=== PATIENT | female | born 1950 | race Caucasian/White ===

== ENCOUNTER 2018-08-30 13:00 | Observation (INO) | payer BC, MEDICARE ==
[2018-08-30] MEDS ORDERED: SODIUM CHLORIDE 0.9% 1,000 ML IV STA (13:09)
[2018-08-30] MEDS ORDERED: ONDANSETRON 4 MG/2 ML VIAL IVP STA (13:09)
[2018-08-30 13:12] VITALS: RESP 18
--- NOTE | 2018-08-30 13:13 | ED ---
General Adult HPI - General Stated complaint: Rectal Bleeding Time Seen by Provider: 08/30/18 13:00 Source: RN notes reviewed - History of Present Illness Initial comments: This is a 68-year-old female presents emergency department via EMS because she' s been having nausea vomiting and diarrhea since last Friday. Patient also states that there is blood in the stool. Patient denies any abdominal pain but EMS reports that when he presses her left flank she is tender. Family also called EMS because they thought she was a little bit lethargic and maybe even altered. Patient was alert and oriented 2 and she knew Peggy time but she couldn't remember the year though she did remember the president. Patient does appear lethargic. Patient's family is not here at this time but they will be coming later. Patient denies any fever chills per patient denies any chest pain palpitations difficulty breathing or shortness of breath. Patient denies any lightheadedness or dizziness. - Related Data Home Medications Medication Instructions Recorded Confirmed Zolpidem [Ambien] 10 mg PO HS PRN 05/03/15 08/30/18 Omeprazole 20 mg PO DAILY 08/30/18 08/30/18 Allergies Allergy/AdvReac Type Severity Reaction Status Date / Time No Known Allergies Allergy Verified 08/30/18 13:37 Review of Systems ROS Statement: Those systems with pertinent positive or pertinent negative responses have been documented in the HPI. ROS Other: All systems not noted in ROS Statement are negative. Past Medical History Past Medical History: No Reported History History of Any Multi-Drug Resistant Organisms: None Reported Past Surgical History: Orthopedic Surgery Past Psychological History: No Psychological Hx Reported Smoking Status: Never smoker Past Alcohol Use History: Occasional Past Drug Use History: None Reported General Exam - General Exam Comments Initial Comments: GENERAL: Patient is well-developed and well-nourished. Patient is nontoxic and well- hydrated and is in mild distress. ENT: Neck is soft and supple. No significant lymphadenopathy is noted. Oropharynx is clear. Dry mucous membranes. Neck has full range of motion without eliciting any pain. EYES: The sclera were anicteric and conjunctiva were pink and moist. Extraocular movements were intact and pupils were equal round and reactive to light. Eyelids were unremarkable. PULMONARY: Unlabored respirations. Good breath sounds bilaterally. No audible rales rhonchi or wheezing was noted. CARDIOVASCULAR: There is a regular rate and rhythm without any murmurs gallops or rubs. ABDOMEN: Patient has some slight left flank pain on palpation.. No palpable organomegaly was noted. There is no palpable pulsatile mass. SKIN: Skin is clear with no lesions or rashes and otherwise unremarkable. NEUROLOGIC: Patient is alert and oriented 2 with the only question she missed was a year but she was able since Christmastime and she knew the president. Cranial nerves II through XII are grossly intact. Motor and sensory are also intact. Normal speech, volume and content. Symmetrical smile. MUSCULOSKELETAL: Normal extremities with adequate strength and full range of motion. No lower extremity swelling or edema. No calf tenderness. LYMPHATICS: No significant lymphadenopathy is noted PSYCHIATRIC: Normal psychiatric evaluation. Course Vital Signs 08/30/18 08/30/18 13:06 14:15 Temperature 98.3 F Pulse Rate 95 89 Respiratory 18 18 Rate Blood Pressure 138/76 143/81 O2 Sat by Pulse 96 99 Oximetry Medical Decision Making - Lab Data Result diagrams: 08/30/18 13:10 08/30/18 13:10 Lab Results 08/30/18 08/30/18 08/30/18 Range/Units 13:10 13:10 13:10 WBC 11.0 H (3.8-10.6) k/uL RBC 3.66 L (3.80-5.40) m/uL Hgb 12.5 (11.4-16.0) gm/dL Hct 37.2 (34.0-46.0) % MCV 101.6 H (80.0-100.0) fL MCH 34.0 (25.0-35.0) pg MCHC 33.4 (31.0-37.0) g/dL RDW 11.8 (11.5-15.5) % Plt Count 169 (150-450) k/uL Neutrophils % 77 % Lymphocytes % 15 % Monocytes % 5 % Eosinophils % 1 % Basophils % 0 % Neutrophils # 8.4 H (1.3-7.7) k/uL Lymphocytes # 1.7 (1.0-4.8) k/uL Monocytes # 0.5 (0-1.0) k/uL Eosinophils # 0.1 (0-0.7) k/uL Basophils # 0.0 (0-0.2) k/uL PT (9.0-12.0) sec INR (<1.2) APTT (22.0-30.0) sec Sodium 136 L (137-145) mmol/L Potassium 3.9 (3.5-5.1) mmol/L Chloride 103 (98-107) mmol/L Carbon Dioxide 20 L (22-30) mmol/L Anion Gap 13 mmol/L BUN 13 (7-17) mg/dL Creatinine 0.64 (0.52-1.04) mg/dL Est GFR (CKD-EPI)AfAm >90 (>60 ml/min/1.73 sqM) Est GFR (CKD-EPI)NonAf >90 (>60 ml/min/1.73 sqM) Glucose 112 H (74-99) mg/dL Plasma Lactic Acid Quintin (0.7-2.0) mmol/L Calcium 8.8 (8.4-10.2) mg/dL Magnesium 1.6 (1.6-2.3) mg/dL Total Bilirubin 1.1 (0.2-1.3) mg/dL AST 56 H (14-36) U/L ALT 61 H (9-52) U/L Alkaline Phosphatase 93 (38-126) U/L Total Creatine Kinase 36 (30-135) U/L CK-MB (CK-2) 0.6 (0.0-2.4) ng/mL CK-MB (CK-2) Rel Index 1.7 Troponin I <0.012 (0.000-0.034) ng/mL Total Protein 7.1 (6.3-8.2) g/dL Albumin 3.7 (3.5-5.0) g/dL Lipase 96 (23-300) U/L Urine Color Urine Appearance (Clear) Urine pH (5.0-8.0) Ur Specific [place] (1.001-1.035) Urine Protein (Negative) Urine Glucose (UA) (Negative) Urine Ketones (Negative) Urine Blood (Negative) Urine Nitrite (Negative) Urine Bilirubin (Negative) Urine Urobilinogen (<2.0) mg/dL Ur Leukocyte Esterase (Negative) Urine RBC (0-5) /hpf Urine WBC (0-5) /hpf Ur Squamous Epith Cells (0-4) /hpf Urine Bacteria (None) /hpf Urine Mucus (None) /hpf Blood Type Blood Type Confirm Blood Type Recheck Antibody Screen Spec Expiration Date 08/30/18 08/30/18 08/30/18 Range/Units 13:10 13:10 13:10 WBC (3.8-10.6) k/uL RBC (3.80-5.40) m/uL Hgb (11.4-16.0) gm/dL Hct (34.0-46.0) % MCV (80.0-100.0) fL MCH (25.0-35.0) pg MCHC (31.0-37.0) g/dL RDW (11.5-15.5) % Plt Count (150-450) k/uL Neutrophils % % Lymphocytes % % Monocytes % % Eosinophils % % Basophils % % Neutrophils # (1.3-7.7) k/uL Lymphocytes # (1.0-4.8) k/uL Monocytes # (0-1.0) k/uL Eosinophils # (0-0.7) k/uL Basophils # (0-0.2) k/uL PT 11.2 (9.0-12.0) sec INR 1.1 (<1.2) APTT 23.0 (22.0-30.0) sec Sodium (137-145) mmol/L Potassium (3.5-5.1) mmol/L Chloride (98-107) mmol/L Carbon Dioxide (22-30) mmol/L Anion Gap mmol/L BUN (7-17) mg/dL Creatinine (0.52-1.04) mg/dL Est GFR (CKD-EPI)AfAm (>60 ml/min/1.73 sqM) Est GFR (CKD-EPI)NonAf (>60 ml/min/1.73 sqM) Glucose (74-99) mg/dL Plasma Lactic Acid Quintin 0.9 (0.7-2.0) mmol/L Calcium (8.4-10.2) mg/dL Magnesium (1.6-2.3) mg/dL Total Bilirubin (0.2-1.3) mg/dL AST (14-36) U/L ALT (9-52) U/L Alkaline Phosphatase (38-126) U/L Total Creatine Kinase (30-135) U/L CK-MB (CK-2) (0.0-2.4) ng/mL CK-MB (CK-2) Rel Index Troponin I (0.000-0.034) ng/mL Total Protein (6.3-8.2) g/dL Albumin (3.5-5.0) g/dL Lipase (23-300) U/L Urine Color Urine Appearance (Clear) Urine pH (5.0-8.0) Ur Specific [place] (1.001-1.035) Urine Protein (Negative) Urine Glucose (UA) (Negative) Urine Ketones (Negative) Urine Blood (Negative) Urine Nitrite (Negative) Urine Bilirubin (Negative) Urine Urobilinogen (<2.0) mg/dL Ur Leukocyte Esterase (Negative) Urine RBC (0-5) /hpf Urine WBC (0-5) /hpf Ur Squamous Epith Cells (0-4) /hpf Urine Bacteria (None) /hpf Urine Mucus (None) /hpf Blood Type O Positive Blood Type Confirm Blood Type Recheck CABO Indicated Antibody Screen NEGATIVE Spec Expiration Date 09/02/2018 - 230908/30/18 08/30/18 Range/Units 13:10 13:27 WBC (3.8-10.6) k/uL RBC (3.80-5.40) m/uL Hgb (11.4-16.0) gm/dL Hct (34.0-46.0) % MCV (80.0-100.0) fL MCH (25.0-35.0) pg MCHC (31.0-37.0) g/dL RDW (11.5-15.5) % Plt Count (150-450) k/uL Neutrophils % % Lymphocytes % % Monocytes % % Eosinophils % % Basophils % % Neutrophils # (1.3-7.7) k/uL Lymphocytes # (1.0-4.8) k/uL Monocytes # (0-1.0) k/uL Eosinophils # (0-0.7) k/uL Basophils # (0-0.2) k/uL PT (9.0-12.0) sec INR (<1.2) APTT (22.0-30.0) sec Sodium (137-145) mmol/L Potassium (3.5-5.1) mmol/L Chloride (98-107) mmol/L Carbon Dioxide (22-30) mmol/L Anion Gap mmol/L BUN (7-17) mg/dL Creatinine (0.52-1.04) mg/dL Est GFR (CKD-EPI)AfAm (>60 ml/min/1.73 sqM) Est GFR (CKD-EPI)NonAf (>60 ml/min/1.73 sqM) Glucose (74-99) mg/dL Plasma Lactic Acid Quintin (0.7-2.0) mmol/L Calcium (8.4-10.2) mg/dL Magnesium (1.6-2.3) mg/dL Total Bilirubin (0.2-1.3) mg/dL AST (14-36) U/L ALT (9-52) U/L Alkaline Phosphatase (38-126) U/L Total Creatine Kinase (30-135) U/L CK-MB (CK-2) (0.0-2.4) ng/mL CK-MB (CK-2) Rel Index Troponin I (0.000-0.034) ng/mL Total Protein (6.3-8.2) g/dL Albumin (3.5-5.0) g/dL Lipase (23-300) U/L Urine Color Yellow Urine Appearance Clear (Clear) Urine pH 6.0 (5.0-8.0) Ur Specific [place] 1.022 (1.001-1.035) Urine Protein Trace H (Negative) Urine Glucose (UA) Negative (Negative) Urine Ketones 4+ H (Negative) Urine Blood Negative (Negative) Urine Nitrite Positive H (Negative) Urine Bilirubin Negative (Negative) Urine Urobilinogen 4.0 (<2.0) mg/dL Ur Leukocyte Esterase Trace H (Negative) Urine RBC <1 (0-5) /hpf Urine WBC 8 H (0-5) /hpf Ur Squamous Epith Cells 1 (0-4) /hpf Urine Bacteria Many H (None) /hpf Urine Mucus Rare H (None) /hpf Blood Type Blood Type Confirm O Positive Blood Type Recheck Antibody Screen Spec Expiration Date Disposition Clinical Impression: Gastrointestinal hemorrhage, Urinary tract infection, Colitis, Altered mental status Disposition: ADMITTED IP TO THIS HOSP Referrals: None,Stated [Primary Care Provider] - 1-2 days Time of Disposition: 15:35
[2018-08-30 13:32] LABS: Basophils % (A) 0 %; Eosinophils # (A) 0.1 k/uL (0-0.7); Eosinophils % (A) 1 %; HCT 37.2 % (34.0-46.0); HGB 12.5 gm/dL (11.4-16.0); Lymphocytes # (A) 1.7 k/uL (1.0-4.8); Lymphocytes % (A) 15 %; MCHC 33.4 g/dL (31.0-37.0); MCV 101.6 fL (80.0-100.0); Mean Platelet Volume 7.2; Monocytes # (A) 0.5 k/uL (0-1.0); Monocytes % (A) 5 %; Neutrophils # (A) 8.4 k/uL (1.3-7.7); Neutrophils % (A) 77 %; Platelet Count 169 k/uL (150-450); RBC 3.66 m/uL (3.80-5.40); RDW 11.8 % (11.5-15.5)
[2018-08-30 13:41] LABS: INR 1.1 (<1.2); Prothrombin Time 11.2 sec (9.0-12.0)
[2018-08-30 13:42] LABS: ALT 61 U/L (9-52); AST 56 U/L (14-36); Albumin 3.7 g/dL (3.5-5.0); Alkaline Phosphatase 93 U/L (38-126); Anion Gap 13 mmol/L; Blood Urea Nitrogen 13 mg/dL (7-17); Calcium 8.8 mg/dL (8.4-10.2); Carbon Dioxide 20 mmol/L (22-30); Chloride 103 mmol/L (98-107); Glucose 112 mg/dL (74-99); Lipase 96 U/L (23-300); Magnesium 1.6 mg/dL (1.6-2.3); Potassium 3.9 mmol/L (3.5-5.1); Sodium 136 mmol/L (137-145); Total Bilirubin 1.1 mg/dL (0.2-1.3); Total Protein 7.1 g/dL (6.3-8.2)
[2018-08-30 13:50] LABS: Creatine Kinase 36 U/L (30-135)
[2018-08-30 13:53] LABS: Appearance,Urine Clear (Clear); Bacteria,Urine Many /hpf; Bilirubin,Urine Negative (Negative); Blood,Urine Negative (Negative); Color,Urine Yellow; Glucose,Urine (UA) Negative (Negative); Ketones,Urine 4+ (Negative); Leukocyte Esterase,Urine Trace (Negative); Mucus,Urine Rare /hpf; Nitrite,Urine Positive (Negative); Protein,Urine Trace (Negative); RBC,Urine <1 /hpf (0-5); Specific Gravity,Urine 1.022 (1.001-1.035); Squamous Epithelial Cell,Urine 1 /hpf (0-4); WBC,Urine 8 /hpf (0-5)
[2018-08-30 14:03] LABS: Creatine Kinase MB 0.6 ng/mL (0.0-2.4); Troponin I <0.012 ng/mL (0.000-0.034)
[2018-08-30] MEDS ORDERED: PANTOPRAZOLE 40 MG/10 ML VIAL IVP STA (14:07)
[2018-08-30] MEDS ORDERED: cefTRIAXone 2,000 MG in SODIUM CHLORIDE 0.9% 100 ML IVPB STA (14:36)
--- NOTE | 2018-08-30 15:31 | CT ---
EXAMINATION TYPE: CT abdomen pelvis w con DATE OF EXAM: 08/30/2018 COMPARISON: 02/23/2010 HISTORY: abdominal pain, rectal bleed, vomiting CT DLP: 645.7 mGycm Automated exposure control for dose reduction was used. TECHNIQUE: Helical acquisition of images was performed from the lung bases through the pelvis. CONTRAST: Performed without Oral Contrast and with IV Contrast, patient injected with 100 mL of Isovue 300. FINDINGS: There is patchy infiltrate and atelectasis at the posterior lung bases. Heart size is normal. There i s no pericardial effusion. There is small hiatal hernia. There are of the stomach appears normal. Karlene er shows no focal defect. Bile ducts are not dilated. Gallbladder is elongated. There is no evidence of a pancreatic mass. Left kidneys show satisfactory contrast opacification. There is no hydronephrosis. Right kidney shows deformity and severe cortical thinning. There is no retroperitoneal adenopathy. Bladder distends smoothly. There is no inguinal hernia. There is no free fluid in the pelvis. There is wall thickening and fat stranding around the splenic flexure of the colon. Wall measures up to 1 cm. There is slight wall thickening of the distal transverse colon also. There is some fluid in the left paracolic gutter with wall thickening of the proximal descending colon. There are compression fractures of multiple vertebra including L5 L3 L2 T11 and T9. There is up to 75 % anterior wedging. Uterus is anteverted. I see no pelvic mass. IMPRESSION: THERE IS INFLAMMATORY CHANGES AND WALL THICKENING OF THE SPLENIC FLEXURE OF THE COLON CONSISTENT WITH NONSPECIFIC COLITIS. THIS IS A CHANGE COMPARED TO OLD EXAM. THERE IS DEFORMITY AND THINNING OF THE CORTEX RIGHT KIDNEY WITH CLEARING OF THE SEVERE HYDRONEPHROSIS EVIDENT ON THE OLD CT SCAN. THERE IS NO BASILAR MILD PULMONARY INFILTRATES AND ATELECTASIS.
[2018-08-30] MEDS ORDERED: SODIUM CHLORIDE 0.9% 1,000 ML IV ONE (15:37)
[2018-08-30 19:42] VITALS: BMI 23.9
[2018-08-30] MEDS ORDERED: ZOLPIDEM 10 MG TAB PO PRN (21:02)
--- NOTE | 2018-08-30 23:06 | HP ---
HISTORY AND PHYSICAL CHIEF COMPLAINT: Bright red rectal bleeding. HISTORY OF PRESENT ILLNESS: This is the first admission for this 68-year-old, G1, P1, A0 white female. Several days ago she had some diarrhea and then it turned to bloody liquid stool. She had a little bit of mild abdominal cramping, but no nausea, vomiting, fever, chills, etc. Her sister came in on the day of admission and thought that she should go to the hospital. Apparently, she also seemed to be a little bit confused. She has otherwise been in excellent health. REVIEW OF SYSTEMS: She has had no headaches, focal neurologic deficits, change in vision or hearing, sensory, motor or cranial nerve abnormalities, shortness of breath, cough, hemoptysis, wheezing, asthma, hypertension, murmurs, rheumatic fever, palpitations, orthopnea, PND, ulcer disease. She does take Prilosec for chronic gastritis. She has had no prior history of any bowel problems including crampy abdominal pain, hematochezia, melena, etc. She has had no hematuria, frequency, urgency, dysuria, etc. Her urine does demonstrate the likelihood of a UTI. She is not diabetic. PAST MEDICAL HISTORY, FAMILY HISTORY, PERSONAL, SOCIAL HISTORY: Otherwise all unremarkable and noncontributory. She is not on any medication and she is not allergic. Surgically she has had bone spurs removed from her heels and she once had a left breast biopsy. MEDICATIONS: The only medication she takes is Ambien. She does not smoke. PHYSICAL EXAMINATION: Blood pressure 135/78 with a pulse of 83, respirations of 19, she is afebrile. In general, she appeared to be well developed, well nourished, in no acute distress. Skin color is normal skin is warm, dry. Lymph nodes not enlarged. Head, ears, eyes, nose, mouth, and throat were normal. Neck veins not distended. Thyroid not enlarged. Chest is clear. Cardiac exam is normal. Normal sinus rhythm and no murmurs or extra sounds. The abdomen is soft, nontender, without visceromegaly or masses. Bowel sounds are present. Extremities are normal. Neurologically she is intact. ADMITTING DIAGNOSES: 1. Hematochezia. 2. History of gastritis. 3. Urinary tract infection. PLAN: 1. Bedrest. 2. IV fluids. 3. Monitor GI activity and vital signs as well as hemoglobin. 4. Obtain gastroenterology referral for probable upper and lower GI endoscopies in the near future. MMODL / IJN: [id number] /
[2018-08-31 06:24] VITALS: BP 147/73; PULSE 96; TEMP 97.7
--- NOTE | 2018-08-31 09:46 | CONS ---
CONSULTATION DATE OF SERVICE: 08/31/2018 REASON FOR CONSULTATION: Rectal bleeding. HISTORY OF PRESENT ILLNESS: The patient is a 68-year-old pleasant white female came into the emergency room after having loose bloody bowel movement on Friday. Her sister came to see her the following day and brought her to the emergency room and subsequently admitted to the hospital for further evaluation. The patient states that for the last 3 days, she did not have any further episodes of bleeding. In fact, last night she had a brown bowel movement which was solid. She denies any abdominal pain. Never had these symptoms in the past. Never had a colonoscopy in the past. In the emergency room, she had a CT scan of the abdomen and pelvis done that showed thickening of the left colon consistent with colitis. PAST MEDICAL HISTORY: GERD. MEDICATIONS: Medications at home Prilosec and Ambien. ALLERGIES: None. SOCIAL HISTORY: No smoking or alcohol use. FAMILY HISTORY: Unremarkable. REVIEW OF SYSTEMS: CARDIOPULMONARY: No chest pain or shortness of breath. GENITOURINARY: No dysuria or hematuria. MUSCULOSKELETAL: Unremarkable. SKIN: Unremarkable. ENDOCRINE: Unremarkable. PSYCHIATRIC: Unremarkable. NEUROLOGY: Unremarkable. ENT/VISION: Unremarkable. CONSTITUTIONAL: No recent weight loss. No fever, chills, night sweats. PHYSICAL EXAMINATION: On physical examination, she appears comfortable. No apparent distress. Vital signs are stable. Blood pressure is 143/81, pulse rate 89, temperature 98.2. HEENT examination unremarkable. Conjunctivae pink. Sclerae anicteric. Oral cavity no lesions. NECK: No JVD or lymph node enlargement. Chest was clear to auscultation. HEART: Regular rate and rhythm. ABDOMEN: Soft. Bowel sounds are positive. No organomegaly. EXTREMITIES: No pedal edema. SKIN: No rashes. NEUROLOGIC: Alert and oriented x3. No focal deficits. LABS: Labs done at the time of admission to the hospital, WBC 11, hemoglobin 12.5, platelets are normal. Basic metabolic panel is within normal limits. CT of the abdomen and pelvis done yesterday in the emergency room showed thickening of the colon in the splenic flexure extending to the distal transverse colon and proximal descending colon consistent with colitis. IMPRESSION: This is a patient who presents to the hospital with one episode of bloody diarrhea that happened 3 days ago. Since then, she did not have any episodes of bleeding. She denies any abdominal pain. Never had these symptoms in the past. CAT scan of the abdomen showed thickening of the descending colon and distal transverse colon consistent with acute colitis. At this time, cannot rule out possibility of ischemic colitis versus infectious colitis, but appears to be very self-limited. The patient's symptoms have resolved and no further bleeding or diarrhea noted. RECOMMENDATIONS: 1. Advance to regular diet. 2. Discussed with the patient that she needs to have a colonoscopy done to investigate this further. Since she is doing well, I suggested that we can perform this on outpatient basis, but she elects to have this done at [facility]. The patient can be discharged home today. Thank you for this consultation. MMAKILL / KRZYSZTOFN: [id number] /
[2018-08-31 11:24] LABS: Basophils % (A) 0 %; Eosinophils # (A) 0.1 k/uL (0-0.7); Eosinophils % (A) 1 %; HCT 37.2 % (34.0-46.0); HGB 12.7 gm/dL (11.4-16.0); Lymphocytes # (A) 1.8 k/uL (1.0-4.8); Lymphocytes % (A) 23 %; MCH 34.8 pg (25.0-35.0); MCHC 34.1 g/dL (31.0-37.0); MCV 102.2 fL (80.0-100.0); Mean Platelet Volume 7.3; Monocytes # (A) 0.5 k/uL (0-1.0); Monocytes % (A) 6 %; Neutrophils # (A) 5.6 k/uL (1.3-7.7); Neutrophils % (A) 69 %; Platelet Count 178 k/uL (150-450); RBC 3.64 m/uL (3.80-5.40); RDW 12.1 % (11.5-15.5)
[2018-08-31 11:38] LABS: Anion Gap 13 mmol/L; Blood Urea Nitrogen 9 mg/dL (7-17); Carbon Dioxide 17 mmol/L (22-30); Chloride 109 mmol/L (98-107); Glucose 99 mg/dL (74-99); Potassium 4.1 mmol/L (3.5-5.1); Sodium 139 mmol/L (137-145)
[2018-08-31] MEDS ORDERED: SULFAMETHOX-TMP 800-160MG 1 EACH TAB PO SCH (21:00)
--- NOTE | 2018-09-01 07:45 | DS ---
DISCHARGE SUMMARY CHIEF COMPLAINT: History of hematochezia and urinary tract infection with episode of confusion. HISTORY OF PRESENT ILLNESS AND PHYSICAL EXAM: Details of this lady's history and physical can be found in the initial workup. COURSE IN HOSPITAL: After admission she was placed on bedrest and was started on intravenous fluids. She had no further abdominal pain, bleeding, etc. She remained stable and it was felt that she could be discharged on the . She will go home on Bactrim for urinary tract infection and she will follow up in a few days in the office. She will then be scheduled for a colonoscopy. FINAL DIAGNOSES: 1. Hematochezia, source unknown. 2. Urinary tract infection. OPERATIONS: None. CONSULTATIONS: Gastroenterology. She is improved. MMODL / IJN: [id number] /
== END 2018-08-31 13:30 | disposition home or self-care (01) ==
LOC: EC 13:00 → 3NMEDONC 16:00
PROVIDERS: ADMIT Family Medicine; ATTEND Family Medicine
DX: K29.51 Unspecified chronic gastritis with bleeding (principal); N39.0 Urinary tract infection, site not specified; K21.9 Gastro-esophageal reflux disease without esophagitis; Z79.899 Other long term (current) drug therapy
CPT/HCPCS: 96361; 96365; 96375; 99285; 36415; 86900; 86901; 80053; 80048; 82550; 82553; 83605; 83690; 83735; 84484; 85025 ×2; 85610; 85730; 86850; 81001; 87086; 87077; 87186; 74177; G0378 ×2; J2405; J0696; C9113; Q9967; 96360; 96374

== ENCOUNTER → 2019-04-07 | Outpatient (CLI) | payer MEDICARE ==
[2019-04-07 14:44] LABS: African American GFR (CKD) >90 (>60 ml/min/1.73 sqM); Blood Urea Nitrogen 12 mg/dL (7-17)
--- NOTE | 2019-04-07 16:37 | CT ---
EXAMINATION TYPE: CT abdomen w con DATE OF EXAM: 04/07/2019 COMPARISON: 08/30/2018 HISTORY: 69-year-old female Hematuria and left side flank pain. TECHNIQUE: Contiguous axial scanning of the abdomen and pelvis following administration of 100 ml Iso natacha 300 IV contrast. Delayed images through the kidneys and coronal/sagittal reconstructions perform ed. CT DLP: 402.2 mGycm Automated exposure control for dose reduction was used. FINDINGS: Heart normal size without pericardial effusion. Coronary vessel calcifications are present. Tortuous descending thoracic aorta. Residual mild strandy scarring/atelectasis in the lower lungs. No pleural effusion. Tiny hiatal hernia. A few tiny subcentimeter hypodensities within the liver are too small fractured CT characterization, likely cysts. Portal venous system is patent. No biliary ductal dilatation. Gallbladder, adrenal glands, spleen, and pancreas appear within normal limits. Redemonstrated atretic right kidney. Extra renal pelvis on the left. No dilated small bowel, free fluid, or free air. No mesenteric or retroperitoneal lymphadenopathy. Normal appendix. There is circumferential wall thickening involving the cecum and lower ascending colon and referred t o axial image 41. Otherwise, scattered mild to moderate stool within the colon. Moderate atherosclerotic calcifications abdominal aorta and iliac arteries. The pelvis is not imaged. Bones: Osteopenia. Redemonstrated superior endplate deformities of L2 and L3. T11 vertebral compressi on collapse is present previously. There is new fracture along the anterior inferior endplate of T10. No retropulsion into the spinal canal. IMPRESSION: 1. MODERATE CIRCUMFERENCE WALL THICKENING OF THE CECUM AND LOWER ASCENDING COLON. FINDINGS SUGGEST NO NSPECIFIC COLITIS. CLINICALLY CORRELATE. WE NOTE THAT THE PATIENT HAD A BOUT OF COLITIS ON 08/30/2018 WELL. 2. NEW T10 VERTEBRAL COMPRESSION COLLAPSE COMPARED TO 08/30/2018 STILL AGE INDETERMINATE, EITHER S UBACUTE OR CHRONIC GIVEN THE LACK OF SURROUNDING SOFT TISSUE SWELLING. NO RETROPULSION INTO THE SPINA L CANAL. 3. OLD COMPRESSION DEFORMITY OF T11 AND SUPERIOR ENDPLATE DEFORMITIES OF L2 AND L3. 4. REDEMONSTRATED ATRETIC RIGHT KIDNEY. 5. NOTE THAT THE PELVIS IS NOT EVALUATED ON THIS STUDY.
--- NOTE | 2019-04-07 17:09 | US ---
EXAMINATION TYPE: US carotid duplex BILAT DATE OF EXAM: 04/07/2019 COMPARISON: NONE CLINICAL HISTORY: R31.9 Hematuria, R10.9L flank pain,R42 Orthostatic. Dizziness EXAM MEASUREMENTS: RIGHT: Peak Systolic Velocity (PSV) cm/sec ----- Right CCA: 54.6 ----- Right ICA: 82.2 ----- Right ECA: 97.7 ICA/CCA ratio: 1.5 RIGHT: End Diastole cm/sec ----- Right CCA: 14.5 ----- Right ICA: 31.5 ----- Right ECA: 11.7 LEFT: Peak Systolic Velocity (PSV) cm/sec ----- Left CCA: 56.0 ----- Left ICA: 116.9 ----- Left ECA: 69.7 ICA/CCA ratio: 2.1 LEFT: End Diastole cm/sec ----- Left CCA: 20.0 ----- Left ICA: 37.3 ----- Left ECA: 12.6 VERTEBRALS (direction of flow): Right Vertebral: Antegrade Left Vertebral: Antegrade Rhythm: Normal IMPRESSION: Bilateral intimal thickening with plaque bilateral bulb plaque; no elevated velocities.
== END | disposition home or self-care (01) ==
LOC: RADCTMAIN 14:07
PROVIDERS: ATTEND Family Medicine
DX: K63.89 Other specified diseases of intestine (principal); Q89.8 Other specified congenital malformations; I65.23 Occlusion and stenosis of bilateral carotid arteries
CPT/HCPCS: 82565; 84520; 93880; 74160; 36415; Q9967

== ENCOUNTER → 2020-06-14 | Outpatient (CLI) | payer MEDICARE ==
--- NOTE | 2020-06-14 13:53 | XR ---
EXAMINATION TYPE: XR chest 2V DATE OF EXAM: 06/14/2020 CLINICAL HISTORY: Pulmonary hypertension. History of heart murmur. TECHNIQUE: Frontal and lateral views of the chest are obtained. COMPARISON: Chest radiograph 04/23/2015. CT abdomen 04/07/2019. FINDINGS: The cardiomediastinal silhouette is within normal limits for size. No pulmonary vascular c ongestion. There is mild peripheral pruning of the pulmonary vasculature. Subsegmental atelectasis an d/or scarring of the bilateral lung bases redemonstrated. There is no focal air space opacity, pleura l effusion, or pneumothorax seen. There is increased thoracic kyphosis, with compression deformities of T10, T11, L2, and L3. There is mild progression of the T10 vertebral body compression deformity ve rsus 04/07/2019 CT comparison. IMPRESSION: 1. No acute cardiopulmonary process. 2. Peripheral pruning of the pulmonary vasculature may represent pulmonary hypertension. 3. Increased thoracic kyphosis with multiple thoracolumbar vertebral body compression deformities. Mi ld progression of the T10 vertebral body height loss versus 04/07/2019 CT.
--- NOTE | 2020-06-14 19:51 | ECHOF ---
Referral Reason:I27.20 Pulmonary hypertension MEASUREMENTS -------- HEIGHT: 152.4 cm WEIGHT: 54.9 kg BP: RVIDd: 2.3 cm (< 3.3) IVSd: 1.0 cm (0.6 - 1.1) LVIDd: 4.1 cm (3.9 - 5.3) LVPWd: 1.0 cm (0.6 - 1.1) IVSs: 1.3 cm LVIDs: 2.6 cm LVPWs: 1.4 cm LA Diam: 2.7 cm (2.7 - 3.8) LAESV Index (A-L): 17.64 ml/m Ao Diam: 2.9 cm (2.0 - 3.7) AV Cusp: 2.2 cm (1.5 - 2.6) MV EXCURSION: 16.139 mm (> 18.000) MV EF SLOPE: 81 mm/s (70 - 150) EPSS: 0.4 cm MV E Sergio: 0.73 m/s MV DecT: 237 ms MV A Sergio: 0.77 m/s MV E/A Ratio: 0.95 RAP: 5.00 mmHg RVSP: 24.94 mmHg FINDINGS -------- Sinus rhythm. This was a technically good study. The left ventricular size is normal. Left ventricular wall thickness is normal. Overall left vent ricular systolic function is normal with, an EF between 60 - 65 %. The right ventricle is normal in size. Normal LA size by volume 22+/-6 ml/m2. The right atrium is normal in size. Interatrial and interventricular septum intact. The aortic valve is trileaflet and appears structurally normal. There is trace to mild mitral regurgitation. The tricuspid valve appears structurally normal. Trace tricuspid regurgitation present. The right ventricular systolic pressure, as measured by Doppler, is 24.94mmHg. Trace/mild (physiologic) pulmonic regurgitation. The aortic root size is normal. Normal inferior vena cava with normal inspiratory collapse consistent with estimated right atrial pre ssure of 5 mmHg. There is no pericardial effusion. CONCLUSIONS -------- 1. The left ventricular size is normal. 2. Left ventricular wall thickness is normal. 3. Overall left ventricular systolic function is normal with, an EF between 60 - 65 %. 4. There is trace to mild mitral regurgitation. 5. Trace tricuspid regurgitation present. 6. The right ventricular systolic pressure, as measured by Doppler, is 24.94mmHg. 7. Trace/mild (physiologic) pulmonic regurgitation. 8. There is no pericardial effusion. BANJO REPAIR PERSON: Yeimi Aguilera RDCS
== END | disposition home or self-care (01) ==
LOC: RADECHMAIN 12:05
PROVIDERS: ATTEND Internal Medicine Geriatric Medicine
DX: I27.20 Pulmonary hypertension, unspecified (principal); M40.294 Other kyphosis, thoracic region; G95.29 Other cord compression
CPT/HCPCS: 71046; 93306

== ENCOUNTER → 2020-07-10 | Outpatient (CLI) | payer MEDICARE ==
[2020-07-10 09:53] LABS: Basophils # (A) 0.1 k/uL (0-0.2); Basophils % (A) 1 %; Eosinophils # (A) 0.1 k/uL (0-0.7); Eosinophils % (A) 2 %; HCT 39.1 % (34.0-46.0); HGB 12.7 gm/dL (11.4-16.0); Lymphocytes # (A) 1.7 k/uL (1.0-4.8); Lymphocytes % (A) 30 %; MCH 35.3 pg (25.0-35.0); MCHC 32.4 g/dL (31.0-37.0); Macrocytosis Moderate; Mean Platelet Volume 7.4; Monocytes # (A) 0.3 k/uL (0-1.0); Monocytes % (A) 6 %; Neutrophils # (A) 3.4 k/uL (1.3-7.7); Neutrophils % (A) 60 %; Platelet Count 151 k/uL (150-450); RBC 3.59 m/uL (3.80-5.40); RDW 11.5 % (11.5-15.5); WBC 5.7 k/uL (3.8-10.6)
[2020-07-10 14:44] LABS: African American GFR (CKD) 87.8 (60.0-200.0); Albumin 4.2 g/dL (3.80-4.90); Albumin/Globulin Ratio 1.56 (1.60-3.17); Anion Gap 7.8 mmol/L (4.00-12.00); BUN/Creat Ratio 12.5 Ratio (12.00-20.00); Calcium 9.2 mg/dL (8.7-10.3); Carbon Dioxide 25.2 mmol/L (21.6-31.8); Chol/HDL Ratio 3.51; Globulin 2.7 g/dL (1.6-3.3); LDL Cholesterol,Calculated 74.6 mg/dL (0.0-131.0); Non-African American GFR(CKD) 75.8 (60.0-200.0); Total Bilirubin 0.6 mg/dL (0.2-1.2); Total Protein 6.9 g/dL (6.2-8.2); VLDL Calculation 18.4 mg/dL (5.00-40.00)
== END | disposition home or self-care (01) ==
LOC: LABWHC1 08:38
PROVIDERS: ATTEND Internal Medicine Geriatric Medicine
DX: K52.9 Noninfective gastroenteritis and colitis, unspecified (principal); I27.20 Pulmonary hypertension, unspecified; E03.9 Hypothyroidism, unspecified; M81.0 Age-related osteoporosis without current pathological fracture
CPT/HCPCS: 36415; 80053; 80061; 82306; 84443; 85025

== ENCOUNTER → 2021-06-25 | Outpatient (CLI) | payer MEDICARE ==
--- NOTE | 2021-06-25 12:05 | US ---
EXAMINATION TYPE: US liver DATE OF EXAM: 06/25/2021 COMPARISON: 02/15/2020 CLINICAL HISTORY: R94.5 Abnormal LFT studies EXAM MEASUREMENTS: Liver Length: 13.1 cm Gallbladder Wall: 0.2 cm CBD: 0.4 cm Right Kidney: 4.7 x 2.5 x 1.6 cm Pancreas: echogenic Liver: no mass seen Gallbladder: no stones seen Evidence for sonographic Vega's sign: No CBD: wnl Right Kidney: Ill defined Small amount of fluid seen in RUQ IMPRESSION: 1. The right kidney is markedly ill-defined. Additional imaging can be performed if clinically warran lavon. 2. Ascites. No definite focal liver lesion, however, MRI is more sensitive.
== END | disposition home or self-care (01) ==
LOC: RADUSWWP 08:52
PROVIDERS: ATTEND Internal Medicine Geriatric Medicine
DX: R18.8 Other ascites (principal)
CPT/HCPCS: 76705

== ENCOUNTER → 2021-07-16 | Outpatient (CLI) | payer MEDICARE ==
[2021-07-16 16:55] LABS: African American GFR (CKD) >90 (>60 ml/min/1.73 sqM); Blood Urea Nitrogen 11 mg/dL (7-17); Non-African American GFR(CKD) >90 (>60 ml/min/1.73 sqM)
--- NOTE | 2021-07-17 08:57 | CT ---
EXAMINATION TYPE: CT abdomen w con DATE OF EXAM: 07/16/2021 COMPARISON: NONE HISTORY: 71-year-old female abnormal liver function labs. R94.5. TECHNIQUE: Contiguous axial scanning of the abdomen following administration of 100 ml Isovue 300 IV contrast. Delayed images through the kidneys and coronal/sagittal reconstructions performed. CT DLP: 613 mGycm Automated exposure control for dose reduction was used. FINDINGS: Heart normal size without pericardial effusion. Coronary artery calcifications are present and are a marker for coronary artery disease. Strandy atelectasis/scarring in the visualized lower lungs. Tiny hiatal hernia. A few scattered subcentimeter hypodensities within the liver too small for accurate CT characterizati on, likely small cyst. The gallbladder extends anteriorly to extend superiorly along the anterior right liver lobe. Portal v enous system is patent. Bile duct mildly dilated at 7 mm. This may be acceptable given patient's age. No distal obstructing lesion is identified. Previously measured up to 5 mm. Adrenal glands, spleen, and pancreas within normal limits. 9 mm cyst anterior upper pole of the liver . Atretic right kidney redemonstrated. Similar ill-defined soft tissue in the right renal sinus region compared to 2019. Moderate atherosclerotic calcifications infrarenal abdominal aorta and iliac arteries. No dilated small bowel, free fluid, or free air. No mesenteric or retroperitoneal lymphadenopathy. Some liquid stool in the right side of the colon likely transient. No pericolic inflammatory change s een. Bones: Severe compression collapse of T10 and T11 are unchanged. Superior endplate deformities of L2 and L3 are also unchanged from 2019. Accentuated kyphosis at the thoracolumbar junction. Baastrup's d isease. IMPRESSION: 1. THE GALLBLADDER IS INTERPOSED AND FLATTENED BETWEEN THE ANTERIOR LIVER MARGIN AND THE ANTERIOR ABD OMINAL WALL, LIKELY TRANSIENT. 2. BILE DUCT MILDLY DILATED AT 7 MM VERSUS 5 MM IN 2019. THIS MAY BE ACCEPTABLE GIVEN PATIENT'S AGE. CORRELATE WITH ALKALINE PHOSPHATASE AND BILIRUBIN LEVELS TO EXCLUDE EARLY BILIARY OBSTRUCTION. NO DIS MATEO OBSTRUCTING LESION IS IDENTIFIED BY CT.
== END | disposition home or self-care (01) ==
LOC: RADCTMAIN 16:08
PROVIDERS: ATTEND Internal Medicine Geriatric Medicine
DX: K83.8 Other specified diseases of biliary tract (principal); R94.5 Abnormal results of liver function studies
CPT/HCPCS: 82565; 84520; 74160; 36415; Q9967

== ENCOUNTER → 2021-10-18 | Outpatient (CLI) | payer MEDICARE ==
--- NOTE | 2021-10-19 14:19 | ECHOS ---
STRESS ECHOCARDIOGRAM DATE OF STUDY: 10/18/2021 INDICATIONS: Chest discomfort. BASELINE HEART RATE: 91 BASELINE BLOOD PRESSURE: 154/66 MAXIMUM HEART RATE: 135 MAXIMUM BLOOD PRESSURE: 199/65 85% MPHR: 128 100% MPHR: 151 METS: 1.6 MAXIMUM STAGE REACHED: 1 TOTAL EXERCISE TIME: 3 min. CLINICAL INFORMATION: STRESS DATA: Heart rate 91, pressure 154/66 mmHg. Baseline EKG showed sinus mechanism. The patient exercised on the treadmill according to Alfredo protocol for a total of 3 minutes and 25 seconds and achieved 1.6 METS. Max heart rate was 135, which is about 89% of maximum predicted heart rate, with maximum blood pressure of 195/65 mmHg. Clinically the patient did not have any symptoms of chest pain or chest discomfort during the testing or on recovery. The EKG showed abnormalities with about [address]-segment changes in the inferolateral leads. Echocardiogram images from parasternal long axis view, parasternal short axis view, apical 4-chamber and apical 2-chamber views were obtained as the baseline images at the peak of the heart rate as well as on recovery. The echocardiogram images showed questionable area in the basal inferior wall of the left ventricle concerning for ischemia. CONCLUSION: 1. Poor exercise tolerance. 2. Abnormal EKG in response to exercise. 3. Abnormal echocardiogram in response to exercise with inferolateral hypokinesia concerning for severe underlying coronary artery disease. MMODL / IJN: [id number] /
== END | disposition home or self-care (01) ==
LOC: RADNMMAIN 09:46
PROVIDERS: ATTEND Internal Medicine Geriatric Medicine
DX: R94.31 Abnormal electrocardiogram [ECG] [EKG] (principal); R93.1 Abnormal findings on diagnostic imaging of heart and coronary circulation
CPT/HCPCS: 93351

== ENCOUNTER 2022-04-21 16:48 | Emergency (ER) | payer MEDICARE ==
[2022-04-21 17:33] VITALS: RESP 18; TEMP 98.3
[2022-04-21] MEDS ORDERED: KETOROLAC 15 MG/ML 1 ML VIAL IVP STA (18:04)
--- NOTE | 2022-04-21 19:15 | CT ---
EXAMINATION TYPE: CT pelvis wo con CT DLP: 298.3 mGycm, Automated exposure control for dose reduction was used. DATE OF EXAM: 04/21/2022 6:39 PM COMPARISON: CT abdomen pelvis 07/16/2021, RIBS/chest radiograph 04/21/2022 CLINICAL INDICATION:Female, 72 years old with history of fall, concern for pubic fx; pain in left low er pelvis after fall TECHNIQUE: Axial CT of the pelvis. Sagittal and coronal reformats were created on a separate worksta tion. 3-D reformatted images were performed on a separate workstation. Contrast used: None Oral contrast used: without Oral Contrast FINDINGS: LOWER ABDOMEN BOWEL: Distal colonic bowel is grossly unremarkable. Few colonic diverticula are noted. No evidence o f bowel obstruction. Appendix is normal. PERITONEUM: No evidence of pneumoperitoneum or free fluid. BLADDER: Normal in appearance. REPRODUCTIVE: No suspicious adnexal lesions. VASCULATURE: Moderate atherosclerotic calcifications are present throughout the abdominal aorta and i ts branches. No evidence of aortic aneurysm. MUSCULOSKELETAL: Diffuse osteopenia. Minimally displaced left superior and inferior pubic rami fractu re (series 202, image 58 and 69). Oblique lucency involving the right sacral ala and sacroiliac joint with air foci tracking internally (series 203, image 67-71). Additionally, there is a similar-appear ing lucency paralleling the left sacroiliac joint containing air foci (series 203, image 68), concern ing for nondisplaced fractures. These were not present on prior CT abdomen pelvis from 08/30/2018. LYMPH NODES: No gross evidence for lymphadenopathy. SOFT TISSUE/ABDOMINAL WALL: Mild fat stranding and edema of the lower left anterior pubis/body wall. Mild intramuscular edema of the left pelvic girdle. IMPRESSION: 1. Minimally displaced superior and inferior left pubic rami fractures. There is associated soft tiss ue swelling and intramuscular edema. 2. Suspected nondisplaced bilateral sacral alar fractures.
--- NOTE | 2022-04-21 19:18 | XR ---
EXAMINATION TYPE: XR ribs LT w pa chest x-ray DATE OF EXAM: 04/21/2022 6:39 PM INDICATION: Patient age:Female; 72 years old; Reason for study: fall, left pelvic pain. COMPARISON: Chest x-ray 06/14/2020 TECHNIQUE: Frontal and oblique views of the left ribs with frontal chest radiograph. FINDINGS: The ribs have a normal appearance. No evidence for displaced fracture. Overall, the lungs are clear. The cardiac silhouette is normal in size. Vascular sclerosis of the aortic arch. The nona ining osseous structures are intact. IMPRESSION RIBS: No evidence for displaced rib fracture or acute cardiopulmonary process.
[2022-04-21 19:23] LABS: Appearance,Urine Clear (Clear); Bilirubin,Urine Negative (Negative); Blood,Urine Trace (Negative); Color,Urine Yellow; Glucose,Urine (UA) Negative (Negative); Hyaline Casts,Urine 3 /lpf (0-2); Ketones,Urine 1+ (Negative); Leukocyte Esterase,Urine Small (Negative); Mucus,Urine Rare /hpf; Nitrite,Urine Negative (Negative); Protein,Urine Trace (Negative); RBC,Urine 5 /hpf (0-5); Squamous Epithelial Cell,Urine 2 /hpf (0-4); WBC,Urine 11 /hpf (0-5)
[2022-04-21] MEDS ORDERED: HYDROcodone/APAP 7.5-325MG 1 EACH TAB PO ONE (20:11)
[2022-04-21 20:19] VITALS: BP 169/109; PULSE 90
--- NOTE | 2022-04-21 20:19 | ED ---
Fall HPI - General Chief Complaint: Fall Stated Complaint: Fall, pelvic pain Time Seen by Provider: 04/21/22 17:35 Source: patient, EMS Mode of arrival: EMS - History of Present Illness Initial Comments: 72-year-old female with no reported past medical history presents emergency department with left-sided rib pain and left pubic pain. States that she sustained a fall on Friday where she landed on her left side. She denies hitting her head or losing consciousness. Denies that she had a syncopal episode. She was able to get up and ambulate after the fall. Reports that she has been taking some tramadol at home for her pain and it has been helping somewhat however she has now been forced to ambulate with a walker. Due to her worsening symptoms her family did call an ambulance to have her evaluated. She denies any numbness, tingling or weakness into her legs. Pain is not present unless she is ambulatory. Does admit to some left-sided chest wall pain with palpation. No shortness of breath. No neck or back pain. No other alleviating, precipitating or modifying factors - Related Data Home Medications Medication Instructions Recorded Confirmed Zolpidem [Ambien] 10 mg PO HS PRN 05/03/15 08/30/18 Omeprazole 20 mg PO DAILY 08/30/18 08/30/18 Previous Rx's Medication Instructions Recorded Sulfamethox-Tmp 800-160Mg [Bactrim 1 each PO BID #20 tab 08/31/18 DS 800-160 mg] HYDROcodone/APAP 7.5-325MG [Bridgeton 1 tab PO Q4HR PRN 3 Days #18 tab 04/21/22 7.5-325] Allergies Allergy/AdvReac Type Severity Reaction Status Date / Time No Known Allergies Allergy Verified 04/21/22 17:32 Review of Systems ROS Statement: Those systems with pertinent positive or pertinent negative responses have been documented in the HPI. ROS Other: All systems not noted in ROS Statement are negative. Past Medical History Past Medical History: No Reported History History of Any Multi-Drug Resistant Organisms: None Reported Past Surgical History: Orthopedic Surgery Past Psychological History: No Psychological Hx Reported Past Alcohol Use History: Occasional Past Drug Use History: None Reported General Exam General appearance: alert, in no apparent distress Head exam: Present: atraumatic, normocephalic, normal inspection Eye exam: Present: normal appearance, PERRL, EOMI. Absent: scleral icterus, conjunctival injection, periorbital swelling ENT exam: Present: normal exam, mucous membranes moist Neck exam: Present: normal inspection. Absent: tenderness, meningismus, lymphadenopathy Respiratory exam: Present: normal lung sounds bilaterally, chest wall tenderness (left lateral ribs). Absent: respiratory distress, wheezes, rales, rhonchi, stridor Cardiovascular Exam: Present: regular rate, normal rhythm, normal heart sounds. Absent: systolic murmur, diastolic murmur, rubs, gallop, clicks GI/Abdominal exam: Present: soft, tenderness (left pubic region. ecchymosis overlying this region. no large hematoma), normal bowel sounds. Absent: distended, guarding, rebound, rigid Extremities exam: Present: normal inspection, full ROM, normal capillary refill. Absent: tenderness, pedal edema, joint swelling, calf tenderness Back exam: Present: normal inspection Neurological exam: Present: alert, oriented X3, CN II-XII intact Psychiatric exam: Present: normal affect, normal mood Skin exam: Present: warm, dry, intact, normal color. Absent: rash Course Vital Signs 04/21/22 04/21/22 17:28 20:18 Temperature 98.3 F Pulse Rate 85 90 Respiratory 18 18 Rate Blood Pressure 139/68 169/109 O2 Sat by Pulse 97 97 Oximetry Medical Decision Making - Medical Decision Making Upon arrival patient was placed into room 10. Thorough history and physical exam was performed. Patient was given a dose of Toradol for pain control. X- rays of the left ribs and chest was performed. Patient additionally sent over for a CT of her pelvis. CT does reveal that she has bilateral sacral ala fractures. Also has superior and inferior pubic rami fractures on the left. Called and spoke with Dr. Cooper. He is agreeable to seeing the patient in the office tomorrow or observing the patient overnight for pain control. Patient does want to go home at this time. She was given a Bridgeton for pain control and additional Bridgeton was called and the pharmacy. Recommend that she alternates taking Motrin and Tylenol every 4 hours. Call the office in the morning for an appointment. Return for any new or worsening symptoms. Patient agreeable the plan was discharged home in stable condition - Lab Data Lab Results 04/21/22 Range/Units 19:03 Urine Color Yellow Urine Appearance Clear (Clear) Urine pH 6.0 (5.0-8.0) Ur Specific [place] 1.020 (1.001-1.035) Urine Protein Trace H (Negative) Urine Glucose (UA) Negative (Negative) Urine Ketones 1+ H (Negative) Urine Blood Trace H (Negative) Urine Nitrite Negative (Negative) Urine Bilirubin Negative (Negative) Urine Urobilinogen 2.0 (<2.0) mg/dL Ur Leukocyte Esterase Small H (Negative) Urine RBC 5 (0-5) /hpf Urine WBC 11 H (0-5) /hpf Ur Squamous Epith Cells 2 (0-4) /hpf Hyaline Casts 3 H (0-2) /lpf Urine Mucus Rare H (None) /hpf Disposition Clinical Impression: Fall, Fracture of pubic ramus, Sacral fracture, closed Disposition: HOME SELF-CARE Condition: Stable Additional Instructions: Please alternate taking Motrin 600 mg with the Bridgeton every 4 hours. Do not take any extra Tylenol as the Bridgeton has tylenol in it. Call the office in the morning to make an appointment with Dr. Cooper. He will see you tomorrow or Friday in the office. Return to the ED for any new or worsening symptoms. Prescriptions: HYDROcodone/APAP 7.5-325MG [Bridgeton 7.5-325] 1 tab PO Q4HR PRN 3 Days #18 tab PRN Reason: Pain Is patient prescribed a controlled substance at d/c from ED?: Yes When asked, does pt state using other controlled substances?: No If prescribed controlled substance>3 days was MAPS reviewed?: Prescribed <3 Days Referrals: Popeye Rodriguez MD [Primary Care Provider] - 1-2 days Shar Cooper MD [Medical Doctor] - 1-2 days Time of Disposition: 20:19
== END 2022-04-21 20:34 | disposition home or self-care (01) ==
LOC: EC 16:48
DX: S32.592A Other specified fracture of left pubis, initial encounter for closed fracture (principal); S32.10XA Unspecified fracture of sacrum, initial encounter for closed fracture; W19.XXXA Unspecified fall, initial encounter
CPT/HCPCS: 81001; 71101; 72192; 99284; 96374; J1885

== ENCOUNTER → 2022-05-07 | Outpatient (CLI) | payer MEDICARE ==
--- NOTE | 2022-05-07 16:47 | US ---
EXAMINATION TYPE: US venous doppler duplex LE LT DATE OF EXAM: 05/07/2022 4:26 PM COMPARISON: NONE CLINICAL HISTORY: S32.502D Fx LEFT PUBIS, R60.9 Edema, M25.552 Pain. left leg bruising since pelvic f racture 3 weeks ago, no h/o dvt SIDE PERFORMED: Left TECHNIQUE: The lower extremity deep venous system is examined utilizing real time linear array sonog javy with graded compression, doppler sonography and color-flow sonography. VESSELS IMAGED: Common Femoral Vein Deep Femoral Vein Greater Saphenous Vein * Femoral Vein Popliteal Vein Small Saphenous Vein * Proximal Calf Veins (* superficial vessels) Left Leg: Negative for DVT left message with office of negative findings IMPRESSION: No evidence of deep vein thrombosis in the left leg.
== END | disposition home or self-care (01) ==
LOC: RADUSWWP 15:34
PROVIDERS: ATTEND Orthopaedic Surgery
DX: S32.502D Unspecified fracture of left pubis, subsequent encounter for fracture with routine healing (principal); R60.9 Edema, unspecified

== ENCOUNTER → 2024-03-16 | Outpatient (CLI) | payer MEDICARE ==
--- NOTE | 2024-03-16 10:16 | US ---
EXAMINATION TYPE: US venous doppler duplex LE DATE OF EXAM: 03/16/2024 9:52 AM COMPARISON: NONE CLINICAL INDICATION: Female, 73 years old with history of I80.9 PHLEBITIS nad thrombophlebitis of uns pecified site; edema SIDE PERFORMED: Bilateral TECHNIQUE: The lower extremity deep venous system is examined utilizing real time linear array sonog javy with graded compression, doppler sonography and color-flow sonography. VESSELS IMAGED: Common Femoral Vein Deep Femoral Vein Greater Saphenous Vein * Femoral Vein Popliteal Vein Small Saphenous Vein * Proximal Calf Veins (* superficial vessels) Right Leg: Negative for DVT Left Leg: Negative for DVT IMPRESSION: Grayscale, color doppler, spectral doppler imaging performed of the deep veins of the lo wer extremities. There is normal flow, compressibility, vascular waveforms.
== END | disposition home or self-care (01) ==
LOC: RADUSWWP 09:31
PROVIDERS: ATTEND Orthopaedic Surgery
DX: I80.9 Phlebitis and thrombophlebitis of unspecified site (principal); M25.571 Pain in right ankle and joints of right foot; R60.0 Localized edema; M79.661 Pain in right lower leg; M79.662 Pain in left lower leg
CPT/HCPCS: 93970

== ENCOUNTER → 2024-04-06 | Outpatient (CLI) | payer MEDICARE ==
--- NOTE | 2024-04-06 20:03 | US ---
EXAMINATION TYPE: US Aorta Screening DATE OF EXAM: 04/06/2024 COMPARISON: CT 2020 CLINICAL INDICATION: Female, 74 years old with history of I71.40 ABDOMINAL AORTIC ANEURYSM, WITHOUT R UPTURE,; TECHNIQUE: Multiple sonographic images of the abdominal aorta are obtained. FINDINGS: EXAM MEASUREMENTS: Abdominal Aorta: Proximal: 1.7 x 1.9cm Mid: 1.3 x 1.4cm Distal: 1.3 x 1.2cm Bifurcation: Right Iliac: 0.9 x 0.6cm Left Iliac: 0.9 x 0.6cm Atherosclerotic changes, no AAA seen IMPRESSION: Atherosclerotic changes with no evidence of aortic aneurysm.
== END | disposition home or self-care (01) ==
LOC: RADUSWWP 08:01
PROVIDERS: ATTEND Internal Medicine Geriatric Medicine
DX: I70.0 Atherosclerosis of aorta (principal); I71.40 Abdominal aortic aneurysm, without rupture, unspecified
CPT/HCPCS: 76706

== ENCOUNTER 2024-04-22 11:06 | Inpatient (IN) | payer MEDICARE ==
[~2024-04-22 11:06] MED LIST: SODIUM CHLORIDE 0.9% 1,000 ML BAG ONE
[2024-04-22] MEDS ORDERED: SODIUM CHLORIDE 0.9% 500 ML BAG ONE (11:15)
[2024-04-22] MEDS ORDERED: MORPHINE SULFATE 2 MG/ML SYRINGE ONE ×4 (11:42→21:40)
[2024-04-22] MEDS ORDERED: ACETAMINOPHEN TAB 325 MG TAB ONE (21:40)
[2024-04-22] MEDS ORDERED: SODIUM CHLORIDE 0.9% 1,000 ML BAG ONE (23:59)
[2024-04-23] MEDS ORDERED: MORPHINE SULFATE 2 MG/ML SYRINGE ONE ×5 (00:38→14:49)
[2024-04-23] MEDS ORDERED: LACTATED RINGERS 1,000 ML BAG ONE (17:00)
[2024-04-23] MEDS ORDERED: DEXAMETHASONE SOD PHOSPHATE 4 MG/ML 1 ML VIAL ONE (17:58)
[2024-04-23] MEDS ORDERED: HYDROmorphone (PF) 1 MG/ML ONE (17:58)
[2024-04-23] MEDS ORDERED: TRANEXAMIC 1,000 MG/100ML-NACL PREMIX BAG ONE (17:58)
[2024-04-23] MEDS ORDERED: fentaNYL (PF) 50 MCG/ML 2 ML AMP ONE (17:58)
[2024-04-23] MEDS ORDERED: PHENYLEPHRINE-0.9% NACL SYG 1,000 MCG/10 ML SYRINGE ONE (17:58)
[2024-04-23] MEDS ORDERED: SUCCINYLCHOLINE CHLORIDE 200 MG/10 ML VIAL IV ONE (17:58)
[2024-04-23] MEDS ORDERED: ROCURONIUM 10 MG/ML (5 ML VIAL) IV ONE (17:58)
[2024-04-23] MEDS ORDERED: NEOSTIGMINE 1 MG/ML 10 ML VIAL ONE (17:58)
[2024-04-23] MEDS ORDERED: PROPOFOL 10 MG/ML 20 ML VIAL IV ONE (17:58)
[2024-04-23] MEDS ORDERED: LIDOCAINE 1% INJ 10MG/ML (20 ML MDV) ONE (17:58)
[2024-04-23] MEDS ORDERED: GLYCOPYRROLATE 0.2 MG/ML 2 ML VIAL ONE (17:58)
[2024-04-23] MEDS ORDERED: ONDANSETRON 4 MG/2 ML VIAL ONE ×2 (17:58→20:17)
[2024-04-23] MEDS ORDERED: MIDAZOLAM 2 MG/2 ML VIAL ONE (17:58)
[2024-04-23] MEDS ORDERED: ceFAZolin 1 GM/50 ML BAG (PMX) ONE (17:58)
[2024-04-23] MEDS ORDERED: diphenhydrAMINE 50 MG/ML 1 ML VIAL ONE (21:00)
[2024-04-24] MEDS ORDERED: SENNOSIDES-DOCUSATE SODIUM 1 EACH TAB PO ONE ×2 (00:33→21:08)
[2024-04-24] MEDS ORDERED: ZOLPIDEM 5 MG TAB ONE ×2 (00:34→21:08)
[2024-04-24] MEDS ORDERED: HYDROcodone/APAP 5-325MG 1 EACH TAB ONE (06:24)
[2024-04-24] MEDS ORDERED: ONDANSETRON 4 MG/2 ML VIAL ONE (06:24)
[2024-04-24] MEDS ORDERED: hydrOXYzine pamoate 25 MG CAP ONE (06:24)
[2024-04-24] MEDS ORDERED: PANTOPRAZOLE 40 MG TABLET PO ONE (08:52)
[2024-04-24] MEDS ORDERED: ASPIRIN 81 MG ONE ×2 (08:52→21:08)
[2024-04-24] MEDS ORDERED: MORPHINE SULFATE 2 MG/ML SYRINGE ONE ×3 (11:51→19:21)
[2024-04-24] MEDS ORDERED: HYDROmorphone 0.5 MG/0.5 ML SYRINGE ONE (21:09)
[2024-04-24] MEDS ORDERED: SODIUM CHLORIDE 0.9% 50 ML BAG ONE (23:59)
[2024-04-25] MEDS ORDERED: HYDROmorphone 0.5 MG/0.5 ML SYRINGE ONE ×5 (04:10→18:43)
[2024-04-25] MEDS ORDERED: ASPIRIN 81 MG ONE ×2 (08:37→20:22)
[2024-04-25] MEDS ORDERED: PANTOPRAZOLE 40 MG TABLET PO ONE (08:37)
[2024-04-25] MEDS ORDERED: ZOLPIDEM 5 MG TAB ONE (20:22)
[2024-04-25] MEDS ORDERED: SENNOSIDES-DOCUSATE SODIUM 1 EACH TAB PO ONE (20:22)
[2024-04-26] MEDS ORDERED: HYDROmorphone 0.5 MG/0.5 ML SYRINGE ONE ×2 (03:46→07:46)
[2024-04-26] MEDS ORDERED: PANTOPRAZOLE 40 MG TABLET PO ONE (07:46)
[2024-04-26] MEDS ORDERED: ASPIRIN 81 MG ONE (07:46)
[2024-04-26] MEDS ORDERED: HYDROcodone/APAP 5-325MG 1 EACH TAB ONE ×2 (11:56→17:14)
[2024-04-26] MEDS ORDERED: hydrOXYzine pamoate 25 MG CAP ONE ×2 (11:56→17:14)
--- NOTE | 2024-05-21 11:10 | OP ---
OPERATIVE REPORT DATE OF SERVICE : 04/23/2024 PREOPERATIVE DIAGNOSES: 1. Comminuted left basicervical intertrochanteric hip fracture. 2. Severe osteopenia. 3. Multiple prior fragility fractures. POSTOPERATIVE DIAGNOSES: 1. Comminuted left basicervical intertrochanteric hip fracture. 2. Severe osteopenia. 3. Multiple prior fragility fractures. PROCEDURE: Operative fixation of left intertrochanteric hip fracture of long intramedullary hip screw. PARTS ASSEMBLER: Porter Cohen PA-C (a skilled mobile sales assistant was required due to the complexity of the surgery for the patient positioning, draping, exposure, retraction, placing the hardware, closure of wound, and application of dressing). ANESTHESIA: General. FLUIDS: 900 mL of crystalloids. BLOOD LOSS: 50 mL. COMPLICATIONS: None. INDICATION: The patient is a very pleasant 74-year-old female with a medical history significant for severe osteopenia and multiple prior fragility fractures. She sustained a fall where she got tangled in her walker resulting in isolated injury to her left hip. She was brought to the ER where x-rays showed a displaced basicervical intertrochanteric hip fracture. Due to the location of the fracture and her severe osteopenia, my recommendation is to stabilize the fracture and protect the whole femur with a long intramedullary hip screw. The patient and her understand her high risk of further fracture, loss of fixation, varus collapse, and lag screw cut up given her poor bone quality. We had a long discussion on the potential risks and complications of surgery. These risks are outlined in the History and Physical. Both the patient and her provided their consent to go forward with surgery, acknowledging the risk of complication. DESCRIPTION OF PROCEDURE: The patient was identified in the preoperative holding, and the correct left leg was marked with my initials. I reviewed the consent form with the patient and her . All of their questions were answered. The patient was then brought back to the operating room by Anesthesia. While still on the gurney, she was given a general anesthetic, preoperative antibiotics, and tranexamic acid. Boots for the [place] table were then applied to both feet. She was then carefully transferred onto the [place] table. Both boots were attached to spars and tightened. The peroneal post was placed. The right arm was placed to the side and secured with foam and tape. The left ipsilateral arm was draped across the chest with a pillow, foam, and tape. Non-sterile drapes were applied. At this point, a time-out was performed identifying the correct patient, operative extremity, and procedure. At this point, the height of the table was elevated. And the contralateral right leg was dropped to the floor and scissored to facilitate imaging. An operative left extremity was manipulated using the [place] table for reduction. A combination of longitudinal traction, internal rotation, and adduction was performed. Fluoroscopy was brought and the fracture appeared to be reasonably well reduced on both the AP and lateral view. C-arm was then brought out and the leg was prepped and draped in the standard sterile fashion. Prior to starting surgery, another time-out was performed and all attendants agreed. I began by outlining the anatomy of the femur. A 3 cm incision was made in-line with the femur, 3 cm proximal to the greater trochanter. The incision was carried down to the skin, subcutaneous, and fascia to the tip of the greater trochanter. A sharp awl was placed just medial to the tip of the greater trochanter on AP view and linear with the canal of the femur on the lateral view. Due to the patient's poor bone quality, I was able to advance the awl under fluoroscopic guidance into the proximal femur. A long ball-tip guidewire was placed through the awl into the distal femur. An opening reamer was then used over the guidewire to open the canal. was used to verify position of the guidewire on an AP and lateral view of both the proximal and distal femur. The guidewire appeared to be well centered in the distal femur. A cannulated measuring device was used to measure the size of the nail. At this point, a 12.5 mm reamer was placed by hand and easily advanced to the isthmus of the femur. A long 11 mm nail was dispensed and hooked up to the targeting arm. I verified that the targeting arm and trochanters lined up with the corresponding slots of the nail. The nail was then gently advanced over the guidewire under fluoroscopic guidance distally into the femur. Once the nail had fully set, the position was verified using fluoroscopy on both AP and lateral views of the hip and knee. Once I was happy with the depth of insertion and targeting arm was used to place the guide pin in the center- center position of the femoral head. A stab incision was placed through the skin where the trochar lined up with the skin and carried down to the lateral cortex of the femur. The double sleeve was advanced to the lateral cortex of the femur. A 3.2 mm guide pin was advanced into the center-center position and verified both on AP and lateral views. The depth of the reamer was set and the reamer was advanced into the femoral head. A measuring device was used and a corresponding partially threaded lag screw was applied getting descent purchase on the femoral head. There was no loss of reduction. A set screw was then placed proximally into the nail, fully tightened, and brought off a quarter turn to allow some compression. I verified that there was no movement of the lag screw. Attention was then turned distally. Perfect circles were obtained and a single distal interlocking screw was placed using the freehand technique for a stab incision over the lateral aspect of the femur. At this point, the proximal targeting arm was removed. Final fluoroscopic images including AP views of the proximal and distal femur and lateral views of the proximal and distal femur were obtained, which showed excellent reduction of the fracture and adequate position of the hardware. All wounds were then thoroughly irrigated and closed in layers. Sterile dressings were applied. The patient was then awakened from her anesthetic, transferred from the OR table to a gurney, and brought to recovery, having tolerated the procedure well. PLAN: The patient is going to be admitted under my care. She will receive 2 doses of postoperative antibiotics. She will be given aspirin for DVT prophylaxis. Internal Medicine for perioperative medical management. She used to be toe touch weightbearing and on her left leg given her exceedingly poor bone quality. Discharge planning is in process. She will need follow up in the office in 2 weeks for nonweightbearing x-rays of the pelvis and left femur. MMODL / IJN: [id number] /
--- NOTE | 2024-05-24 13:53 | XR ---
Site ID [facility] Patient Briana Vanegas ID [id number] Order # Procedure XR Hip Complete LT EXAMINATION TYPE: XR Hip LT and AP Pelvis DATE OF EXAM: 04/22/2024 12:14 PM CLINICAL INDICATION: Fall COMPARISON: THIS EXAM WAS READ DURING PACS DOWNTIME, NO PRIORS AVAILABLE. TECHNIQUE: XR Hip LT and AP Pelvis; hip was examined in the frontal and lateral projections and a AP pelvis. FINDINGS/IMPRESSION: Left proximal femur intertrochanteric fracture with varus deformity. No other fractures visualized.
--- NOTE | 2024-05-24 13:56 | XR ---
Site ID [facility] Patient Briana Vanegas ID [id number] Order # Procedure XR chest 1V EXAMINATION TYPE: XR chest 1V DATE OF EXAM: 04/22/2024 12:12 PM CLINICAL INDICATION: Fall COMPARISON: Chest radiographs from TECHNIQUE: XR chest 1V Frontal view of the chest. FINDINGS: Lungs/Pleura: There is no evidence of pleural effusion, focal consolidation, or pneumothorax. Pulmonary vascularity: Unremarkable. Heart/mediastinum: Cardiomediastinal silhouette is unremarkable. Musculoskeletal: No acute osseous pathology. Other findings: None Lines/Tubes: IMPRESSION: No acute cardiopulmonary disease/process.
--- NOTE | 2024-06-03 14:42 | HP ---
HISTORY AND PHYSICAL HISTORY OF PRESENT ILLNESS: The patient is a very pleasant female with a medical history significant of having severe osteopenia and multiple prior fragility fractures of both upper and lower extremities, who was admitted yesterday to the hospital following a ground level fall resulting in isolated entry to her left hip. The patient and her state that she got caught in her walker and fell landing on her left hip. She had immediate pain and inability to ambulate. She was brought to the emergency department where x-ray showed a displaced basicervical intertrochanteric hip fracture. Orthopedics was followed and she was admitted under my care. At the time of my evaluation, the patient is complaining of isolated pain in her left hip and a superficial skin tear over the proximal aspect of her left leg. She denies hitting her head or losing consciousness. At her baseline, she uses a walker due to multiple prior fragility fractures. She lives at home with her . PAST MEDICAL HISTORY: Severe osteopenia. PAST SURGICAL HISTORY: Unknown. MEDICATIONS: Unknown. ALLERGIES: Unknown. SOCIAL HISTORY: The patient is not a smoker. She lives at home with her . She denies any illicit drug use. FAMILY HISTORY: Unknown. REVIEW OF SYSTEMS: A 12-point review of systems was negative except for left hip pain. PHYSICAL EXAMINATION: HEENT: The patient's head is normocephalic and atraumatic. RESPIRATORY: She demonstrates nonlabored breathing with symmetric chest expansion. HEART: She has palpable pulses and her heart rate is regular. ABDOMEN: Soft and nonobese. INTEGUMENT: Shows multiple bruises in the upper and lower extremities. She also has a skin care over the left proximal leg. EXTREMITIES: Her bilateral upper extremities are nontender and without deformity. The right lower extremity is without deformity. It is nontender. A focussed exam of the left lower extremity was conducted. On inspection, the left leg is shortened and externally rotated. There is moderate swelling throughout the left thigh. There is a superficial skin tear over the anterolateral aspect of the proximal tibia. She has tenderness diffusely over the left hip and pain with any attempts at passive range of motion. Her knee and ankle are nontender. Both thigh and calf are soft. She was able to actively plantar flex and dorsiflex her ankle and toes. Sensation is intact to light touch of the left foot. DIAGNOSTIC STUDIES: Labs, nor available at this time for review. IMAGING: X-rays including an AP pelvis and views of the left hip show a comminuted basicervical intertrochanteric hip fracture with a separate lesser trochanter fracture. There is also severe osteopenia. ASSESSMENT: The patient is a very pleasant 74-year-old woman with severe osteopenia presenting with a displaced basicervical intertrochanteric hip fracture. PLAN: I had a long discussion with both the patient and her on treatment options. My recommendation was to proceed with operative stabilization of her entire femur with a long cephalomedullary nail. We discussed the potential risks and complications of this, particularly given her incredibly good bone quality. The patient and her understand the potential for loss of fixation and further fractures given her severe osteopenia. We discussed the potential risks and complications in length including but certainly not limited to risks from anesthesia, superficial infection, deep infection, delayed wound healing, nonunion, malunion, refracture, loss of fixation, varus collapse, cutout of the lag screw, damage to local blood vessels or nerves, inability to regain preinjury level of function, DVT, PE, other medical complications, and possibly loss of life or limb. The patient voiced her understanding of this potential complications, while also acknowledging other less common complications. They provided both their verbal and written consent to go forward with surgery. MMODL / IJN: [id number] /
--- NOTE | 2024-06-08 18:21 | FL ---
EXAMINATION TYPE: FL guidance operating room, XR Hip Complete RT DATE OF EXAM: 05/18/2024 8:37 AM COMPARISON: Pre Operative Images if available both CT/MRI or plain film CLINICAL INDICATION: Female, 74 years old with history of IT NAIL IN OR RIGHT HIP; TECHNIQUE: FL guidance operating room, XR Hip Complete RT, multiple fluoroscopic images provided for procedure. Total fluoroscopy time: 2.42 minutes Total submitted images to PACS: 8 DAP: 7.1941 mGym2 Gycm2 uGym2 cGycm2 or equivalent. FINDINGS: Fluoroscopic images during internal fixation/arthroplasty demonstrate fixation hardware in appropriat e position. Hardware appears intact. No immediate complication identified. IMPRESSION: 1. No evidence for intraoperative complication. 2. Please see the operative/procedural note for further details. [facility], , 06/08/2024 6:19 PM
== END 2024-04-25 18:14 | DRG 482 ==
LOC: DISRECOVER 11:06
PROVIDERS: ADMIT Internal Medicine Geriatric Medicine; ATTEND Internal Medicine Geriatric Medicine
PROC: 0QS736Z Reposition Left Upper Femur with Intramedullary Internal Fixation Device, Percutaneous Approach (ICD-10-PCS; principal; 2024-04-23)
DX: S72.142A Displaced intertrochanteric fracture of left femur, initial encounter for closed fracture (principal); W01.0XXA Fall on same level from slipping, tripping and stumbling without subsequent striking against object, initial encounter; S40.812A Abrasion of left upper arm, initial encounter; Y92.012 Bathroom of single-family (private) house as the place of occurrence of the external cause; M85.80 Other specified disorders of bone density and structure, unspecified site; S81.812A Laceration without foreign body, left lower leg, initial encounter; F41.9 Anxiety disorder, unspecified; F10.10 Alcohol abuse, uncomplicated; Z79.899 Other long term (current) drug therapy
CPT/HCPCS: 71045; 73502; 86850; 86900; 86901; 93005; 99285

== ENCOUNTER 2024-07-12 07:18 | Inpatient (IN) | payer MEDICARE ==
--- NOTE | 2024-07-12 07:38 | ED ---
Abdominal Pain HPI - General Chief Complaint: Abdominal Pain Stated Complaint: abd pain lower R quadrant Time Seen by Provider: 07/12/24 07:21 Source: patient, EMS, RN notes reviewed Mode of arrival: EMS Limitations: no limitations - History of Present Illness Initial Comments: This is a 74-year-old female who presents to the emergency department for abd ominal pain. Patient reports right sided abdominal pain beginning last night. Pain does not radiate anywhere. She has occasional nausea but no vomiting. She has felt warm but has not measured any fevers. Denies any changes in bowel or bladder habits. Denies any difficulty with urination. Denies any history of similar pain in the past or any history of abdominal surgeries. MD Complaint: abdominal pain - Related Data Home Medications Medication Instructions Recorded Confirmed Zolpidem [Ambien] 10 mg PO HS 05/03/15 07/12/24 ALPRAZolam [Xanax] 0.25 mg PO BID PRN 07/12/24 07/12/24 Alendronate Sodium [Fosamax] 70 mg PO SWE[place]Y 07/12/24 07/12/24 Ergocalciferol (Vitamin D2) 1,250 mcg PO Q14D 07/12/24 07/12/24 [Drisdol (50,000 Iu)] Ibuprofen [Motrin] 600 mg PO TID PRN 07/12/24 07/12/24 traZODone HCL [Desyrel] 50 - 100 mg PO HS PRN 07/12/24 07/12/24 Allergies Allergy/AdvReac Type Severity Reaction Status Date / Time No Known Allergies Allergy Verified 07/12/24 09:41 Review of Systems ROS Statement: Those systems with pertinent positive or pertinent negative responses have been documented in the HPI. ROS Other: All systems not noted in ROS Statement are negative. Past Medical History Past Medical History: No Reported History History of Any Multi-Drug Resistant Organisms: None Reported Past Surgical History: Orthopedic Surgery Past Psychological History: No Psychological Hx Reported Smoking Status: Former smoker Past Alcohol Use History: Occasional Past Drug Use History: None Reported General Exam Limitations: no limitations General appearance: alert, in no apparent distress Head exam: Present: atraumatic, normocephalic, normal inspection Respiratory exam: Present: normal lung sounds bilaterally. Absent: respiratory distress, wheezes, rales, rhonchi, stridor Cardiovascular Exam: Present: regular rate, normal rhythm, normal heart sounds. Absent: systolic murmur, diastolic murmur, rubs, gallop, clicks GI/Abdominal exam: Present: soft, tenderness (Right sided), normal bowel sounds. Absent: distended Neurological exam: Present: alert, oriented X3, CN II-XII intact Psychiatric exam: Present: normal affect, normal mood Skin exam: Present: warm, dry, intact, normal color. Absent: rash Course Vital Signs 07/12/24 07/12/24 07/12/24 07:20 09:00 10:25 Pulse Rate 101 H 105 H 81 Respiratory 20 20 20 Rate Blood Pressure 146/70 142/78 129/69 O2 Sat by Pulse 93 L 97 95 Oximetry 07/12/24 11:52 Pulse Rate 74 Respiratory 20 Rate Blood Pressure 123/77 O2 Sat by Pulse 95 Oximetry Medical Decision Making - Medical Decision Making This is a 74 year old female who presents to the emergency department for abdominal pain. Was pt. sent in by a medical professional or institution? @ -No Did you speak to anyone other than the patient for history? @ -No Did you review nursing and triage notes? @ -Yes, and I agree, it is accurate with regards to the patient's symptoms. Were old charts reviewed? @ -No Differential Diagnosis? @ -Differential Abdominal Pain Women: Appendicitis, Cholecystitis, diverticulosis, ischemic bowel, pancreatitis, hepatitis, UTI, gastroenteritis, AAA, incarcerated hernia, bowel obstruction, constipation, inflammatory bowel, hepatitis, peptic ulcer disease, splenic i nfarction, perforated viscus, vulvitis, ovarian torsion, PID, kidney stone, placenta abruption, this is not meant to be an all-inclusive list EKG interpreted by me (3pts min.)? @ -EKG interpreted by me demonstrating the following: Sinus rhythm. Ventricular rate 87 bpm, HI interval 183 ms, QRS duration 99 ms, QTc 440 ms. X-rays interpreted by me (1pt min.)? @ -Not obtained CT interpreted by me (1pt min.)? @ -CT scan of the abdomen and pelvis obtained. My interpretation identifies a cystic mass on the right side of the abdomen. U/S interpreted by me (1pt. min.)? @ -Not obtained What testing was considered but not performed? (CT, X-rays, U/S, labs)? Why? @ -None What meds were considered but not given? Why? @ -None Did you discuss the management of the patient with other professionals? @ -Yes, Dr. Luna, urology, who advised that she can follow-up in the office outpatient regarding the mass if her pain is controlled. Dr. Li accepts the patient for admission to medicine. Did you reconcile home meds? @ -Yes Was smoking cessation discussed for >3mins.? @ -No Was critical care preformed (if so, how long)? @ -No Were there social determinants of health that impacted care today? How? (Homelessness, low income, unemployed, alcoholism, drug addiction, transportation, low edu. Level, literacy, decrease access to med. care, long-term, rehab)? @ -No Was there de-escalation of care discussed even if they declined? (Discuss DNR or withdrawal of care, Hospice)? @ -No What co-morbidities impacted this encounter? (DM, HTN, Smoking, COPD, CAD, Cancer, CVA, Hep., AIDS, mental health diagnosis, sleep apnea, morbid obesity)? @ -None Was patient admitted / discharged? @ -Admitted. Lab work demonstrates hypokalemia with a potassium of 2.6. Magnesium is 1.2. 400 mg of magnesium oxide and 2 g of magnesium sulfate administered. Urinalysis consistent with infection and urine was sent for culture. She was given 40 mEq of K-Dur and 20 mEq of IVPB potassium chloride for the hypokalemia. 1 g of Rocephin administered for the UTI. CT scan of the abdomen and pelvis demonstrates a large cystic mass in the right upper quadrant possibly related to severe right-sided UPJ obstruction and hydronephrosis. This is in an area of a previous atrophic kidney by prior multiple CT scans. The cystic mass does result in mild compression of the gallbladder with mild intrahepatic and extrahepatic biliary ductal dilation as well. Case discussed with Dr. Luna, urology. He advised that if pain can be controlled, patient can follow-up in the office outpatient. This was discussed with the patient. She was given multiple rounds of pain medication, but continued to be in fairly severe distress. Given the level of her pain with other electrolyte abnormalities, patient was admitted to medicine for further care. Consult placed for urology. Case discussed with ED attending Dr. Haddad. Undiagnosed new problem with uncertain prognosis? @ -None Drug Therapy requiring intensive monitoring for toxicity (Heparin, Nitro, Insulin, Cardizem)? @ -None Were any procedures done? @ -None Diagnosis/symptom? @ -Intractable abdominal pain, right renal mass, hypokalemia, hypomagnesemia Acute, or Chronic, or Acute on Chronic? @ -Acute Uncomplicated (without systemic symptoms) or Complicated (systemic symptoms)? @ -Complicated Side effects of treatment? @ -None Exacerbation, Progression, or Severe Exacerbation] @ -Not applicable Poses a threat to life or bodily function? @ -Yes, the electrolyte abnormalities can become life-threatening if they continue to worsen. Her pain is also limiting her ability to function. - Lab Data Result diagrams: 07/12/24 07:37 07/12/24 14:32 Lab Results 07/12/24 07/12/24 07/12/24 Range/Units 07:37 07:37 07:37 WBC 9.9 (3.8-10.6) k/uL RBC 3.67 L (3.80-5.40) m/uL Hgb 12.9 (11.4-16.0) gm/dL Hct 37.4 (34.0-46.0) % MCV 101.8 H (80.0-100.0) fL MCH 35.0 (25.0-35.0) pg MCHC 34.4 (31.0-37.0) g/dL RDW 11.7 (11.5-15.5) % Plt Count 314 (150-450) k/uL MPV 7.4 Neutrophils % 84 % Lymphocytes % 7 % Monocytes % 7 % Eosinophils % 0 % Basophils % 0 % Neutrophils # 8.3 H (1.3-7.7) k/uL Lymphocytes # 0.7 L (1.0-4.8) k/uL Monocytes # 0.7 (0-1.0) k/uL Eosinophils # 0.0 (0-0.7) k/uL Basophils # 0.0 (0-0.2) k/uL PT 12.4 (10.0-12.5) sec INR 1.2 H (<1.2) APTT 20.3 L (22.0-30.0) sec Sodium 134 L (137-145) mmol/L Potassium 2.6 L* (3.5-5.1) mmol/L Chloride 99 (98-107) mmol/L Carbon Dioxide 22 (22-30) mmol/L Anion Gap 13 mmol/L BUN 14 (7-17) mg/dL Creatinine 0.44 L (0.52-1.04) mg/dL Est GFR (CKD-EPI)AfAm >90 (>60 ml/min/1.73 sqM) Est GFR (CKD-EPI)NonAf >90 (>60 ml/min/1.73 sqM) Glucose 236 H (74-99) mg/dL Plasma Lactic Acid Quintin (0.7-2.0) mmol/L Calcium 8.3 L (8.4-10.2) mg/dL Phosphorus (2.5-4.5) mg/dL Magnesium (1.6-2.3) mg/dL Total Bilirubin 1.0 (0.2-1.3) mg/dL AST 50 H (14-36) U/L ALT 62 H (4-34) U/L Alkaline Phosphatase 81 (38-126) U/L Total Protein 6.8 (6.3-8.2) g/dL Albumin 3.5 (3.5-5.0) g/dL Amylase 35 (30-110) U/L Lipase 46 (23-300) U/L Urine Color Urine Appearance (Clear) Urine pH (5.0-8.0) Ur Specific [place] (1.001-1.035) Urine Protein (Negative) Urine Glucose (UA) (Negative) Urine Ketones (Negative) Urine Blood (Negative) Urine Nitrite (Negative) Urine Bilirubin (Negative) Urine Urobilinogen (<2.0) mg/dL Ur Leukocyte Esterase (Negative) Urine RBC (0-5) /hpf Urine WBC (0-5) /hpf Ur Squamous Epith Cells (0-4) /hpf Urine Bacteria (None) /hpf Urine Mucus (None) /hpf 07/12/24 07/12/24 07/12/24 Range/Units 07:37 07:37 07:37 WBC (3.8-10.6) k/uL RBC (3.80-5.40) m/uL Hgb (11.4-16.0) gm/dL Hct (34.0-46.0) % MCV (80.0-100.0) fL MCH (25.0-35.0) pg MCHC (31.0-37.0) g/dL RDW (11.5-15.5) % Plt Count (150-450) k/uL MPV Neutrophils % % Lymphocytes % % Monocytes % % Eosinophils % % Basophils % % Neutrophils # (1.3-7.7) k/uL Lymphocytes # (1.0-4.8) k/uL Monocytes # (0-1.0) k/uL Eosinophils # (0-0.7) k/uL Basophils # (0-0.2) k/uL PT (10.0-12.5) sec INR (<1.2) APTT (22.0-30.0) sec Sodium (137-145) mmol/L Potassium (3.5-5.1) mmol/L Chloride (98-107) mmol/L Carbon Dioxide (22-30) mmol/L Anion Gap mmol/L BUN (7-17) mg/dL Creatinine (0.52-1.04) mg/dL Est GFR (CKD-EPI)AfAm (>60 ml/min/1.73 sqM) Est GFR (CKD-EPI)NonAf (>60 ml/min/1.73 sqM) Glucose (74-99) mg/dL Plasma Lactic Acid Quintin 1.5 (0.7-2.0) mmol/L Calcium (8.4-10.2) mg/dL Phosphorus 3.0 (2.5-4.5) mg/dL Magnesium 1.2 L (1.6-2.3) mg/dL Total Bilirubin (0.2-1.3) mg/dL AST (14-36) U/L ALT (4-34) U/L Alkaline Phosphatase (38-126) U/L Total Protein (6.3-8.2) g/dL Albumin (3.5-5.0) g/dL Amylase (30-110) U/L Lipase (23-300) U/L Urine Color Yellow Urine Appearance Clear (Clear) Urine pH 6.5 (5.0-8.0) Ur Specific [place] 1.024 (1.001-1.035) Urine Protein 1+ H (Negative) Urine Glucose (UA) Negative (Negative) Urine Ketones Negative (Negative) Urine Blood Negative (Negative) Urine Nitrite Positive H (Negative) Urine Bilirubin Negative (Negative) Urine Urobilinogen 3.0 (<2.0) mg/dL Ur Leukocyte Esterase Small H (Negative) Urine RBC 1 (0-5) /hpf Urine WBC 20 H (0-5) /hpf Ur Squamous Epith Cells 3 (0-4) /hpf Urine Bacteria Occasional H (None) /hpf Urine Mucus Rare H (None) /hpf - Radiology Data Radiology results: report reviewed, image reviewed Disposition Clinical Impression: Intractable abdominal pain, Renal mass, right, UTI (urinary tract infection), Hypokalemia, Hypomagnesemia Disposition: ADMITTED IP TO THIS HOSP
[2024-07-12 07:50] LABS: Basophils % (A) 0 %; Eosinophils % (A) 0 %; HCT 37.4 % (34.0-46.0); HGB 12.9 gm/dL (11.4-16.0); Lymphocytes # (A) 0.7 k/uL (1.0-4.8); Lymphocytes % (A) 7 %; MCHC 34.4 g/dL (31.0-37.0); MCV 101.8 fL (80.0-100.0); Mean Platelet Volume 7.4; Monocytes # (A) 0.7 k/uL (0-1.0); Monocytes % (A) 7 %; Neutrophils # (A) 8.3 k/uL (1.3-7.7); Neutrophils % (A) 84 %; Platelet Count 314 k/uL (150-450); RBC 3.67 m/uL (3.80-5.40); RDW 11.7 % (11.5-15.5); WBC 9.9 k/uL (3.8-10.6)
[2024-07-12] MEDS: KETOROLAC 15 MG/ML 1 ML VIAL IVP STA ×2 (07:59→10:39)
[2024-07-12] MEDS: MORPHINE SULFATE 4 MG/ML SYRINGE IVP STA (07:59)
[2024-07-12] MEDS: SODIUM CHLORIDE 0.9% 1,000 ML IV STA (08:00)
[2024-07-12 08:02] LABS: ALT 62 U/L (4-34); AST 50 U/L (14-36); African American GFR (CKD) >90 (>60 ml/min/1.73 sqM); Albumin 3.5 g/dL (3.5-5.0); Alkaline Phosphatase 81 U/L (38-126); Amylase 35 U/L (30-110); Anion Gap 13 mmol/L; Blood Urea Nitrogen 14 mg/dL (7-17); Calcium 8.3 mg/dL (8.4-10.2); Carbon Dioxide 22 mmol/L (22-30); Chloride 99 mmol/L (98-107); Glucose 236 mg/dL (74-99); Lipase 46 U/L (23-300); Non-African American GFR(CKD) >90 (>60 ml/min/1.73 sqM); Sodium 134 mmol/L (137-145); Total Protein 6.8 g/dL (6.3-8.2)
[2024-07-12 08:14] LABS: Potassium 2.6 mmol/L (3.5-5.1)
[2024-07-12 08:18] LABS: Appearance,Urine Clear (Clear); Bacteria,Urine Occasional /hpf; Bilirubin,Urine Negative (Negative); Blood,Urine Negative (Negative); Color,Urine Yellow; Glucose,Urine (UA) Negative (Negative); Ketones,Urine Negative (Negative); Leukocyte Esterase,Urine Small (Negative); Mucus,Urine Rare /hpf; Nitrite,Urine Positive (Negative); PH, Urine 6.5 (5.0-8.0); Protein,Urine 1+ (Negative); RBC,Urine 1 /hpf (0-5); Specific Gravity,Urine 1.024 (1.001-1.035); Squamous Epithelial Cell,Urine 3 /hpf (0-4); WBC,Urine 20 /hpf (0-5)
[2024-07-12 08:20] LABS: INR 1.2 (<1.2); Prothrombin Time 12.4 sec (10.0-12.5)
[2024-07-12 08:23] LABS: Partial Thromboplastin Time 20.3 sec (22.0-30.0)
[2024-07-12 08:49] LABS: Magnesium 1.2 mg/dL (1.6-2.3)
[2024-07-12] MEDS: MAGNESIUM SULFATE-D5W PMX 1 GM in DEXTROSE/WATER 1 100ML.BAG IVPB SCH (09:08)
[2024-07-12] MEDS: ONDANSETRON 4 MG/2 ML VIAL IVP STA ×2 (09:09→10:38)
[2024-07-12] MEDS: POTASSIUM CHLORIDE ER 20 MEQ TAB.ER PO STA ×2 (09:10→16:08)
[2024-07-12] MEDS: MAGNESIUM OXIDE 400 MG TAB PO STA (09:10)
--- NOTE | 2024-07-12 09:23 | CT ---
EXAMINATION TYPE: CT abdomen pelvis w con DATE OF EXAM: 07/12/2024 8:50 AM COMPARISON: 04/21/2022 , 04/07/2019, 07/16/2021 CLINICAL INDICATION: Female, 74 years old with history of RLQ pain; ABD PAIN TECHNIQUE: CT scan of the abdomen pelvis is performed with IV Contrast, patient injected with 75 mL of Isovue [address] DLP: 538 mGycm Automated exposure control for dose reduction was used. FINDINGS: LUNG BASES- bilateral lower lobe atelectasis or infiltrate correlate clinically. Coronary artery den se calcification. LIVER/GB- tiny hypodensities within the liver too small to characterize. There is mild intrahepatic biliary ductal dilation. Gallbladder is compressed by a large right upper quadrant cystic mass extra hepatic biliary ductal dilation also noted likely related to extrinsic compression but should be patsy elated clinically. Other etiologies not excluded. PANCREAS- No gross abnormality is seen. SPLEEN- No gross abnormality is seen. ADRENALS- No gross abnormality is seen. KIDNEYS/BLADDER-right renal tissue is not well seen. There is a large complicated cystic mass in the right upper quadrant possibly related to severe hydronephrosis and UPJ obstruction. A cystic neoplasm not excluded. Measures 11 cm Hypodensity in the left kidney compatible with Bosniak classification 1 simple cyst. There may be a bifid or duplicated left renal collecting system. BOWEL- small hiatal hernia. No evidence of bowel obstruction. LYMPH NODES- No greater than 1cm abdominal or pelvic lymph nodes are appreciated. OSSEOUS STRUCTURES- generalized osteopenia with numerous severe compression fractures throughout the visualized thoracic and lumbar spine. Grade 1 anterior listhesis L5-S1. Multilevel facet arthropathy . Postsurgical change of the left hip and arthropathy of the right hip. OTHER- aorta normal caliber with mild/moderate atherosclerotic change. Bladder is limited in assessm ent due to decompression. IMPRESSION: 1. Large cystic mass in the right upper quadrant. Possibly related to severe right-sided UPJ obstruct ion and hydronephrosis. This is an area of previous atrophic right kidney by prior multiple CT scans. Ureter is not seen on delayed imaging and there is little to no renal tissue identified, therefore, cystic mass in the differential diagnosis. 2. Cystic mass or severe hydronephrosis right upper quadrant does result in mild compression of the g allbladder with mild intrahepatic and extrahepatic biliary ductal dilation. [facility], , 07/12/2024 9:21 AM
[2024-07-12] MEDS: HYDROmorphone 1 MG/ML 1 ML SYRINGE IVP STA (09:51)
[2024-07-12] MEDS: POTASSIUM CHLORIDE 20 MEQ in WATER FOR INJECTION 1 100ML.BAG IVPB STA (10:04)
[2024-07-12] MEDS: cefTRIAXone IN SWFI 1,000 MG/10 ML SYRINGE IVP STA (10:38)
[2024-07-12] MEDS ORDERED: HYDROmorphone 1 MG/ML 1 ML SYRINGE IVP PRN (11:32)
[2024-07-12] MEDS ORDERED: NALOXONE 0.4 MG/ML 1 ML VIAL IV PRN (11:32)
[2024-07-12] MEDS ORDERED: ALPRAZolam 0.25 MG TAB PO PRN (11:33)
[2024-07-12] MEDS ORDERED: traZODone HCL 50 MG TAB PO PRN (11:33)
[2024-07-12] MEDS: SODIUM CHLORIDE 0.9% 1,000 ML IV SCH (11:51)
[2024-07-12] MEDS: METOCLOPRAMIDE 5 MG/ML 2 ML VIAL IVP STA (11:51)
[2024-07-12] MEDS: oxyCODONE-APAP 7.5-325MG 1 EACH TAB PO STA (11:57)
[2024-07-12] MEDS ORDERED: Potassium Replacement Protocol 1 EACH MISC MISCELLANE PRN (14:48)
[2024-07-12] MEDS: KETOROLAC 15 MG/ML 1 ML VIAL IVP PRN (14:53)
[2024-07-12] MEDS ORDERED: MAGNESIUM SULFATE-D5W PMX 1 GM in DEXTROSE/WATER 1 100ML.BAG IVPB SCH (15:00)
--- NOTE | 2024-07-12 15:33 | P.GSCN ---
History of Present Illness Consult date: 07/12/24 History of present illness: 74-year-old female who came in the emergency room today with a several day history of right flank pain. She is evaluated and found to have a very hydronephrotic right kidney. Because of the persistent pain she is been admitted to the hospital and we are asked see the patient. The patient has an atrophic right kidney notedfrom a computed tomography scan in 2020 It is unclear whether she was aware of this.. Computed tomography scan done most recently identifies a very large hydronephrotic upper quadrant mass consistent started nonfunc tioning hydronephrotic kidney. Her creatinine is normal. The white count is 9.9. Her potassium was low 2.6. No other abnormalities are obviously seen on computed tomography scan. She is afebrile.she denies trauma. She denies previous urinary infections or hematuria. There is no previous urologic evaluation. She has been afebrile. Her health is been well other than hip surgery in the summer. She has been active and moving around without problems. The computed tomography scan, reviewed by me, shows a large multiloculated fluid collection consistent with a UPJ obstruction. In looking at the left kidney there appears to be a very mild attempt at a UPJ obstruction there. Past Medical History Past Medical History: No Reported History History of Any Multi-Drug Resistant Organisms: None Reported Past Surgical History: Orthopedic Surgery Additional Past Surgical History / Comment(s): left hip surgery 04/22/24 Past Psychological History: No Psychological Hx Reported Smoking Status: Former smoker Past Alcohol Use History: Occasional Past Drug Use History: None Reported Medications and Allergies Home Medications Medication Instructions Recorded Confirmed Type Zolpidem [Ambien] 10 mg PO HS 05/03/15 07/12/24 History ALPRAZolam [Xanax] 0.25 mg PO BID PRN 07/12/24 07/12/24 History Alendronate Sodium [Fosamax] 70 mg PO SWEENEY 07/12/24 07/12/24 History Ergocalciferol (Vitamin D2) 1,250 mcg PO Q14D 07/12/24 07/12/24 History [Drisdol (50,000 Iu)] Ibuprofen [Motrin] 600 mg PO TID PRN 07/12/24 07/12/24 History traZODone HCL [Desyrel] 50 - 100 mg PO HS PRN 07/12/24 07/12/24 History Allergies Allergy/AdvReac Type Severity Reaction Status Date / Time No Known Allergies Allergy Verified 07/12/24 09:41 Surgical - Exam Vital Signs Pulse Resp BP Pulse Ox 101 H 20 146/70 93 L 07/12/24 07:20 07/12/24 07:20 07/12/24 07:20 07/12/24 07:20 - General well developed, well nourished, no distress - Eyes normal ocular movement, no icteric - ENT no hearing loss, no congestion - Neck no masses, trachea midline - Respiratory normal respiratory effort, clear to auscultation - Abdomen Abdomen: soft, non tender, no guarding, no rigid, no rebound - Integumentary no rash, no abnormal pigmentation - Neurologic no disoriented, no combative - Psychiatric oriented to time, oriented to person, oriented to place, speech is normal, memory intact Results - Labs 07/12/24 07:37 07/12/24 07:37 Abnormal Lab Results - Last 24 Hours (Table) 07/12/24 07/12/24 07/12/24 Range/Units 07:37 07:37 07:37 RBC 3.67 L (3.80-5.40) m/uL MCV 101.8 H (80.0-100.0) fL Neutrophils # 8.3 H (1.3-7.7) k/uL Lymphocytes # 0.7 L (1.0-4.8) k/uL INR 1.2 H (<1.2) APTT 20.3 L (22.0-30.0) sec Sodium 134 L (137-145) mmol/L Potassium 2.6 L* (3.5-5.1) mmol/L Creatinine 0.44 L (0.52-1.04) mg/dL Glucose 236 H (74-99) mg/dL Calcium 8.3 L (8.4-10.2) mg/dL Magnesium (1.6-2.3) mg/dL AST 50 H (14-36) U/L ALT 62 H (4-34) U/L Urine Protein (Negative) Urine Nitrite (Negative) Ur Leukocyte Esterase (Negative) Urine WBC (0-5) /hpf Urine Bacteria (None) /hpf Urine Mucus (None) /hpf 07/12/24 07/12/24 Range/Units 07:37 07:37 RBC (3.80-5.40) m/uL MCV (80.0-100.0) fL Neutrophils # (1.3-7.7) k/uL Lymphocytes # (1.0-4.8) k/uL INR (<1.2) APTT (22.0-30.0) sec Sodium (137-145) mmol/L Potassium (3.5-5.1) mmol/L Creatinine (0.52-1.04) mg/dL Glucose (74-99) mg/dL Calcium (8.4-10.2) mg/dL Magnesium 1.2 L (1.6-2.3) mg/dL AST (14-36) U/L ALT (4-34) U/L Urine Protein 1+ H (Negative) Urine Nitrite Positive H (Negative) Ur Leukocyte Esterase Small H (Negative) Urine WBC 20 H (0-5) /hpf Urine Bacteria Occasional H (None) /hpf Urine Mucus Rare H (None) /hpf Diabetes panel 07/12/24 Range/Units 07:37 Sodium 134 L (137-145) mmol/L Potassium 2.6 L* (3.5-5.1) mmol/L Chloride 99 (98-107) mmol/L Carbon Dioxide 22 (22-30) mmol/L BUN 14 (7-17) mg/dL Creatinine 0.44 L (0.52-1.04) mg/dL Glucose 236 H (74-99) mg/dL Calcium 8.3 L (8.4-10.2) mg/dL AST 50 H (14-36) U/L ALT 62 H (4-34) U/L Alkaline Phosphatase 81 (38-126) U/L Total Protein 6.8 (6.3-8.2) g/dL Albumin 3.5 (3.5-5.0) g/dL Calcium panel 07/12/24 07/12/24 Range/Units 07:37 07:37 Calcium 8.3 L (8.4-10.2) mg/dL Phosphorus 3.0 (2.5-4.5) mg/dL Albumin 3.5 (3.5-5.0) g/dL Pituitary panel 07/12/24 Range/Units 07:37 Sodium 134 L (137-145) mmol/L Potassium 2.6 L* (3.5-5.1) mmol/L Chloride 99 (98-107) mmol/L Carbon Dioxide 22 (22-30) mmol/L BUN 14 (7-17) mg/dL Creatinine 0.44 L (0.52-1.04) mg/dL Glucose 236 H (74-99) mg/dL Calcium 8.3 L (8.4-10.2) mg/dL Adrenal panel 07/12/24 Range/Units 07:37 Sodium 134 L (137-145) mmol/L Potassium 2.6 L* (3.5-5.1) mmol/L Chloride 99 (98-107) mmol/L Carbon Dioxide 22 (22-30) mmol/L BUN 14 (7-17) mg/dL Creatinine 0.44 L (0.52-1.04) mg/dL Glucose 236 H (74-99) mg/dL Calcium 8.3 L (8.4-10.2) mg/dL Total Bilirubin 1.0 (0.2-1.3) mg/dL AST 50 H (14-36) U/L ALT 62 H (4-34) U/L Alkaline Phosphatase 81 (38-126) U/L Total Protein 6.8 (6.3-8.2) g/dL Albumin 3.5 (3.5-5.0) g/dL - Imaging CT scan - abdomen: report reviewed, image reviewed CT scan - pelvis: report reviewed, image reviewed Assessment and Plan Assessment: impression: Right flank pain. 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 History of an atretic nonfunctioning right kidney based on computed tomography scan of 2022. Electrolyte abnormalities. Recommendations: Upon reviewing the CAT scan I suspect the kidney was producing a small amount of urine and slowly developed a hydronephrotic, cystic-appearing kidney. Computed tomography scan done recently does not show any evidence of parenchyma whatsoever. The likelihood of this being a cystic carcinoma in the kidneys unlikely. Given that she has not appearance of a mild UPJ obstruction on the left this would probably explain what is gone on on the right given that UPJ obstruction is frequently bilateral. Once her electrolytes have been corrected then I will discuss with the patient and her treatment options for this problem. Time with Patient: Greater than 30
[2024-07-12] MEDS: POTASSIUM CHLORIDE ER 20 MEQ TAB.ER PO ONE (16:55)
[2024-07-12] MEDS: POTASSIUM CHLORIDE 10 MEQ in WATER FOR INJECTION 1 100ML.BAG IVPB SCH (17:17)
[2024-07-12] MEDS ORDERED: HYDROmorphone 2 MG/ML 1 ML SYRINGE IVP PRN (18:00)
[2024-07-12] MEDS: ONDANSETRON 4 MG/2 ML VIAL IVP PRN (18:31)
[2024-07-12] MEDS: HYDROcodone/APAP 5-325MG 1 EACH TAB PO PRN (18:31)
[2024-07-12] MEDS: ZOLPIDEM 5 MG TAB PO SCH (19:33)
[2024-07-12] MEDS: POTASSIUM CHLORIDE ER 20 MEQ TAB.ER PO SCH (20:32)
--- NOTE | 2024-07-12 22:44 | P.HPIM ---
History of Present Illness H&P Date: 07/12/24 Chief Complaint: Abdominal pain Patient is a 74-year-old female with a known history of right renal cyst presents to ER with complaints of abdominal pain. Patient states that she has been abdominal pain since last night mainly in the right side and flank pain. Occasional nausea. No episodes of vomiting. Patient also felt warm but not any fevers. Denied any diarrhea. No cough or sputum production. No chest pain or shortness of breath. Denied any dysuria or hematuria. Denied any increased frequency. CT of the abdomen pelvis showed large cystic mass in the right upper quadrant. Possibly related to severe right-sided UPJ obstruction and hydronephrosis. This is an area of previous atrophic right kidney by prior multiple CT scans. Ureter is not seen on delayed imaging and there is little to no renal tissue identified. Therefore cystic mass in the differential diagnosis. Cystic mass with severe hydronephrosis right upper quadrant because result in mild c ompression of the gallbladder with mild intrahepatic and extrahepatic biliary ductal dilatation. Laboratory data showed WBC 9.9 hemoglobin 12.9 and platelets 314 sodium 134 potassium 2.6 chloride 99 bicarb is 22, BUN 14 and creatinine 0.44 and blood sugar is 236 and magnesium 1.2 liver enzymes showed AST 50 ALT 62 and alk phos 81 urinalysis showed 1+ protein nitrite positive small leukocyte esterase WBCs 20 Review of Systems Constitutional: Patient complains of subjective fevers. No chills. No generalized weakness or weight loss. Abdomen: Patient does complain of right-sided abdominal pain and flank pain. No diarrhea. No nausea or vomiting. Cardiovascular: Patient denies any chest pain or short of breath no palpitations. Respiratory: patient denied any cough or sputum production. No shortness of breath Neurologic: Patient denied any numbness or tingling. no headache. Musculoskeletal: Patient denies any complaints of joint swelling or deformity. Skin: Negative Psychiatric: Negative Endocrine: No heat or cold intolerance. No recent weight gain. Genitourinary: No dysuria or hematuria. All other 14 point ROS negative except the above Past Medical History Past Medical History: No Reported History History of Any Multi-Drug Resistant Organisms: None Reported Past Surgical History: Orthopedic Surgery Additional Past Surgical History / Comment(s): left hip surgery 04/22/24 Past Psychological History: No Psychological Hx Reported Smoking Status: Former smoker Past Alcohol Use History: Occasional Past Drug Use History: None Reported Medications and Allergies Home Medications Medication Instructions Recorded Confirmed Type Zolpidem [Ambien] 10 mg PO HS 05/03/15 07/12/24 History ALPRAZolam [Xanax] 0.25 mg PO BID PRN 07/12/24 07/12/24 History Alendronate Sodium [Fosamax] 70 mg PO SWEENEY 07/12/24 07/12/24 History Ergocalciferol (Vitamin D2) 1,250 mcg PO Q14D 07/12/24 07/12/24 History [Drisdol (50,000 Iu)] Ibuprofen [Motrin] 600 mg PO TID PRN 07/12/24 07/12/24 History traZODone HCL [Desyrel] 50 - 100 mg PO HS PRN 07/12/24 07/12/24 History Allergies Allergy/AdvReac Type Severity Reaction Status Date / Time No Known Allergies Allergy Verified 07/12/24 09:41 Physical Exam Vitals: Vital Signs Temp Pulse Pulse Resp BP BP Pulse Ox 07/12/24 13:05 96.7 F L 85 18 158/69 98 07/12/24 11:52 74 20 123/77 95 07/12/24 10:25 81 20 129/69 95 07/12/24 09:00 105 H 20 142/78 97 07/12/24 07:20 101 H 20 146/70 93 L Intake and Output 07/11/24 07/12/24 07/12/24 22:59 06:59 14:59 Other: Weight 39.916 kg PHYSICAL EXAMINATION: Patient is lying in the bed comfortably, no acute distress, awake alert and oriented.. HEENT: Normocephalic. Neck is supple. Pupils reactive. Nostrils clear. Oral cavity is moist. Neck reveals no JVD, carotid bruits, or thyromegaly. CHEST EXAMINATION: Trachea is central. Symmetrical expansion. Lung busby clear to auscultation and percussion. CARDIAC: Normal S1, S2 with no gallops. No murmurs ABDOMEN: Soft. Bowel sounds normal. No organomegaly. No abdominal bruits. Extremities: reveal no edema. No clubbing or cyanosis Neurologically awake, alert, oriented x3 with well-coordinated movements. No focal deficits noted Skin: No rash or skin lesions. Psychiatric: Coperative. Nonsuicidal Musculoskeletal: No joint swelling or deformity. Normal range of motion. Results CBC & Chem 7: 07/13/24 05:16 07/13/24 05:16 Labs: Abnormal Lab Results - Last 24 Hours (Table) 07/12/24 07/12/24 07/12/24 Range/Units 07:37 07:37 07:37 RBC 3.67 L (3.80-5.40) m/uL MCV 101.8 H (80.0-100.0) fL Neutrophils # 8.3 H (1.3-7.7) k/uL Lymphocytes # 0.7 L (1.0-4.8) k/uL INR 1.2 H (<1.2) APTT 20.3 L (22.0-30.0) sec Sodium 134 L (137-145) mmol/L Potassium 2.6 L* (3.5-5.1) mmol/L Creatinine 0.44 L (0.52-1.04) mg/dL Glucose 236 H (74-99) mg/dL Calcium 8.3 L (8.4-10.2) mg/dL Magnesium (1.6-2.3) mg/dL AST 50 H (14-36) U/L ALT 62 H (4-34) U/L Urine Protein (Negative) Urine Nitrite (Negative) Ur Leukocyte Esterase (Negative) Urine WBC (0-5) /hpf Urine Bacteria (None) /hpf Urine Mucus (None) /hpf 07/12/24 07/12/24 Range/Units 07:37 07:37 RBC (3.80-5.40) m/uL MCV (80.0-100.0) fL Neutrophils # (1.3-7.7) k/uL Lymphocytes # (1.0-4.8) k/uL INR (<1.2) APTT (22.0-30.0) sec Sodium (137-145) mmol/L Potassium (3.5-5.1) mmol/L Creatinine (0.52-1.04) mg/dL Glucose (74-99) mg/dL Calcium (8.4-10.2) mg/dL Magnesium 1.2 L (1.6-2.3) mg/dL AST (14-36) U/L ALT (4-34) U/L Urine Protein 1+ H (Negative) Urine Nitrite Positive H (Negative) Ur Leukocyte Esterase Small H (Negative) Urine WBC 20 H (0-5) /hpf Urine Bacteria Occasional H (None) /hpf Urine Mucus Rare H (None) /hpf Thrombosis Risk Factor Assmnt - DVT/VTE Prophylaxis DVT/VTE Prophylaxis: Pharmacologic Prophylaxis ordered - Choose All That Apply Any of the Below Risk Factors Present?: Yes Other Risk Factors: Yes Each Risk Factor Represents 2 Points: Age 61-74 years Other congenital or acquired thrombophilia - If yes, enter type in comment: No Thrombosis Risk Factor Assessment Total Risk Factor Score: 2 Thrombosis Risk Factor Assessment Level: Low Risk Assessment and Plan Assessment: Acute urinary tract infection Large cystic mass in the right upper quadrant with severe right-sided UPJ obstruction and hydronephrosis.This is an area of right atrophic right kidney as per previous multiple CT scans. Severe hypokalemia and hypomagnesemia GI DVT prophylaxis Plan: Patient will be continued on IV hydration. Replace potassium magnesium repeat levels. Continue with ceftriaxone and urology consult. Follow-up urine culture report. Prognosis guarded at this time. Time with Patient: Greater than 30
[2024-07-13] MEDS: PANTOPRAZOLE 40 MG/10 ML VIAL IV SCH (07:46)
[2024-07-13] MEDS: IBUPROFEN 600 MG TAB PO PRN (07:48)
[2024-07-13 08:27] LABS: Basophils # (A) 0.03 X 10*3/uL (0.00-0.10); Basophils % (A) 0.4 %; Eosinophils # (A) 0 X 10*3/uL (0.04-0.35); Eosinophils % (A) 0 %; HCT 27.4 % (37.2-46.3); HGB 9.5 g/dL (12.0-15.0); Lymphocytes # (A) 0.99 X 10*3/uL (0.90-5.00); Lymphocytes % (A) 12.7 %; MCH 35.4 pg (27.0-32.0); MCHC 34.7 g/dL (32.0-37.0); MCV 102.2 FL (80.0-97.0); Mean Platelet Volume 10.1 FL (9.5-12.2); Monocytes # (A) 1.26 X 10*3/uL (0.20-1.00); Monocytes % (A) 16.2 %; NRBC Per 100 WBC 0 X 10*3/uL (0.00-0.01); Neutrophils # (A) 5.46 X 10*3/uL (1.80-7.70); Neutrophils % (A) 70.2 %; Platelet Count 241 X 10*3/uL (140-440); RBC 2.68 X 10*6/uL (4.10-5.20); RDW 12.3 % (11.5-14.5); WBC 7.78 X 10*3/uL (4.50-10.00)
[2024-07-13 08:52] LABS: Blood Urea Nitrogen 9.7 mg/dL (9.0-27.0); Calcium 7.8 mg/dL (8.7-10.3); Carbon Dioxide 17.5 mmol/L (21.6-31.8); Chloride 106 mmol/L (96-109); Glucose 187 mg/dL (70-110); Potassium 3.3 mmol/L (3.5-5.5); Sodium 135 mmol/L (135-145)
[2024-07-13] MEDS ORDERED: Potassium Replacement Protocol 1 EACH MISC MISCELLANE PRN (10:01)
--- NOTE | 2024-07-13 10:50 | P.PN ---
Subjective Progress Note Date: 07/13/24 the patient is in the hospital with rt flank and uq pain.. SHe has a large cystic mass on ct scan. 3 years ago it was a smaller atrophic kidney.. She had a temp of 100 last night She feels better today Her potassium is up to 3.7. She may have a uti and is on rocephin. Objective - Vital Signs Vital signs: Vital Signs Temp 98.5 F 07/13/24 07:06 Pulse 92 07/13/24 07:06 Resp 16 07/13/24 07:06 BP 144/66 07/13/24 07:06 Pulse Ox 97 07/13/24 07:06 FiO2 Intake & Output 07/12/24 07/13/24 07/13/24 18:59 06:59 18:59 Intake Total 1140 236 Output Total 100 200 Balance -100 940 236 Weight 39.916 kg Intake: Intake, IV Titration 900 Amount Sodium Chloride 0.9% 1, 900 000 ml @ 75 mls/hr IV . [id number] [facility] Rx#:[id number] Oral 240 236 Output: Urine 100 200 Other: # Voids 1 - Labs CBC & Chem 7: 07/13/24 05:16 07/13/24 05:16 Labs: Abnormal Lab Results - Last 24 Hours (Table) 07/12/24 07/12/24 07/13/24 Range/Units 14:32 19:44 05:16 RBC 2.68 L (4.10-5.20) X 10*6/uL Hgb 9.5 L (12.0-15.0) g/dL Hct 27.4 L (37.2-46.3) % MCV 102.2 H (80.0-97.0) FL MCH 35.4 H (27.0-32.0) pg Monocytes # 1.26 H (0.20-1.00) X 10*3/uL Eosinophils # 0 L (0.04-0.35) X 10*3/uL Potassium 2.5 L* 3.0 L (3.5-5.1) mmol/L Carbon Dioxide (21.6-31.8) mmol/L Creatinine (0.6-1.5) mg/dL Glucose (70-110) mg/dL Calcium (8.7-10.3) mg/dL 07/13/24 Range/Units 05:16 RBC (4.10-5.20) X 10*6/uL Hgb (12.0-15.0) g/dL Hct (37.2-46.3) % MCV (80.0-97.0) FL MCH (27.0-32.0) pg Monocytes # (0.20-1.00) X 10*3/uL Eosinophils # (0.04-0.35) X 10*3/uL Potassium 3.3 L (3.5-5.1) mmol/L Carbon Dioxide 17.5 L (21.6-31.8) mmol/L Creatinine 0.5 L (0.6-1.5) mg/dL Glucose 187 H (70-110) mg/dL Calcium 7.8 L (8.7-10.3) mg/dL Assessment and Plan Assessment: The etiology of the mass is probably a upj obstruction. She probably needs a cysto with retrograde but I dont want to take the risk of infecting the fluid so therefore will need ab to clear the urine before this is done. this probably could be achieved as an op. I will follow
[2024-07-13] MEDS: POTASSIUM CHLORIDE ER 20 MEQ TAB.ER PO SCH ×2 (11:07→21:22)
[2024-07-13] MEDS: ACETAMINOPHEN TAB 325 MG TAB PO PRN (11:10)
[2024-07-13] MEDS ORDERED: Magnesium Replacement Protocol 1 EACH MISC MISCELLANE PRN (15:29)
--- NOTE | 2024-07-13 15:34 | P.PN ---
Subjective Progress Note Date: 07/13/24 CT of the abdomen pelvis showed large cystic mass in the right upper quadrant. Possibly related to severe right-sided UPJ obstruction and hydronephrosis. This is an area of previous atrophic right kidney by prior multiple CT scans. Ureter is not seen on delayed imaging and there is little to no renal tissue identified. Therefore cystic mass in the differential diagnosis. Cystic mass with severe hydronephrosis right upper quadrant because result in mild compression of the gallbladder with mild intrahepatic and extrahepatic biliary ductal dilatation. 07/13/2024 Patient is seen in follow-up today with urology following. Patient is continued on IV antibiotics in the form of ceftriaxone and preliminary culture showing gram-negative bacilli. Patient will continue on antibiotic therapy and discuss possible outpatient intervention with urology in the outpatient setting. Patient is afebrile with no reports of chest pain. Patient does report some shortness of breath with exertion and was given a significant mount of IV fluids. Will obtain a chest x-ray and also encourage incentive spirometer use at least 10 times every hour while awake. Patient is afebrile and reports to feeling much improved patient is eating a little with no reported nausea or vomiting. Encouraged increase activity as tolerated Review of systems: Constitutional: No reports of fatigue, fever, or chills Cardiovascular: No reports of chest pain or palpitations Respiratory: reports of intermittent shortness of breath with exertion GI: No reports of nausea, vomiting, or diarrhea : No reports of dysuria or retention Neurovascular: reports of generalized weakness All medications have been reviewed PHYSICAL EXAMINATION: Patient is sitting up in the bed comfortably, no acute distress, awake alert and oriented.. Elderly appearing, thin built HEENT: Normocephalic. Neck is supple. Pupils reactive. Nostrils clear. Oral cavity is moist. Neck reveals no JVD, carotid bruits, or thyromegaly. CHEST EXAMINATION: Diminished breath sounds bilaterally otherwise trachea is central. Symmetrical expansion. Lung busby clear to auscultation and percussion. CARDIAC: Normal S1, S2 with no gallops. No murmurs ABDOMEN: Soft. Bowel sounds normal. No organomegaly. No abdominal bruits. Extremities: reveal no edema. No clubbing or cyanosis Neurologically awake, alert, oriented x3 with well-coordinated movements. No focal deficits noted Skin: No rash or skin lesions. Psychiatric: Cooperative. Non-suicidal Musculoskeletal: No joint swelling or deformity. Normal range of motion. Assessment: Acute urinary tract infection, present on admission. Preliminary culture showing gram-negative bacilli Large cystic mass in the right upper quadrant with severe right-sided UPJ obstruction and hydronephrosis.This is an area of right atrophic right kidney as per previous multiple CT scans. Severe hypokalemia and hypomagnesemia, being replaced and improving GI DVT prophylaxis No code Plan: Patient will be continued on IV hydration. Patient was reporting some shortness of breath and did receive a bolus of 1 L normal saline and also maintained on 75 mL/h. Will obtain a chest x-ray and also initiate incentive spirometer use at least 10 times every hour while awake Continue to replace potassium and magnesium per protocol. Potassium mildly low and magnesium and will replace. Repeat labs ordered for a.m. continue with ceftriaxone for now while awaiting finalized cultures. urology following with no immediate plans for surgical intervention at this time recommending IV antibiotic therapy and treatment of the urinary tract infection and to discuss the needs for any intervention. Possible discharge planning in the next 24 to 48 hours once cultures have finalized The impression and plan of care has been dictated by Melody Navarro, Nurse Practitioner as directed. Dr. Jen MD I have performed a history and examination and MDM of this patient, discussed the same with the dictator, and agree with the dictator's assessment and plan as written ,documented as a scribe. Based on total visit time, I have performed more than 50% of the visit. Objective - Vital Signs Vital signs: Vital Signs Temp 98.5 F 07/13/24 07:06 Pulse 92 07/13/24 07:06 Resp 16 07/13/24 07:06 BP 144/66 07/13/24 07:06 Pulse Ox 97 07/13/24 07:06 FiO2 Intake & Output 07/12/24 07/13/24 07/13/24 18:59 06:59 18:59 Intake Total 1140 236 Output Total 100 200 Balance -100 940 236 Weight 39.916 kg Intake: Intake, IV Titration 900 Amount Sodium Chloride 0.9% 1, 900 000 ml @ 75 mls/hr IV . [id number] [facility] Rx#:[id number] Oral 240 236 Output: Urine 100 200 Other: # Voids 1 - Labs CBC & Chem 7: 07/13/24 05:16 07/13/24 05:16 Labs: Abnormal Lab Results - Last 24 Hours (Table) 07/12/24 07/12/24 07/13/24 Range/Units 14:32 19:44 05:16 RBC 2.68 L (4.10-5.20) X 10*6/uL Hgb 9.5 L (12.0-15.0) g/dL Hct 27.4 L (37.2-46.3) % MCV 102.2 H (80.0-97.0) FL MCH 35.4 H (27.0-32.0) pg Monocytes # 1.26 H (0.20-1.00) X 10*3/uL Eosinophils # 0 L (0.04-0.35) X 10*3/uL Potassium 2.5 L* 3.0 L (3.5-5.1) mmol/L Carbon Dioxide (21.6-31.8) mmol/L Creatinine (0.6-1.5) mg/dL Glucose (70-110) mg/dL Calcium (8.7-10.3) mg/dL 07/13/24 Range/Units 05:16 RBC (4.10-5.20) X 10*6/uL Hgb (12.0-15.0) g/dL Hct (37.2-46.3) % MCV (80.0-97.0) FL MCH (27.0-32.0) pg Monocytes # (0.20-1.00) X 10*3/uL Eosinophils # (0.04-0.35) X 10*3/uL Potassium 3.3 L (3.5-5.1) mmol/L Carbon Dioxide 17.5 L (21.6-31.8) mmol/L Creatinine 0.5 L (0.6-1.5) mg/dL Glucose 187 H (70-110) mg/dL Calcium 7.8 L (8.7-10.3) mg/dL
[2024-07-13] MEDS: MAGNESIUM SULFATE-D5W PMX 1 GM in DEXTROSE/WATER 1 100ML.BAG IVPB ONE (16:01)
--- NOTE | 2024-07-13 16:07 | XR ---
EXAMINATION TYPE: XR chest 1V portable DATE OF EXAM: 07/13/2024 3:58 PM COMPARISON: Chest radiographs from 04/22/2024 CLINICAL INDICATION: Female, 74 years old with history of shortness of breath; [facility] TECHNIQUE: XR chest 1V portable Frontal view of the chest. FINDINGS: Lungs/Pleura: There is increased lucency of the lungs. No evidence of pneumothorax, pleural effusion or focal consolidation. Pulmonary vascularity: Unremarkable. Heart/mediastinum: Cardiomediastinal silhouette is unremarkable. Musculoskeletal: No acute osseous pathology. Other findings: None Lines/Tubes: IMPRESSION: 1. Low lung volumes, No acute cardiopulmonary disease process. 2. COPD changes. [facility], , 07/13/2024 4:05 PM
[2024-07-14 07:44] VITALS: RESP 16
[2024-07-14 08:33] LABS: HCT 32.1 % (37.2-46.3); HGB 10.7 g/dL (12.0-15.0); MCHC 33.3 g/dL (32.0-37.0); MCV 104.9 FL (80.0-97.0); NRBC Per 100 WBC 0 X 10*3/uL (0.00-0.01); Platelet Count 276 X 10*3/uL (140-440); RBC 3.06 X 10*6/uL (4.10-5.20); RDW 12.4 % (11.5-14.5); WBC 9.35 X 10*3/uL (4.50-10.00)
[2024-07-14 08:44] LABS: Blood Urea Nitrogen 7.5 mg/dL (9.0-27.0); Calcium 8.5 mg/dL (8.7-10.3); Carbon Dioxide 16.7 mmol/L (21.6-31.8); Chloride 106 mmol/L (96-109); Glucose 175 mg/dL (70-110); Magnesium 1.4 mg/dL (1.5-2.4); Sodium 136 mmol/L (135-145)
[2024-07-14 09:45] LABS: Basophils # (A) 0.07 X 10*3/uL (0.00-0.10); Basophils % (A) 0.7 %; Crenated RBC 2+; Eosinophils # (A) 0.01 X 10*3/uL (0.04-0.35); Eosinophils % (A) 0.1 %; Lymphocytes # (A) 0.72 X 10*3/uL (0.90-5.00); Lymphocytes % (A) 7.7 %; Monocytes # (A) 1.16 X 10*3/uL (0.20-1.00); Monocytes % (A) 12.4 %; Neutrophils # (A) 7.33 X 10*3/uL (1.80-7.70); Neutrophils % (A) 78.5 %
[2024-07-14] MEDS ORDERED: Magnesium Replacement Protocol 1 EACH MISC MISCELLANE PRN (10:41)
[2024-07-14] MEDS: MAGNESIUM SULFATE-D5W PMX 1 GM in DEXTROSE/WATER 1 100ML.BAG IVPB ONE (11:26)
--- NOTE | 2024-07-14 11:46 | P.PN ---
Progress Note - Text Progress Note Date: 07/14/24 the patient is in the hospital with right flank pain. She has a large cystic mass probable a blown out UPJ obstruction on the right. Will renal parenchyma was identified. She may have a urine infection. From urologic standpoint I would prefer that she be treated with antibiotics for a week or so prior to any urologic instrumentation. She probably needs a cystoscopy and retrograde pyelogram me for definitive management of the cystic mass, probable UPJ obstruction, right, is undertaken
[2024-07-14 13:49] VITALS: BP 133/74; PULSE 99; TEMP 97.9
[2024-07-18] MEDS ORDERED: NON FORMULARY DRUG (Alendronate Sodium [Fosamax] 70 MG Tablet) PO SCH (11:33)
--- NOTE | 2024-07-19 09:40 | P.DS ---
Providers Date of admission: 07/12/24 11:27 Expected date of discharge: 07/14/24 Attending physician: Lela Li Consults: 07/12/24 11:32 Consult Physician Urgent Consulting Provider: Des Luna Consult Reason/Comments: Right renal mass, pain not controlled Do you want consulting provider notified?: Already Contacted Primary care physician: Popeye Rodriguez Hospital Course: Final diagnosis Acute urinary tract infection, present on admission. Culture finalized with E. coli with sensitivities Large cystic mass in the right upper quadrant with severe right-sided UPJ o bstruction and hydronephrosis.This is an area of right atrophic right kidney as per previous multiple CT scans. Severe hypokalemia and hypomagnesemia, improving GI DVT prophylaxis No code Discharge disposition Patient is being discharged in a stable condition with guarded prognosis to home. Patient will follow-up with Dr. Rodriguez in the outpatient setting upon discharge. Patient is to continue with current medications and outpatient follow-up with urology as scheduled. Total time taken is greater than 35 minutes. Hospital course This is a 74 year-old female who was recently admitted with acute urinary tract infection along with a large cystic max in the right upper quadrant with severe UPJ obstruction and hydronephrosis. Patient was evaluated by urology maintained on antibiotics being treated for urinary tract infection. Patient will need outpatient follow-up with urology in the outpatient setting once infection is cleared. Urine culture finalized with E. coli with sensitivities and will continue on Ceftin and outpatient follow-up with urology. Patient reports to feeling much improved and would like to go home. Patient also instructed to follow-up with primary care provider this week. Please refer to other consultation notes for further HPI. Currently no reports of chest pain, shortness of breath, or palpitations. Patient is afebrile. No reports of nausea or vomiting and patient is tolerating diet. Patient will be discharged home today. Guarded prognosis Physical exam: Gen: This is a 74-year-old female who is awake, alert and oriented x 3, well-developed, thin built, elderly appearing HEENT: Head is atraumatic, normocephalic. Pupils equal, round. Sclerae is anicteric. NECK: Supple. No JVD. No lymphadenopathy. No thyromegaly. LUNGS: Diminished breath sounds bilaterally otherwise clear to auscultation. No wheezes or rhonchi. No intercostal retractions. HEART: Regular rate and rhythm. No murmur. ABDOMEN: Soft. Thin. Bowel sounds are present. No masses. No tenderness. EXTREMITIES: No pedal edema. No calf tenderness. NEUROLOGICAL: Patient is awake, alert and oriented x3. Cranial nerves 2 through 12 are grossly intact. Please refer to medication reconciliation sheet for a list of medications. The impression and plan of care has been dictated by Melody Navarro, Nurse Practitioner as directed. Dr. Jen MD I have performed a history and examination and MDM of this patient, discussed the same with the dictator, and agree with the dictator's assessment and plan as written ,documented as a scribe. Based on total visit time, I have performed more than 50% of the visit. Patient Condition at Discharge: Stable Plan - Discharge Summary New Discharge Prescriptions: New HYDROcodone/APAP 5-325MG [[place] 5-325] 1 each PO Q6H PRN #12 tab PRN Reason: Moderate Pain (Scale 4 To 6) Acetaminophen Tab [Tylenol] 650 mg PO Q6HR PRN tab PRN Reason: Mild Pain Or Fever > 100.5 cefuroxime axetiL [Ceftin] 500 mg PO BID 14 Days #28 tab Multivitamins, Thera [Multivitamin] 1 tab PO DAILY #30 tablet Continue Zolpidem [Ambien] 10 mg PO HS Ibuprofen [Motrin] 600 mg PO TID PRN PRN Reason: Pain Ergocalciferol (Vitamin D2) [Drisdol (50,000 Iu)] 1,250 mcg PO Q14D Alendronate Sodium [Fosamax] 70 mg PO SWEENEY traZODone HCL [Desyrel] 50 - 100 mg PO HS PRN PRN Reason: Insomnia ALPRAZolam [Xanax] 0.25 mg PO BID PRN PRN Reason: Anxiety Discharge Medication List Zolpidem [Ambien] 10 mg PO HS 05/03/15 [History] ALPRAZolam [Xanax] 0.25 mg PO BID PRN 07/12/24 [History] Alendronate Sodium [Fosamax] 70 mg PO SWEENEY 07/12/24 [History] Ergocalciferol (Vitamin D2) [Drisdol (50,000 Iu)] 1,250 mcg PO Q14D 07/12/24 [History] Ibuprofen [Motrin] 600 mg PO TID PRN 07/12/24 [History] traZODone HCL [Desyrel] 50 - 100 mg PO HS PRN 07/12/24 [History] Acetaminophen Tab [Tylenol] 650 mg PO Q6HR PRN tab 07/14/24 [Rx] HYDROcodone/APAP 5-325MG [[place] 5-325] 1 each PO Q6H PRN #12 tab 07/14/24 [Rx] Multivitamins, Thera [Multivitamin] 1 tab PO DAILY #30 tablet 07/14/24 [Rx] cefuroxime axetiL [Ceftin] 500 mg PO BID 14 Days #28 tab 07/14/24 [Rx] Follow up Appointment(s)/Referral(s): Popeye Rodriguez MD [Primary Care Provider] - 07/23/24 10:00 am (appointment with Allan MONROE) Des Luna MD [STAFF PHYSICIAN] - 1 Week (The office will call with a follow up appointment) Ambulatory/Diagnostic Orders: Basic Metabolic Panel [LAB.AMB] Time Frame: 3 Days, Location: None Selected Patient Instructions/Handouts: Hypokalemia (DC) Activity/Diet/Wound Care/Special Instructions: Activity limited until follow-up Follow-up with primary care provider on discharge Continue taking antibiotics for the next 2 weeks Follow-up with urology outpatient in 2 weeks Continue with multivitamin daily Recommend repeat labs in the next week to monitor electrolytes Continue using Colace 1-2 times daily while taking pain medications. Avoid if having loose stools Encourage fluids and rest monitor for any fever and if having any increasing symptoms or altered mentation, call 911 or local ER to be evaluated Contact urology and/or primary care provider if having difficulties with urination, pain or burning with urination or decreased urinary output Discharge Disposition: HOME SELF-CARE
[2024-07-24] MEDS ORDERED: ERGOCALCIFEROL 1,250 MCG (50,000 IU) CAPSULE PO SCH (09:00)
== END 2024-07-14 17:56 | disposition home or self-care (01) | DRG 690 ==
LOC: EC 07:18 → 5NMEDONC 11:27
PROVIDERS: ADMIT Internal Medicine; ATTEND Internal Medicine
DX: N13.6 Pyonephrosis (principal); K83.8 Other specified diseases of biliary tract; E87.6 Hypokalemia; E83.42 Hypomagnesemia; B96.20 Unspecified Escherichia coli [E. coli] as the cause of diseases classified elsewhere; N26.1 Atrophy of kidney (terminal); N28.1 Cyst of kidney, acquired; Z79.83 Long term (current) use of bisphosphonates; Z79.899 Other long term (current) drug therapy; Z87.891 Personal history of nicotine dependence
CPT/HCPCS: 36415; 71045; 74177; 80048; 80053; 81001; 82150; 83605; 83690; 83735; 84100; 84132; 85025; 85610; 85730; 87077; 87086; 87186; 93005; 96361; 96365; 96366; 96368; 96375; 96376; 99285

== ENCOUNTER 2024-07-28 08:41 | Day surgery (SDC) | payer MEDICARE ==
[2024-07-27 11:22] VITALS: BMI 19.0
--- NOTE | 2024-07-27 14:56 | P.GSHP ---
History of Present Illness H&P Date: 07/27/24 74 eyo female recently in the hospital with right flank pain. She was found to have severe right hydronephrosis with no parenchyma. The appearance is probably consistent with a upj obstruction. SHe will have a right retrograde pyelogram to make sure the ureter below the upj does not have any pathology - Constitutional Constitutional: Denies chills, Denies fever - EENT Eyes: denies blurred vision, denies pain Ears, nose, mouth and throat: Denies headache, Denies sore throat - Cardiovascular Cardiovascular: Denies chest pain, Denies shortness of breath - Respiratory Respiratory: Denies cough, Denies 7 - Gastrointestinal Gastrointestinal: Denies abdominal pain, Denies diarrhea, Denies nausea, Denies vomiting - Genitourinary (Female) Genitourinary: Denies dysuria, Denies hematuria - Genitourinary (Male) Genitourinary: Denies dysuria, Denies hematuria - Musculoskeletal Musculoskeletal: Denies myalgias - Integumentary Integumentary: Denies pruritus, Denies rash - Neurological Neurological: Denies numbness, Denies weakness - Psychiatric Psychiatric: Denies anxiety, Denies depression - Endocrine Endocrine: Denies fatigue, Denies weight change Past Medical History Past Medical History: Renal Disease Additional Past Medical History / Comment(s): hospitalized last week rt kidney not working and rt flank area , started 3 weeks ago had increased fatigue,no apetite,fx left hip Apr 2024 History of Any Multi-Drug Resistant Organisms: None Reported Past Surgical History: Orthopedic Surgery Additional Past Surgical History / Comment(s): ORIF left hip 04/22/24,bone spurs Past Anesthesia/Blood Transfusion Reactions: No Reported Reaction Additional Past Anesthesia/Blood Transfusion Reaction / Comment(s): no hx blood transfusions Smoking Status: Former smoker - Past Family History Mother Family Medical History: No Reported History Medications and Allergies Home Medications Medication Instructions Recorded Confirmed Type Zolpidem [Ambien] 10 mg PO HS 05/03/15 07/27/24 History ALPRAZolam [Xanax] 0.25 mg PO BID PRN 07/12/24 07/27/24 History Alendronate Sodium [Fosamax] 70 mg PO SWEENEY 07/12/24 07/27/24 History Ergocalciferol (Vitamin D2) 1,250 mcg PO Q14D 07/12/24 07/27/24 History [Drisdol (50,000 Iu)] Multivitamins, Thera [Multivitamin] 1 tab PO DAILY #30 tablet 07/14/24 07/27/24 Rx HYDROcodone/APAP 5-325MG [[place] 1 each PO Q6H PRN 07/27/24 07/27/24 History 5-325] Allergies Allergy/AdvReac Type Severity Reaction Status Date / Time No Known Allergies Allergy Verified 07/27/24 11:10 Surgical - Exam - General well developed, well nourished, no distress - Eyes normal ocular movement, no icteric - ENT no hearing loss, no congestion - Neck no masses, trachea midline - Respiratory normal respiratory effort, clear to auscultation - Abdomen Abdomen: soft, non tender, no guarding, no rigid, no rebound - Integumentary no rash, no abnormal pigmentation - Neurologic no disoriented, no combative - Psychiatric oriented to time, oriented to person, oriented to place, speech is normal, memory intact Results - Imaging CT scan - abdomen: report reviewed, image reviewed CT scan - pelvis: report reviewed, image reviewed Assessment and Plan Assessment: Impression: right hydronephrosis, probable burned out upj obstruction Plan: cysto with right retrograde to rule out distal ureteral pathology
[2024-07-28] MEDS ORDERED: HYDROmorphone 0.5 MG/0.5 ML SYRINGE IVP PRN (09:06)
[2024-07-28] MEDS ORDERED: LIDOCAINE 1% (10MG/ML) FOR IV START INTRADERMA PRN (09:06)
[2024-07-28] MEDS ORDERED: droPERidol 5 MG/2 ML VIAL IVP ONE (09:06)
[2024-07-28] MEDS: IV FLUID CONTINUATION 1,000 ML IV ONE (09:31)
--- NOTE | 2024-07-28 09:31 | XR ---
EXAMINATION TYPE: XR KUB DATE OF EXAM: 07/28/2024 9:06 AM COMPARISON: 07/28/2024 CLINICAL INDICATION: Female, 74 years old with history of N13.30 UNSPECIFIED HYDRONEPHROSIS; TECHNIQUE: One radiographic view of the abdomen was obtained. FINDINGS: The bowel gas pattern is nonspecific without dilated loops of small or large bowel. . Fecal material and gas are demonstrated throughout the colon and rectum. There is no evidence for organomegaly or pneumoperitoneum. The osseous structures are intact. No ab normal calcifications are present. Left hip fixation screw appears intact. Multilevel degeneration ch anges of the spine. IMPRESSION: Nonspecific bowel gas pattern without radiographic evidence for acute process. [facility], , 07/28/2024 9:28 AM
[2024-07-28] MEDS: DEXAMETHASONE SOD PHOSPHATE 4 MG/ML 1 ML VIAL IV ONE (09:48)
[2024-07-28] MEDS: LACTATED RINGERS 1,000 ML IV SCH (09:48)
[2024-07-28] MEDS: ONDANSETRON 4 MG/2 ML VIAL IVP ONE (09:48)
[2024-07-28] MEDS: IOPAMIDOL-370 100ML BTL MISCELLANE ONE ×2 (10:01→10:19)
[2024-07-28] MEDS ORDERED: fentaNYL (PF) 50 MCG/ML 2 ML AMP ONE (10:03)
[2024-07-28] MEDS ORDERED: LIDOCAINE 1% INJ 10MG/ML (20 ML MDV) ONE (10:03)
[2024-07-28] MEDS ORDERED: PROPOFOL 10 MG/ML 20 ML VIAL IV ONE (10:03)
[2024-07-28] MEDS: AMPICILLIN 1,000 MG in SODIUM CHLORIDE 0.9% 50 ML IVPB PRN (10:06)
[2024-07-28] MEDS: GENTAMICIN 60 MG in SODIUM CHLORIDE 0.9% 100 ML IVPB PRN (10:06)
[2024-07-28 10:59] VITALS: TEMP 97.2
--- NOTE | 2024-07-28 11:08 | P.OP ---
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 Procedure(s) Performed: cystoscopy, right retrograde pyelogram, right ureteroscopy Anesthesia: EDWARDA Surgeon: Des Luna Estimated Blood Loss (ml): 0 Pathology: none sent Condition: stable Disposition: PACU Indications for Procedure: the patient is 74. He was recently in the hospital with right flank pain. A computed tomography scan identified a large volume hydronephrosis consistent with a burn the UPJ. There is no functioning parenchyma. There is no obvious cause for the hydronephrosis. Previous computed tomography scan 3 years ago however showed a small right kidney without significant hydronephrosis.the left kidney shows a very mild UPJ obstruction. Comes for right retrograde pyelogram to further assess the ureter in its contribution to the right hydronephrosis Description of Procedure: patient brought to the operating suite and given a general anesthetic. Placed lithotomy position with a sterile prep and drape. Cystoscopy identifies a normal bladder mucosa. The left ureteral orifice is normal. The right ureteral orifice is tiny. Within a cone-tipped catheter right retrograde pyelograms performed. The ureter is very delicate normal until just above the iliac vessels weren't makes a sharp medial deflection and then turned back towards the ureteropelvic junction of that. There appears to be a right UPJ obstruction with proximal hydronephrosis. The ureter that turns medially is not dilated. I then pass an 035 wire up the ureter into the kidney. Over the wire I attempte d to pass a reentry sheath but meet resistance below the vessels. As the flexible ureteroscope through the ureter and then to about the vessels. Or the right ureter deflects medially I have a difficult time passing the scope. I dilate the ureter with a 4-Serbian dilating balloon and I'm then successfully able to slowly manipulate the ureteroscope up through the ureter up to the UPJ and through the UPJ into the kidney. I do not identify any intraluminal defects or abnormality other than a small delicate and perhaps scarred ureter. The patient has not had any previous abdominal surgery to explain the tortuosity of the distal ureter since it is not dilated. 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 Whether the tortuosity of the right ureter has any contribution to what is going on is indeterminate. I will review the computed tomography scan with radiology. This has been discussed at length with the patient's family.
[2024-07-28 11:22] VITALS: RESP 16
[2024-07-28 11:48] VITALS: BP 137/77; PULSE 92
--- NOTE | 2024-07-28 12:47 | FL ---
EXAMINATION TYPE: FL guidance operating room DATE OF EXAM: 07/28/2024 10:52 AM COMPARISON: Pre Operative Images if available both CT/MRI or plain film CLINICAL INDICATION: Female, 74 years old with history of RIGHT HYDRONEPHROSIS; TECHNIQUE: FL guidance operating room, multiple fluoroscopic images provided for procedure. Total fluoroscopy time: 61 seconds Total submitted images to PACS: 5 DAP: [id number] mGym2 Gycm2 uGym2 cGycm2 or equivalent. FINDINGS: Fluoroscopic images taken for renal stone. Renal stone identified projecting over the renal sinus. No evidence of pneumoperitoneum. Multilevel degeneration changes of the spine. IMPRESSION: 1. No evidence for intraoperative complication. 2. Please see the operative/procedural note for further details. [facility], , 07/28/2024 12:45 PM
== END 2024-07-28 12:17 | disposition home or self-care (01) ==
LOC: OR 08:41
PROVIDERS: ATTEND Urology
DX: N13.1 Hydronephrosis with ureteral stricture, not elsewhere classified (principal); M19.90 Unspecified osteoarthritis, unspecified site; Z79.899 Other long term (current) drug therapy; Z87.891 Personal history of nicotine dependence; Z98.890 Other specified postprocedural states
CPT/HCPCS: 74018; 52351; C1758; C1769; J1100; J2405; J2003; J3010; J1580; J0290; J2704; Q9967

== ENCOUNTER 2024-08-19 18:58 | Inpatient (IN) | payer MEDICARE ==
--- NOTE | 2024-08-19 19:19 | ED ---
Abdominal Pain HPI - General Chief Complaint: Abdominal Pain Stated Complaint: Abd pain Time Seen by Provider: 08/19/24 19:07 Source: patient, EMS, RN notes reviewed, old records reviewed Mode of arrival: EMS Limitations: no limitations - History of Present Illness Initial Comments: This is a 74-year-old female to ER for abdominal pain today. Patient presents with severe abdominal pain here in the ER patient has difficulty catching a deep breath with severe history of COPD. MD Complaint: abdominal pain -: hour(s), days(s) Location: diffuse, periumbilical Radiation: epigastric Quality: stabbing Consistency: constant Improves With: nothing Worsens With: nothing Associated Symptoms: nausea, vomiting Treatments Prior to Arrival: other - Related Data Home Medications Medication Instructions Recorded Confirmed Zolpidem [Ambien] 10 mg PO HS 05/03/15 08/19/24 ALPRAZolam [Xanax] 0.25 mg PO BID PRN 07/12/24 08/19/24 Alendronate Sodium [Fosamax] 70 mg PO [place] 07/12/24 08/19/24 Ergocalciferol (Vitamin D2) 1,250 mcg PO Q14D 07/12/24 08/19/24 [Drisdol (50,000 Iu)] HYDROcodone/APAP 7.5-325MG [[place] 1 tab PO Q6H PRN 08/19/24 08/19/24 7.5-325] Megestrol [Megace] 400 mg PO DAILY PRN 08/19/24 08/19/24 Omeprazole 20 mg PO DAILY 08/19/24 08/19/24 Potassium Chloride ER [K-Dur 10] 10 meq PO DAILY 08/19/24 08/19/24 Previous Rx's Medication Instructions Recorded Multivitamins, Thera [Multivitamin 1 tab PO DAILY #30 tablet 07/14/24 (formulary)] Atorvastatin [Lipitor] 10 mg PO HS #30 tab 08/23/24 Metoprolol Tartrate [Lopressor] 12.5 mg PO BID #60 tab 08/23/24 Allergies Allergy/AdvReac Type Severity Reaction Status Date / Time No Known Allergies Allergy Verified 08/19/24 21:15 Review of Systems ROS Statement: Those systems with pertinent positive or pertinent negative responses have been documented in the HPI. ROS Other: All systems not noted in ROS Statement are negative. Past Medical History Past Medical History: Renal Disease Additional Past Medical History / Comment(s): hospitalized last week rt kidney not working and rt flank area , started 3 weeks ago had increased fatigue,no apetite,fx left hip Apr 2024 History of Any Multi-Drug Resistant Organisms: None Reported Past Surgical History: Orthopedic Surgery Additional Past Surgical History / Comment(s): ORIF left hip 04/22/24,bone spurs Past Anesthesia/Blood Transfusion Reactions: No Reported Reaction Additional Past Anesthesia/Blood Transfusion Reaction / Comment(s): no hx blood transfusions Past Psychological History: No Psychological Hx Reported Smoking Status: Former smoker - Past Family History Mother Family Medical History: No Reported History General Exam Limitations: no limitations General appearance: alert, in no apparent distress, anxious Head exam: Present: atraumatic, normocephalic, normal inspection Eye exam: Present: normal appearance, PERRL, EOMI. Absent: scleral icterus, conjunctival injection, periorbital swelling ENT exam: Present: normal exam, mucous membranes moist Neck exam: Present: normal inspection. Absent: tenderness, meningismus, lymphadenopathy Respiratory exam: Present: normal lung sounds bilaterally. Absent: respiratory distress, wheezes, rales, rhonchi, stridor Cardiovascular Exam: Present: normal rhythm, tachycardia, normal heart sounds. Absent: systolic murmur, diastolic murmur, rubs, gallop, clicks GI/Abdominal exam: Present: soft, normal bowel sounds. Absent: distended, tenderness, guarding, rebound, rigid Extremities exam: Present: normal inspection, full ROM, normal capillary refill. Absent: tenderness, pedal edema, joint swelling, calf tenderness Back exam: Present: normal inspection Neurological exam: Present: alert, oriented X3, CN II-XII intact Psychiatric exam: Present: normal affect, normal mood Skin exam: Present: warm, dry, intact, normal color. Absent: rash Course Vital Signs 08/19/24 08/19/24 08/19/24 19:00 20:18 21:09 Temperature 97.7 F Pulse Rate 139 H 128 H 124 H Respiratory 32 H 22 Rate Blood Pressure 140/66 108/76 O2 Sat by Pulse 96 98 Oximetry 08/19/24 08/19/24 08/20/24 21:30 22:00 00:00 Temperature Pulse Rate 126 H 134 H 117 H Respiratory 20 20 Rate Blood Pressure 106/65 103/66 O2 Sat by Pulse 94 L 99 Oximetry 08/20/24 08/20/24 08/20/24 03:00 05:00 07:20 Temperature Pulse Rate 112 H 115 H 118 H Respiratory 24 20 20 Rate Blood Pressure 97/67 125/80 106/72 O2 Sat by Pulse 97 98 Oximetry 08/20/24 08/20/24 08/20/24 11:05 12:45 13:58 Temperature Pulse Rate 126 H 122 H 123 H Respiratory 22 20 22 Rate Blood Pressure 110/60 118/79 O2 Sat by Pulse 95 96 Oximetry 08/20/24 08/20/24 08/20/24 16:00 19:48 22:00 Temperature Pulse Rate 122 H 122 H 131 H Respiratory 20 18 23 Rate Blood Pressure 105/80 114/86 129/76 O2 Sat by Pulse 95 99 96 Oximetry 08/20/24 08/20/24 08/21/24 23:00 23:30 00:00 Temperature Pulse Rate 141 H 149 H 122 H Respiratory 12 21 18 Rate Blood Pressure 126/77 96/80 107/67 O2 Sat by Pulse 95 98 97 Oximetry - Reevaluation(s) Reevaluation #1: 08/19/24 19:37 Medical record is reviewed Reevaluation #2: 08/19/24 20:32 Patient's pain is improved Reevaluation #3: 08/19/24 20:32 Patient informed of results questions answered Reevaluation #4: Was pt. sent in by a medical professional or institution (, PA, [facility] [employer], urgent care, hospital, or [facility]...) When possible be specific @ -no Did you speak to anyone other than the patient for history (EMS, parent, family, police, friend...)? What history was obtained from this source @ -no Did you review nursing and triage notes (agree or disagree)? Why? @ -agree Are old charts reviewed (outside hosp., previous admission, EMS record, old EKG, old radiological studies, urgent care reports/EKG's, [facility] records)? Report findings @ -yes Differential Diagnosis (chest pain, altered mental status, abdominal pain women, abdominal pain men, vaginal bleeding, weakness, fever, dyspnea, syncope, headache, dizziness, GI bleed, back pain, seizure, CVA, palpatations, mental health, musculoskeletal)? @ -prior EKG interpreted by me (3pts min.). @ -yes X-rays interpreted by me (1pt min.). @ -yes negative for acute disease CT interpreted by me (1pt min.). @ -Yes negative for any acute changes U/S interpreted by me (1pt. min.). @ -no What testing was considered but not performed or refused? (CT, X-rays, U/S, labs)? Why? @ -none What meds were considered but not given or refused? Why? @ -none Did you discuss the management of the patient with other professionals (professionals i.e. Dr., PA, [facility], lab, RT, psych nurse, social service director, kst operator, teacher, flight communications officer, outsole caser)? Give summary @ -no Was smoking cessation discussed for >3mins.? @ -no Was critical care preformed (if so, how long)? @ -no Were there social determinants of health that impacted care today? How? (Homelessness, low income, unemployed, alcoholism, drug addiction, transportation, low edu. Level, literacy, decrease access to med. care, long-term, rehab)? @ -none Was there de-escalation of care discussed even if they declined (Discuss DNR or withdrawal of care, Hospice)? DNR status @ -no What co-morbidities impacted this encounter? (DM, HTN, Smoking, COPD, CAD, Cancer, CVA, ARF, Chemo, Hep., AIDS, mental health diagnosis, sleep apnea, morbid obesity)? @ -none Was patient admitted / discharged? Hospital course, mention meds given and route, prescriptions, significant lab abnormalities, going to OR and other pertinent info. @ - 74 female to ER for abdominal pain severe abdominal pain intractable abdominal pain here in the ER malnourished anorexic and failure to thrive Admitted Undiagnosed new problem with uncertain prognosis? @ -no Drug Therapy requiring intensive monitoring for toxicity (Heparin, Nitro, Insulin, Cardizem)? @ -no Were any procedures done? @ -no Diagnosis/symptom? @ -Failure to thrive, pain anorexia Acute, or Chronic, or Acute on Chronic? @ -Acute Uncomplicated (without systemic symptoms) or Complicated (systemic symptoms)? @ -Complicated Side effects of treatment? @ -no Exacerbation, Progression, or Severe Exacerbation? @ -exacerbation Poses a threat to life or bodily function? How? (Chest pain, [place], [place], pneumonia, PE, COPD, DKA, ARF, appy, cholecystitis, CVA, Diverticulitis, Homicidal, Suicidal, threat to staff... and all critical care pts) @ -yes extremes of age failure to thrive, pain Reevaluation #5: Differential Abdominal Pain Women: Appendicitis, Cholecystitis, diverticulosis, ischemic bowel, pancreatitis, hepatitis, UTI, gastroenteritis, AAA, incarcerated hernia, bowel obstruction, constipation, inflammatory bowel, hepatitis, peptic ulcer disease, splenic infarction, perforated viscus, vulvitis, ovarian torsion, PID, kidney stone, placenta abruption, this is not meant to be an all-inclusive list - Consultations Consultation #1: Spoke with [facility] who agrees to admit this patient Medical Decision Making - Medical Decision Making 74 female to ER for abdominal pain severe abdominal pain intractable abdominal pain here in the ER malnourished anorexic and failure to thrive - Lab Data Result diagrams: 08/23/24 04:30 08/23/24 04:30 Lab Results 08/19/24 08/19/24 08/19/24 Range/Units 19:59 19:59 19:59 WBC 5.5 (3.8-10.6) k/uL RBC 3.46 L (3.80-5.40) m/uL Hgb 11.6 (11.4-16.0) gm/dL Hct 37.1 (34.0-46.0) % MCV 107.2 H D (80.0-100.0) fL MCH 33.4 (25.0-35.0) pg MCHC 31.2 (31.0-37.0) g/dL RDW 13.6 (11.5-15.5) % Plt Count 607 H (150-450) k/uL Estimated Plt Count (Adequate) MPV 8.2 Immature Gran % (Auto) % Absolute Nucleated RBC % Neutrophils % % Neutrophils % (Manual) 39 % Band Neuts % (Manual) 17 % Lymphocytes % % Lymphocytes % (Manual) 42 % Monocytes % % Monocytes % (Manual) 1 % Eosinophils % % Basophils % % Metamyelocytes % 1 % Myelocytes % 1 % Immature Gran # (0.00-0.04) X 10*3/uL Neutrophils # (1.80-7.70) X 10*3/uL Neutrophils # (Manual) 3.00 (1.3-7.7) k/uL Lymphocytes # (0.90-5.00) X 10*3/uL Lymphocytes # (Manual) 2.31 (1.0-4.8) k/uL Monocytes # (0.20-1.00) X 10*3/uL Monocytes # (Manual) 0.06 (0-1.0) k/uL Eosinophils # (0.04-0.35) X 10*3/uL Basophils # (0.00-0.10) X 10*3/uL Metamyelocytes # (Man) 0.06 H (0) k/uL Myelocytes # (Manual) 0.06 H (0) k/uL Nucleated RBCs 0 (0-0) /100 WBC NRBC/100 WBC Diff (0.00-0.01) X 10*3/uL Manual Slide Review Performed Toxic Granulation Toxic Vacuolation Present Large Platelets Present Polychromasia Present Hypochromasia Slight Macrocytosis Moderate Macrocytosis (manual) (None Seen) PT 13.7 H (10.0-12.5) sec INR 1.3 H (<1.2) APTT 24.8 (22.0-30.0) sec Sodium 137 (137-145) mmol/L Potassium 4.1 (3.5-5.1) mmol/L Chloride 108 H (98-107) mmol/L Carbon Dioxide 7 L* (22-30) mmol/L Anion Gap 22 mmol/L BUN 15 (7-17) mg/dL Creatinine 0.72 (0.52-1.04) mg/dL Est GFR (CKD-EPI) (>=60) Est GFR (CKD-EPI)AfAm >90 (>60 ml/min/1.73 sqM) Est GFR (CKD-EPI)NonAf 85 (>60 ml/min/1.73 sqM) BUN/Creatinine Ratio (12.00-20.00) Ratio Glucose 220 H (74-99) mg/dL Lactic Ac Sepsis Rflx Plasma Lactic Acid Quintin (0.7-2.0) mmol/L Calcium 7.8 L (8.4-10.2) mg/dL Phosphorus (2.4-5.1) mg/dL Magnesium (1.5-2.4) mg/dL Total Bilirubin 0.8 (0.2-1.3) mg/dL AST 41 H (14-36) U/L ALT 29 (4-34) U/L Alkaline Phosphatase 134 H (38-126) U/L Troponin I (0.000-0.034) ng/mL Total Protein 7.4 (6.3-8.2) g/dL Albumin 3.2 L (3.5-5.0) g/dL Globulin (1.6-3.3) g/dL Albumin/Globulin Ratio (1.60-3.17) Ratio Amylase 36 (30-110) U/L Lipase 18 L (23-300) U/L Urine Color Urine Appearance (Clear) Urine pH (5.0-8.0) Ur Specific [place] (1.001-1.035) Urine Protein (Negative) Urine Glucose (UA) (Negative) Urine Ketones (Negative) Urine Blood (Negative) Urine Nitrite (Negative) Urine Bilirubin (Negative) Urine Urobilinogen (<2.0) mg/dL Ur Leukocyte Esterase (Negative) Urine RBC (0-5) /hpf Urine WBC (0-5) /hpf Ur Squamous Epith Cells (0-4) /hpf Amorphous Sediment (None) /hpf Urine Bacteria (None) /hpf Hyaline Casts (0-2) /lpf Urine Mucus (None) /hpf 08/19/24 08/19/24 08/19/24 Range/Units 19:59 19:59 20:48 WBC (3.8-10.6) k/uL RBC (3.80-5.40) m/uL Hgb (11.4-16.0) gm/dL Hct (34.0-46.0) % MCV (80.0-100.0) fL MCH (25.0-35.0) pg MCHC (31.0-37.0) g/dL RDW (11.5-15.5) % Plt Count (150-450) k/uL Estimated Plt Count (Adequate) MPV Immature Gran % (Auto) % Absolute Nucleated RBC % Neutrophils % % Neutrophils % (Manual) % Band Neuts % (Manual) % Lymphocytes % % Lymphocytes % (Manual) % Monocytes % % Monocytes % (Manual) % Eosinophils % % Basophils % % Metamyelocytes % % Myelocytes % % Immature Gran # (0.00-0.04) X 10*3/uL Neutrophils # (1.80-7.70) X 10*3/uL Neutrophils # (Manual) (1.3-7.7) k/uL Lymphocytes # (0.90-5.00) X 10*3/uL Lymphocytes # (Manual) (1.0-4.8) k/uL Monocytes # (0.20-1.00) X 10*3/uL Monocytes # (Manual) (0-1.0) k/uL Eosinophils # (0.04-0.35) X 10*3/uL Basophils # (0.00-0.10) X 10*3/uL Metamyelocytes # (Man) (0) k/uL Myelocytes # (Manual) (0) k/uL Nucleated RBCs (0-0) /100 WBC NRBC/100 WBC Diff (0.00-0.01) X 10*3/uL Manual Slide Review Toxic Granulation Toxic Vacuolation Large Platelets Polychromasia Hypochromasia Macrocytosis Macrocytosis (manual) (None Seen) PT (10.0-12.5) sec INR (<1.2) APTT (22.0-30.0) sec Sodium (137-145) mmol/L Potassium (3.5-5.1) mmol/L Chloride (98-107) mmol/L Carbon Dioxide (22-30) mmol/L Anion Gap mmol/L BUN (7-17) mg/dL Creatinine (0.52-1.04) mg/dL Est GFR (CKD-EPI) (>=60) Est GFR (CKD-EPI)AfAm (>60 ml/min/1.73 sqM) Est GFR (CKD-EPI)NonAf (>60 ml/min/1.73 sqM) BUN/Creatinine Ratio (12.00-20.00) Ratio Glucose (74-99) mg/dL Lactic Ac Sepsis Rflx Y Plasma Lactic Acid Quintin 11.1 H* (0.7-2.0) mmol/L Calcium (8.4-10.2) mg/dL Phosphorus (2.4-5.1) mg/dL Magnesium (1.5-2.4) mg/dL Total Bilirubin (0.2-1.3) mg/dL AST (14-36) U/L ALT (4-34) U/L Alkaline Phosphatase (38-126) U/L Troponin I 0.253 H* (0.000-0.034) ng/mL Total Protein (6.3-8.2) g/dL Albumin (3.5-5.0) g/dL Globulin (1.6-3.3) g/dL Albumin/Globulin Ratio (1.60-3.17) Ratio Amylase (30-110) U/L Lipase (23-300) U/L Urine Color Urine Appearance (Clear) Urine pH (5.0-8.0) Ur Specific [place] (1.001-1.035) Urine Protein (Negative) Urine Glucose (UA) (Negative) Urine Ketones (Negative) Urine Blood (Negative) Urine Nitrite (Negative) Urine Bilirubin (Negative) Urine Urobilinogen (<2.0) mg/dL Ur Leukocyte Esterase (Negative) Urine RBC (0-5) /hpf Urine WBC (0-5) /hpf Ur Squamous Epith Cells (0-4) /hpf Amorphous Sediment (None) /hpf Urine Bacteria (None) /hpf Hyaline Casts (0-2) /lpf Urine Mucus (None) /hpf 08/20/24 08/20/24 08/20/24 Range/Units 00:05 01:02 03:35 WBC (3.8-10.6) k/uL RBC (3.80-5.40) m/uL Hgb (11.4-16.0) gm/dL Hct (34.0-46.0) % MCV (80.0-100.0) fL MCH (25.0-35.0) pg MCHC (31.0-37.0) g/dL RDW (11.5-15.5) % Plt Count (150-450) k/uL Estimated Plt Count (Adequate) MPV Immature Gran % (Auto) % Absolute Nucleated RBC % Neutrophils % % Neutrophils % (Manual) % Band Neuts % (Manual) % Lymphocytes % % Lymphocytes % (Manual) % Monocytes % % Monocytes % (Manual) % Eosinophils % % Basophils % % Metamyelocytes % % Myelocytes % % Immature Gran # (0.00-0.04) X 10*3/uL Neutrophils # (1.80-7.70) X 10*3/uL Neutrophils # (Manual) (1.3-7.7) k/uL Lymphocytes # (0.90-5.00) X 10*3/uL Lymphocytes # (Manual) (1.0-4.8) k/uL Monocytes # (0.20-1.00) X 10*3/uL Monocytes # (Manual) (0-1.0) k/uL Eosinophils # (0.04-0.35) X 10*3/uL Basophils # (0.00-0.10) X 10*3/uL Metamyelocytes # (Man) (0) k/uL Myelocytes # (Manual) (0) k/uL Nucleated RBCs (0-0) /100 WBC NRBC/100 WBC Diff (0.00-0.01) X 10*3/uL Manual Slide Review Toxic Granulation Toxic Vacuolation Large Platelets Polychromasia Hypochromasia Macrocytosis Macrocytosis (manual) (None Seen) PT (10.0-12.5) sec INR (<1.2) APTT (22.0-30.0) sec Sodium (137-145) mmol/L Potassium (3.5-5.1) mmol/L Chloride (98-107) mmol/L Carbon Dioxide (22-30) mmol/L Anion Gap mmol/L BUN (7-17) mg/dL Creatinine (0.52-1.04) mg/dL Est GFR (CKD-EPI) (>=60) Est GFR (CKD-EPI)AfAm (>60 ml/min/1.73 sqM) Est GFR (CKD-EPI)NonAf (>60 ml/min/1.73 sqM) BUN/Creatinine Ratio (12.00-20.00) Ratio Glucose (74-99) mg/dL Lactic Ac Sepsis Rflx Y Plasma Lactic Acid Quintin 8.1 H* 7.6 H* (0.7-2.0) mmol/L Calcium (8.4-10.2) mg/dL Phosphorus (2.4-5.1) mg/dL Magnesium (1.5-2.4) mg/dL Total Bilirubin (0.2-1.3) mg/dL AST (14-36) U/L ALT (4-34) U/L Alkaline Phosphatase (38-126) U/L Troponin I (0.000-0.034) ng/mL Total Protein (6.3-8.2) g/dL Albumin (3.5-5.0) g/dL Globulin (1.6-3.3) g/dL Albumin/Globulin Ratio (1.60-3.17) Ratio Amylase (30-110) U/L Lipase (23-300) U/L Urine Color Urine Appearance (Clear) Urine pH (5.0-8.0) Ur Specific [place] (1.001-1.035) Urine Protein (Negative) Urine Glucose (UA) (Negative) Urine Ketones (Negative) Urine Blood (Negative) Urine Nitrite (Negative) Urine Bilirubin (Negative) Urine Urobilinogen (<2.0) mg/dL Ur Leukocyte Esterase (Negative) Urine RBC (0-5) /hpf Urine WBC (0-5) /hpf Ur Squamous Epith Cells (0-4) /hpf Amorphous Sediment (None) /hpf Urine Bacteria (None) /hpf Hyaline Casts (0-2) /lpf Urine Mucus (None) /hpf 08/20/24 08/20/24 08/20/24 Range/Units 04:07 06:36 06:37 WBC 14.97 H (3.8-10.6) k/uL RBC 3.47 L (3.80-5.40) m/uL Hgb 11.5 L (11.4-16.0) gm/dL Hct 36.8 L (34.0-46.0) % MCV 106.1 H (80.0-100.0) fL MCH 33.1 H (25.0-35.0) pg MCHC 31.3 L (31.0-37.0) g/dL RDW 13.7 (11.5-15.5) % Plt Count 431 (150-450) k/uL Estimated Plt Count Adequate (Adequate) MPV 10.0 Immature Gran % (Auto) 0.50 % Absolute Nucleated RBC 0 % Neutrophils % 81.0 % Neutrophils % (Manual) % Band Neuts % (Manual) % Lymphocytes % 14.2 % Lymphocytes % (Manual) % Monocytes % 3.7 % Monocytes % (Manual) % Eosinophils % 0 % Basophils % 0.6 % Metamyelocytes % % Myelocytes % % Immature Gran # 0.08 H (0.00-0.04) X 10*3/uL Neutrophils # 12.11 H (1.80-7.70) X 10*3/uL Neutrophils # (Manual) (1.3-7.7) k/uL Lymphocytes # 2.13 (0.90-5.00) X 10*3/uL Lymphocytes # (Manual) (1.0-4.8) k/uL Monocytes # 0.56 (0.20-1.00) X 10*3/uL Monocytes # (Manual) (0-1.0) k/uL Eosinophils # 0 L (0.04-0.35) X 10*3/uL Basophils # 0.09 (0.00-0.10) X 10*3/uL Metamyelocytes # (Man) (0) k/uL Myelocytes # (Manual) (0) k/uL Nucleated RBCs (0-0) /100 WBC NRBC/100 WBC Diff 0 (0.00-0.01) X 10*3/uL Manual Slide Review Morph Only Toxic Granulation Toxic Vacuolation Large Platelets Polychromasia Hypochromasia Macrocytosis Macrocytosis (manual) 2+ A (None Seen) PT (10.0-12.5) sec INR (<1.2) APTT (22.0-30.0) sec Sodium (137-145) mmol/L Potassium (3.5-5.1) mmol/L Chloride (98-107) mmol/L Carbon Dioxide (22-30) mmol/L Anion Gap mmol/L BUN (7-17) mg/dL Creatinine (0.52-1.04) mg/dL Est GFR (CKD-EPI) (>=60) Est GFR (CKD-EPI)AfAm (>60 ml/min/1.73 sqM) Est GFR (CKD-EPI)NonAf (>60 ml/min/1.73 sqM) BUN/Creatinine Ratio (12.00-20.00) Ratio Glucose (74-99) mg/dL Lactic Ac Sepsis Rflx Y Plasma Lactic Acid Quintin (0.7-2.0) mmol/L Calcium (8.4-10.2) mg/dL Phosphorus (2.4-5.1) mg/dL Magnesium (1.5-2.4) mg/dL Total Bilirubin (0.2-1.3) mg/dL AST (14-36) U/L ALT (4-34) U/L Alkaline Phosphatase (38-126) U/L Troponin I (0.000-0.034) ng/mL Total Protein (6.3-8.2) g/dL Albumin (3.5-5.0) g/dL Globulin (1.6-3.3) g/dL Albumin/Globulin Ratio (1.60-3.17) Ratio Amylase (30-110) U/L Lipase (23-300) U/L Urine Color Yellow Urine Appearance Cloudy H (Clear) Urine pH 5.5 (5.0-8.0) Ur Specific [place] 1.034 (1.001-1.035) Urine Protein 1+ H (Negative) Urine Glucose (UA) Negative (Negative) Urine Ketones Negative (Negative) Urine Blood Negative (Negative) Urine Nitrite Negative (Negative) Urine Bilirubin Negative (Negative) Urine Urobilinogen <2.0 (<2.0) mg/dL Ur Leukocyte Esterase Small H (Negative) Urine RBC 4 (0-5) /hpf Urine WBC 14 H (0-5) /hpf Ur Squamous Epith Cells 3 (0-4) /hpf Amorphous Sediment Rare H (None) /hpf Urine Bacteria Many H (None) /hpf Hyaline Casts 39 H (0-2) /lpf Urine Mucus Rare H (None) /hpf 08/20/24 08/20/24 08/20/24 Range/Units 06:37 06:37 08:07 WBC (3.8-10.6) k/uL RBC (3.80-5.40) m/uL Hgb (11.4-16.0) gm/dL Hct (34.0-46.0) % MCV (80.0-100.0) fL MCH (25.0-35.0) pg MCHC (31.0-37.0) g/dL RDW (11.5-15.5) % Plt Count (150-450) k/uL Estimated Plt Count (Adequate) MPV Immature Gran % (Auto) % Absolute Nucleated RBC % Neutrophils % % Neutrophils % (Manual) % Band Neuts % (Manual) % Lymphocytes % % Lymphocytes % (Manual) % Monocytes % % Monocytes % (Manual) % Eosinophils % % Basophils % % Metamyelocytes % % Myelocytes % % Immature Gran # (0.00-0.04) X 10*3/uL Neutrophils # (1.80-7.70) X 10*3/uL Neutrophils # (Manual) (1.3-7.7) k/uL Lymphocytes # (0.90-5.00) X 10*3/uL Lymphocytes # (Manual) (1.0-4.8) k/uL Monocytes # (0.20-1.00) X 10*3/uL Monocytes # (Manual) (0-1.0) k/uL Eosinophils # (0.04-0.35) X 10*3/uL Basophils # (0.00-0.10) X 10*3/uL Metamyelocytes # (Man) (0) k/uL Myelocytes # (Manual) (0) k/uL Nucleated RBCs (0-0) /100 WBC NRBC/100 WBC Diff (0.00-0.01) X 10*3/uL Manual Slide Review Toxic Granulation Toxic Vacuolation Large Platelets Polychromasia Hypochromasia Macrocytosis Macrocytosis (manual) (None Seen) PT (10.0-12.5) sec INR (<1.2) APTT (22.0-30.0) sec Sodium 140 (137-145) mmol/L Potassium 3.4 L (3.5-5.1) mmol/L Chloride 105 (98-107) mmol/L Carbon Dioxide 13.5 L (22-30) mmol/L Anion Gap 21.50 H mmol/L BUN 17.7 (7-17) mg/dL Creatinine 1.1 (0.52-1.04) mg/dL Est GFR (CKD-EPI) 53 L (>=60) Est GFR (CKD-EPI)AfAm (>60 ml/min/1.73 sqM) Est GFR (CKD-EPI)NonAf (>60 ml/min/1.73 sqM) BUN/Creatinine Ratio 16.09 (12.00-20.00) Ratio Glucose 139 H (74-99) mg/dL Lactic Ac Sepsis Rflx Y Plasma Lactic Acid Quintin 7.9 H* (0.7-2.0) mmol/L Calcium 7.6 L (8.4-10.2) mg/dL Phosphorus 5.1 (2.4-5.1) mg/dL Magnesium 1.1 L (1.5-2.4) mg/dL Total Bilirubin 0.3 (0.2-1.3) mg/dL AST 40 H (14-36) U/L ALT 21 (4-34) U/L Alkaline Phosphatase 94 (38-126) U/L Troponin I (0.000-0.034) ng/mL Total Protein 6.4 (6.3-8.2) g/dL Albumin 2.6 L (3.5-5.0) g/dL Globulin 3.8 H (1.6-3.3) g/dL Albumin/Globulin Ratio 0.68 L (1.60-3.17) Ratio Amylase (30-110) U/L Lipase (23-300) U/L Urine Color Urine Appearance (Clear) Urine pH (5.0-8.0) Ur Specific [place] (1.001-1.035) Urine Protein (Negative) Urine Glucose (UA) (Negative) Urine Ketones (Negative) Urine Blood (Negative) Urine Nitrite (Negative) Urine Bilirubin (Negative) Urine Urobilinogen (<2.0) mg/dL Ur Leukocyte Esterase (Negative) Urine RBC (0-5) /hpf Urine WBC (0-5) /hpf Ur Squamous Epith Cells (0-4) /hpf Amorphous Sediment (None) /hpf Urine Bacteria (None) /hpf Hyaline Casts (0-2) /lpf Urine Mucus (None) /hpf 08/20/24 08/20/24 08/20/24 Range/Units 10:25 11:04 11:39 WBC (3.8-10.6) k/uL RBC (3.80-5.40) m/uL Hgb (11.4-16.0) gm/dL Hct (34.0-46.0) % MCV (80.0-100.0) fL MCH (25.0-35.0) pg MCHC (31.0-37.0) g/dL RDW (11.5-15.5) % Plt Count (150-450) k/uL Estimated Plt Count (Adequate) MPV Immature Gran % (Auto) % Absolute Nucleated RBC % Neutrophils % % Neutrophils % (Manual) % Band Neuts % (Manual) % Lymphocytes % % Lymphocytes % (Manual) % Monocytes % % Monocytes % (Manual) % Eosinophils % % Basophils % % Metamyelocytes % % Myelocytes % % Immature Gran # (0.00-0.04) X 10*3/uL Neutrophils # (1.80-7.70) X 10*3/uL Neutrophils # (Manual) (1.3-7.7) k/uL Lymphocytes # (0.90-5.00) X 10*3/uL Lymphocytes # (Manual) (1.0-4.8) k/uL Monocytes # (0.20-1.00) X 10*3/uL Monocytes # (Manual) (0-1.0) k/uL Eosinophils # (0.04-0.35) X 10*3/uL Basophils # (0.00-0.10) X 10*3/uL Metamyelocytes # (Man) (0) k/uL Myelocytes # (Manual) (0) k/uL Nucleated RBCs (0-0) /100 WBC NRBC/100 WBC Diff (0.00-0.01) X 10*3/uL Manual Slide Review Toxic Granulation Toxic Vacuolation Large Platelets Polychromasia Hypochromasia Macrocytosis Macrocytosis (manual) (None Seen) PT (10.0-12.5) sec INR (<1.2) APTT (22.0-30.0) sec Sodium (137-145) mmol/L Potassium (3.5-5.1) mmol/L Chloride (98-107) mmol/L Carbon Dioxide (22-30) mmol/L Anion Gap mmol/L BUN (7-17) mg/dL Creatinine (0.52-1.04) mg/dL Est GFR (CKD-EPI) (>=60) Est GFR (CKD-EPI)AfAm (>60 ml/min/1.73 sqM) Est GFR (CKD-EPI)NonAf (>60 ml/min/1.73 sqM) BUN/Creatinine Ratio (12.00-20.00) Ratio Glucose (74-99) mg/dL Lactic Ac Sepsis Rflx Y Plasma Lactic Acid Quintin 8.0 H* (0.7-2.0) mmol/L Calcium (8.4-10.2) mg/dL Phosphorus (2.4-5.1) mg/dL Magnesium (1.5-2.4) mg/dL Total Bilirubin (0.2-1.3) mg/dL AST (14-36) U/L ALT (4-34) U/L Alkaline Phosphatase (38-126) U/L Troponin I 1.800 H* (0.000-0.034) ng/mL Total Protein (6.3-8.2) g/dL Albumin (3.5-5.0) g/dL Globulin (1.6-3.3) g/dL Albumin/Globulin Ratio (1.60-3.17) Ratio Amylase (30-110) U/L Lipase (23-300) U/L Urine Color Urine Appearance (Clear) Urine pH (5.0-8.0) Ur Specific [place] (1.001-1.035) Urine Protein (Negative) Urine Glucose (UA) (Negative) Urine Ketones (Negative) Urine Blood (Negative) Urine Nitrite (Negative) Urine Bilirubin (Negative) Urine Urobilinogen (<2.0) mg/dL Ur Leukocyte Esterase (Negative) Urine RBC (0-5) /hpf Urine WBC (0-5) /hpf Ur Squamous Epith Cells (0-4) /hpf Amorphous Sediment (None) /hpf Urine Bacteria (None) /hpf Hyaline Casts (0-2) /lpf Urine Mucus (None) /hpf 08/20/24 08/20/24 08/20/24 Range/Units 13:21 13:21 13:21 WBC 20.3 H (3.8-10.6) k/uL RBC 3.00 L (3.80-5.40) m/uL Hgb 10.0 L D (11.4-16.0) gm/dL Hct 32.5 L (34.0-46.0) % MCV 108.2 H (80.0-100.0) fL MCH 33.3 (25.0-35.0) pg MCHC 30.8 L (31.0-37.0) g/dL RDW 14.0 (11.5-15.5) % Plt Count 427 (150-450) k/uL Estimated Plt Count (Adequate) MPV 7.8 Immature Gran % (Auto) % Absolute Nucleated RBC % Neutrophils % % Neutrophils % (Manual) 73 % Band Neuts % (Manual) 16 % Lymphocytes % % Lymphocytes % (Manual) 10 % Monocytes % % Monocytes % (Manual) 1 % Eosinophils % % Basophils % % Metamyelocytes % 2 % Myelocytes % % Immature Gran # (0.00-0.04) X 10*3/uL Neutrophils # (1.80-7.70) X 10*3/uL Neutrophils # (Manual) 18.00 H (1.3-7.7) k/uL Lymphocytes # (0.90-5.00) X 10*3/uL Lymphocytes # (Manual) 2.03 (1.0-4.8) k/uL Monocytes # (0.20-1.00) X 10*3/uL Monocytes # (Manual) 0.20 (0-1.0) k/uL Eosinophils # (0.04-0.35) X 10*3/uL Basophils # (0.00-0.10) X 10*3/uL Metamyelocytes # (Man) 0.41 H (0) k/uL Myelocytes # (Manual) (0) k/uL Nucleated RBCs 0 (0-0) /100 WBC NRBC/100 WBC Diff (0.00-0.01) X 10*3/uL Manual Slide Review Performed Toxic Granulation Present Toxic Vacuolation Large Platelets Polychromasia Hypochromasia Marked Macrocytosis Marked A Macrocytosis (manual) (None Seen) PT 16.3 H (10.0-12.5) sec INR 1.6 H (<1.2) APTT 29.6 (22.0-30.0) sec Sodium (137-145) mmol/L Potassium (3.5-5.1) mmol/L Chloride (98-107) mmol/L Carbon Dioxide (22-30) mmol/L Anion Gap mmol/L BUN (7-17) mg/dL Creatinine (0.52-1.04) mg/dL Est GFR (CKD-EPI) (>=60) Est GFR (CKD-EPI)AfAm (>60 ml/min/1.73 sqM) Est GFR (CKD-EPI)NonAf (>60 ml/min/1.73 sqM) BUN/Creatinine Ratio (12.00-20.00) Ratio Glucose (74-99) mg/dL Lactic Ac Sepsis Rflx Plasma Lactic Acid Quintin 8.8 H* (0.7-2.0) mmol/L Calcium (8.4-10.2) mg/dL Phosphorus (2.4-5.1) mg/dL Magnesium (1.5-2.4) mg/dL Total Bilirubin (0.2-1.3) mg/dL AST (14-36) U/L ALT (4-34) U/L Alkaline Phosphatase (38-126) U/L Troponin I (0.000-0.034) ng/mL Total Protein (6.3-8.2) g/dL Albumin (3.5-5.0) g/dL Globulin (1.6-3.3) g/dL Albumin/Globulin Ratio (1.60-3.17) Ratio Amylase (30-110) U/L Lipase (23-300) U/L Urine Color Urine Appearance (Clear) Urine pH (5.0-8.0) Ur Specific [place] (1.001-1.035) Urine Protein (Negative) Urine Glucose (UA) (Negative) Urine Ketones (Negative) Urine Blood (Negative) Urine Nitrite (Negative) Urine Bilirubin (Negative) Urine Urobilinogen (<2.0) mg/dL Ur Leukocyte Esterase (Negative) Urine RBC (0-5) /hpf Urine WBC (0-5) /hpf Ur Squamous Epith Cells (0-4) /hpf Amorphous Sediment (None) /hpf Urine Bacteria (None) /hpf Hyaline Casts (0-2) /lpf Urine Mucus (None) /hpf - EKG Data -: EKG Interpreted by Me (EKG is sinus tachycardia 140 MO 161 QRS 78 QTc 402) - Radiology Data Radiology results: report reviewed (CT abdomen pelvis unchanged, chest x-ray is negative for acute disease), image reviewed Disposition Clinical Impression: Intractable abdominal pain, Altered mental status Disposition: ADMITTED IP TO THIS HOSP Is patient prescribed a controlled substance at d/c from ED?: No Time of Disposition: 20:30
[2024-08-19] MEDS: SODIUM CHLORIDE 0.9% 1,000 ML IV STA (19:25)
[2024-08-19] MEDS: HYDROmorphone 1 MG/ML 1 ML SYRINGE IVP STA (19:26)
[2024-08-19] MEDS: PANTOPRAZOLE 40 MG/10 ML VIAL IVP STA (19:27)
[2024-08-19] MEDS: ONDANSETRON 4 MG/2 ML VIAL IVP STA (19:27)
--- NOTE | 2024-08-19 20:15 | CT ---
EXAMINATION TYPE: CT abdomen pelvis wo con CT DLP: 390.3 mGycm, Automated exposure control for dose reduction was used. DATE OF EXAM: 08/19/2024 7:48 PM COMPARISON: CT abdomen 12/27/2023. CLINICAL INDICATION:Female, 74 years old with history of abdominal pain; Abdominal pain starting appr ox 10 days ago. Recently diagnosed with R sided kidney failure. TECHNIQUE: Axial CT of the abdomen and pelvis. Sagittal and coronal reformats were created on a [employer] workstation. Contrast used: mL of , (none if empty) Oral contrast used: without Oral Contrast (none if empty) FINDINGS: LOWER CHEST: Subsegmental atelectasis present in the lung base. ABDOMEN LIVER: Unremarkable GALLBLADDER AND BILE DUCTS: Compressed between the renal mass and liver parenchyma PANCREAS: Unremarkable. SPLEEN: Unremarkable. ADRENAL GLANDS: Unremarkable. KIDNEYS AND URETERS: There is redemonstration of a large cystic mass involving the right kidney as de scribed on prior CT exam. Masses overall stable in size with associated mass effect on surrounding st ructures as well as compression of the gallbladder. The left kidney is stable in appearance. PELVIS BLADDER: Unremarkable REPRODUCTIVE: Unremarkable. ABDOMEN & PELVIS STOMACH AND BOWEL: Stomach and duodenum are unremarkable. No evidence of bowel obstruction. PERITONEUM/RETROPERITONEUM: No evidence of pneumoperitoneum. Interval development of small volume hima e fluid within the pelvis. VASCULATURE: Moderate atherosclerotic calcifications are present throughout the abdominal aorta and i ts branches. No evidence of aortic aneurysm. MUSCULOSKELETAL: Left hip subtle medullary nail redemonstrated remote compression fractures of the lo wer thoracic and upper lumbar spine, stable. LYMPH NODES: No gross evidence for lymphadenopathy. SOFT TISSUE/ABDOMINAL WALL: Unremarkable IMPRESSION: 1. Noncontrast exam with redemonstration of a large multicystic right renal lesion as described on pr ior contrasted exam in July 2024. The mass does create compression of the gallbladder between the lesion and the hepatic parenchyma. Recommend urology consultation and follow-up. Differential remain s cystic renal mass or xanthogranulomatous pyelonephritis. 2. Interval development of small volume free fluid within the pelvis. This may be related to impressi on #1 and represent rupture of one of the cystic components or urine leakage. 3. Stable remote compression deformities of the thoracic and lumbar spine. [facility], , 08/19/2024 8:12 PM
[2024-08-19] MEDS ORDERED: NALOXONE 0.4 MG/ML 1 ML VIAL IV PRN (20:29)
[2024-08-19 20:36] LABS: HCT 37.1 % (34.0-46.0); HGB 11.6 gm/dL (11.4-16.0); Hypochromasia Slight; MCH 33.4 pg (25.0-35.0); MCHC 31.2 g/dL (31.0-37.0); Macrocytosis Moderate; Mean Platelet Volume 8.2; Platelet Count 607 k/uL (150-450); RBC 3.46 m/uL (3.80-5.40); RDW 13.6 % (11.5-15.5); WBC 5.5 k/uL (3.8-10.6)
[2024-08-19 20:38] LABS: African American GFR (CKD) >90 (>60 ml/min/1.73 sqM); Albumin 3.2 g/dL (3.5-5.0); Amylase 36 U/L (30-110); Anion Gap 22 mmol/L; Blood Urea Nitrogen 15 mg/dL (7-17); Calcium 7.8 mg/dL (8.4-10.2); Chloride 108 mmol/L (98-107); Glucose 220 mg/dL (74-99); Lipase 18 U/L (23-300); MCV 107.2 fL (80.0-100.0); Non-African American GFR(CKD) 85 (>60 ml/min/1.73 sqM); Sodium 137 mmol/L (137-145); Total Bilirubin 0.8 mg/dL (0.2-1.3); Total Protein 7.4 g/dL (6.3-8.2)
[2024-08-19 20:47] LABS: ALT 29 U/L (4-34); AST 41 U/L (14-36); Alkaline Phosphatase 134 U/L (38-126); Carbon Dioxide 7 mmol/L (22-30); Potassium 4.1 mmol/L (3.5-5.1)
[2024-08-19 20:55] LABS: INR 1.3 (<1.2); Partial Thromboplastin Time 24.8 sec (22.0-30.0); Prothrombin Time 13.7 sec (10.0-12.5)
[2024-08-19 21:06] LABS: Monocytes # (M) 0.06 k/uL (0-1.0); Nucleated Red Blood Cells 0 /100 WBC (0-0)
[2024-08-19] MEDS: IPRATROPIUM-ALBUTEROL 3 ML NEB INHALATION STA (21:08)
[2024-08-19 21:09] LABS: Band Neutrophils % 17 %; Lymphocytes # (M) 2.31 k/uL (1.0-4.8); Metamyelocytes # (M) 0.06 k/uL (0); Metamyelocytes % 1 %; Myelocytes # (M) 0.06 k/uL (0); Myelocytes % 1 %; Neutrophils % (M) 39 %; Polychromasia Present; Total Cells Counted 200; Toxic Vacuolation Present
[2024-08-19 21:10] LABS: Large Platelets Present
[2024-08-19] MEDS: SODIUM CHLORIDE 0.9% 500 ML 500 ML IV STA (21:11)
[2024-08-19] MEDS: SODIUM CHLORIDE 0.9% 500 ML 500 ML IV ONE (21:11)
[2024-08-19] MEDS: SODIUM BICARB 8.4% 50 ML SYR (1 MEQ/ML) IV STA (21:26)
--- NOTE | 2024-08-19 21:57 | XR ---
EXAMINATION TYPE: XR chest 2V DATE OF EXAM: 08/19/2024 9:50 PM CLINICAL INDICATION:Female, 74 years old with history of pain; [facility] COMPARISON: Chest radiograph 04/22/2024 TECHNIQUE: XR chest 2V Frontal and lateral views of the chest. FINDINGS: Lungs/Pleura: Right lower lung airspace opacities are identified. No pneumothorax or large effusion. Pulmonary vascularity: Unremarkable. Heart/mediastinum: Cardiomediastinal silhouette is unremarkable. Musculoskeletal: No acute osseous pathology. IMPRESSION: Findings concerning for right lower lung pneumonia. [facility], , 08/19/2024 9:54 PM
[2024-08-19] MEDS: DEXTROSE 5%-0.45% NACL 1,000 ML IV SCH (23:22)
[2024-08-20] MEDS: HYDROmorphone 1 MG/ML 1 ML SYRINGE IVP PRN (02:40)
[2024-08-20] MEDS: ONDANSETRON 4 MG/2 ML VIAL IVP PRN (02:45)
[2024-08-20 06:52] LABS: Amorphous Sediment,Urine Rare /hpf; Appearance,Urine Cloudy (Clear); Bacteria,Urine Many /hpf; Bilirubin,Urine Negative (Negative); Blood,Urine Negative (Negative); Color,Urine Yellow; Glucose,Urine (UA) Negative (Negative); Hyaline Casts,Urine 39 /lpf (0-2); Ketones,Urine Negative (Negative); Leukocyte Esterase,Urine Small (Negative); Mucus,Urine Rare /hpf; Nitrite,Urine Negative (Negative); PH, Urine 5.5 (5.0-8.0); Protein,Urine 1+ (Negative); RBC,Urine 4 /hpf (0-5); Specific Gravity,Urine 1.034 (1.001-1.035); Squamous Epithelial Cell,Urine 3 /hpf (0-4); Urobilinogen,Urine <2.0 mg/dL (<2.0); WBC,Urine 14 /hpf (0-5)
[2024-08-20] MEDS: PANTOPRAZOLE 40 MG/10 ML VIAL IV SCH (08:44)
[2024-08-20 11:00] LABS: ALT 21 U/L (8-44); AST 40 U/L (13-35); Albumin 2.6 g/dL (3.8-4.9); Albumin/Globulin Ratio 0.68 Ratio (1.60-3.17); Alkaline Phosphatase 94 U/L (41-126); BUN/Creat Ratio 16.09 Ratio (12.00-20.00); Blood Urea Nitrogen 17.7 mg/dL (9.0-27.0); Calcium 7.6 mg/dL (8.7-10.3); Carbon Dioxide 13.5 mmol/L (21.6-31.8); Chloride 105 mmol/L (96-109); Globulin 3.8 g/dL (1.6-3.3); Glucose 139 mg/dL (70-110); Magnesium 1.1 mg/dL (1.5-2.4); Phosphorus 5.1 mg/dL (2.4-5.1); Potassium 3.4 mmol/L (3.5-5.5); Sodium 140 mmol/L (135-145); Total Bilirubin 0.3 mg/dL (0.3-1.2); Total Protein 6.4 g/dL (6.2-8.2)
[2024-08-20] MEDS: LACTATED RINGERS 500 ML IV ONE (12:30)
[2024-08-20] MEDS: MAGNESIUM SULFATE-D5W PMX 1 GM in DEXTROSE/WATER 1 100ML.BAG IVPB SCH (12:30)
[2024-08-20] MEDS ORDERED: VANCOMYCIN IV PER PHARMACY 1 EACH MISC MISCELLANE PRN (12:39)
[2024-08-20 13:05] LABS: Basophils # (A) 0.09 X 10*3/uL (0.00-0.10); Basophils % (A) 0.6 %; Eosinophils # (A) 0 X 10*3/uL (0.04-0.35); Eosinophils % (A) 0 %; HCT 36.8 % (37.2-46.3); HGB 11.5 g/dL (12.0-15.0); Lymphocytes # (A) 2.13 X 10*3/uL (0.90-5.00); Lymphocytes % (A) 14.2 %; MCH 33.1 pg (27.0-32.0); MCHC 31.3 g/dL (32.0-37.0); MCV 106.1 FL (80.0-97.0); Macrocytosis (M) 2+ (None Seen); Monocytes # (A) 0.56 X 10*3/uL (0.20-1.00); Monocytes % (A) 3.7 %; NRBC Per 100 WBC 0 X 10*3/uL (0.00-0.01); Neutrophils # (A) 12.11 X 10*3/uL (1.80-7.70); Platelet Count 431 X 10*3/uL (140-440); RBC 3.47 X 10*6/uL (4.10-5.20); RDW 13.7 % (11.5-14.5); WBC 14.97 X 10*3/uL (4.50-10.00)
[2024-08-20] MEDS: HEPARIN SODIUM 1,000 UN/ML (10ML VL) IV ONE (13:30)
[2024-08-20] MEDS ORDERED: DEXTROSE 5%-0.45% NACL 1,000 ML with SODIUM BICARB (1 MEQ/ML) 150 ML IV SCH (13:30)
[2024-08-20] MEDS: SODIUM CHLORIDE 0.9% 500 ML 500 ML IV ONE (13:31)
[2024-08-20 13:36] LABS: HCT 32.5 % (34.0-46.0); Hypochromasia Marked; MCH 33.3 pg (25.0-35.0); MCHC 30.8 g/dL (31.0-37.0); MCV 108.2 fL (80.0-100.0); Macrocytosis Marked; Mean Platelet Volume 7.8; Platelet Count 427 k/uL (150-450); WBC 20.3 k/uL (3.8-10.6)
[2024-08-20] MEDS: HEPARIN SOD,PORK IN 0.45% NACL 25,000 UNIT in 0.45% NACL 1 250ML.BAG IV SCH (13:40)
[2024-08-20] MEDS: CEFEPIME 2 GM in SODIUM CHLORIDE 0.9% 100 ML IVPB SCH (13:42)
[2024-08-20 13:49] LABS: INR 1.6 (<1.2); Partial Thromboplastin Time 29.6 sec (22.0-30.0); Prothrombin Time 16.3 sec (10.0-12.5)
[2024-08-20] MEDS: DEXTROSE 5%-0.45% NACL 1,000 ML with SODIUM BICARB (1 MEQ/ML) 150 ML IV SCH (13:49)
[2024-08-20 14:17] LABS: Band Neutrophils % 16 %; Lymphocytes # (M) 2.03 k/uL (1.0-4.8); Metamyelocytes # (M) 0.41 k/uL (0); Metamyelocytes % 2 %; Neutrophils % (M) 73 %; Nucleated Red Blood Cells 0 /100 WBC (0-0); Total Cells Counted 200
[2024-08-20 14:18] LABS: Toxic Granulation Present
[2024-08-20] MEDS: VANCOMYCIN 750 MG in SODIUM CHLORIDE 0.9% 250 ML IVPB ONE (16:04)
--- NOTE | 2024-08-20 17:08 | P.GSCN ---
History of Present Illness Consult date: 08/20/24 Reason for Consult: Right hydronephrosis History of present illness: This is a 74-year-old female to the hospital with sepsis and right-sided flank pain. she has a known history of right sided UPJ obstruction, causing severe hydronephrosis with mass effect on adjacent organs. She recently underwent right-sided retrograde pyelogram by Dr. De Leon to evaluate the hydronephrosis which was consistent with a UPJ obstruction. Of note the right kidney is completely atrophic. No previous renal surgeries. She is admitted to the hospital secondary to sepsis, elevated troponins and right sided flank pain. She indicated since admission her pain has improved. She denies any dysuria or hematuria. CT abdomen and pelvis does show evidence of the dilated collecting system which is stable from previous finding. Review of Systems - Constitutional Denies chills, Denies fever, Denies weight loss - EENT Ears, nose, mouth and throat: Denies dysphagia - Cardiovascular Denies chest pain, Denies shortness of breath - Respiratory Reports dyspnea - Gastrointestinal Reports abdominal pain - Genitourinary Genitourinary: Reports flank pain, Denies dysuria, Denies hematuria Past Medical History Past Medical History: Renal Disease Additional Past Medical History / Comment(s): hospitalized last week rt kidney not working and rt flank area , started 3 weeks ago had increased fatigue,no apetite,fx left hip Apr 2024 History of Any Multi-Drug Resistant Organisms: None Reported Past Surgical History: Orthopedic Surgery Additional Past Surgical History / Comment(s): ORIF left hip 04/22/24,bone spurs Past Anesthesia/Blood Transfusion Reactions: No Reported Reaction Additional Past Anesthesia/Blood Transfusion Reaction / Comm: no hx blood transfusions Past Psychological History: No Psychological Hx Reported Smoking Status: Former smoker - Past Family History Mother Family Medical History: No Reported History Medications and Allergies Home Medications Medication Instructions Recorded Confirmed Type Zolpidem [Ambien] 10 mg PO HS 05/03/15 08/19/24 History ALPRAZolam [Xanax] 0.25 mg PO BID PRN 07/12/24 08/19/24 History Alendronate Sodium [Fosamax] 70 mg PO [place] 07/12/24 08/19/24 History Ergocalciferol (Vitamin D2) 1,250 mcg PO Q14D 07/12/24 08/19/24 History [Drisdol (50,000 Iu)] Multivitamins, Thera [Multivitamin] 1 tab PO DAILY #30 tablet 07/14/24 08/19/24 Rx HYDROcodone/APAP 7.5-325MG [[place] 1 tab PO Q6H PRN 08/19/24 08/19/24 History 7.5-325] Megestrol [Megace] 400 mg PO DAILY PRN 08/19/24 08/19/24 History Omeprazole 20 mg PO DAILY 08/19/24 08/19/24 History Potassium Chloride ER [K-Dur 10] 10 meq PO DAILY 08/19/24 08/19/24 History Allergies Allergy/AdvReac Type Severity Reaction Status Date / Time No Known Allergies Allergy Verified 08/19/24 21:15 Surgical - Exam Vital Signs Temp Pulse Resp BP Pulse Ox 97.7 F 139 H 32 H 140/66 96 08/19/24 19:00 08/19/24 19:00 08/19/24 19:00 08/19/24 19:00 08/19/24 19:00 - General no distress, no pain - Eyes normal ocular movement, no pale - ENT normal nares, normal mucosa - Respiratory normal expansion, normal respiratory effort - Abdomen Abdomen: soft, non tender - Psychiatric oriented to time, oriented to person, oriented to place Results - Labs 08/20/24 13:21 08/20/24 06:37 Abnormal Lab Results - Last 24 Hours (Table) 08/19/24 08/19/24 08/19/24 Range/Units 19:59 19:59 19:59 WBC (4.50-10.00) X 10*3/uL RBC 3.46 L (3.80-5.40) m/uL Hgb (12.0-15.0) g/dL Hct (37.2-46.3) % MCV 107.2 H D (80.0-100.0) fL MCH (27.0-32.0) pg MCHC (32.0-37.0) g/dL Plt Count 607 H (150-450) k/uL Immature Gran # (0.00-0.04) X 10*3/uL Neutrophils # (1.80-7.70) X 10*3/uL Neutrophils # (Manual) (1.3-7.7) k/uL Eosinophils # (0.04-0.35) X 10*3/uL Metamyelocytes # (Man) 0.06 H (0) k/uL Myelocytes # (Manual) 0.06 H (0) k/uL Macrocytosis Macrocytosis (manual) (None Seen) PT 13.7 H (10.0-12.5) sec INR 1.3 H (<1.2) Potassium (3.5-5.5) mmol/L Chloride 108 H (98-107) mmol/L Carbon Dioxide 7 L* (22-30) mmol/L Anion Gap (4.00-12.00) mmol/L Est GFR (CKD-EPI) (>=60) Glucose 220 H (74-99) mg/dL Plasma Lactic Acid Quintin (0.7-2.0) mmol/L Calcium 7.8 L (8.4-10.2) mg/dL Magnesium (1.5-2.4) mg/dL AST 41 H (14-36) U/L Alkaline Phosphatase 134 H (38-126) U/L Troponin I (0.000-0.034) ng/mL Albumin 3.2 L (3.5-5.0) g/dL Globulin (1.6-3.3) g/dL Albumin/Globulin Ratio (1.60-3.17) Ratio Lipase 18 L (23-300) U/L Urine Appearance (Clear) Urine Protein (Negative) Ur Leukocyte Esterase (Negative) Urine WBC (0-5) /hpf Amorphous Sediment (None) /hpf Urine Bacteria (None) /hpf Hyaline Casts (0-2) /lpf Urine Mucus (None) /hpf 08/19/24 08/19/24 08/20/24 Range/Units 19:59 19:59 00:05 WBC (4.50-10.00) X 10*3/uL RBC (3.80-5.40) m/uL Hgb (12.0-15.0) g/dL Hct (37.2-46.3) % MCV (80.0-100.0) fL MCH (27.0-32.0) pg MCHC (32.0-37.0) g/dL Plt Count (150-450) k/uL Immature Gran # (0.00-0.04) X 10*3/uL Neutrophils # (1.80-7.70) X 10*3/uL Neutrophils # (Manual) (1.3-7.7) k/uL Eosinophils # (0.04-0.35) X 10*3/uL Metamyelocytes # (Man) (0) k/uL Myelocytes # (Manual) (0) k/uL Macrocytosis Macrocytosis (manual) (None Seen) PT (10.0-12.5) sec INR (<1.2) Potassium (3.5-5.5) mmol/L Chloride (98-107) mmol/L Carbon Dioxide (22-30) mmol/L Anion Gap (4.00-12.00) mmol/L Est GFR (CKD-EPI) (>=60) Glucose (74-99) mg/dL Plasma Lactic Acid Quintin 11.1 H* 8.1 H* (0.7-2.0) mmol/L Calcium (8.4-10.2) mg/dL Magnesium (1.5-2.4) mg/dL AST (14-36) U/L Alkaline Phosphatase (38-126) U/L Troponin I 0.253 H* (0.000-0.034) ng/mL Albumin (3.5-5.0) g/dL Globulin (1.6-3.3) g/dL Albumin/Globulin Ratio (1.60-3.17) Ratio Lipase (23-300) U/L Urine Appearance (Clear) Urine Protein (Negative) Ur Leukocyte Esterase (Negative) Urine WBC (0-5) /hpf Amorphous Sediment (None) /hpf Urine Bacteria (None) /hpf Hyaline Casts (0-2) /lpf Urine Mucus (None) /hpf 08/20/24 08/20/24 08/20/24 Range/Units 03:35 06:36 06:37 WBC 14.97 H (4.50-10.00) X 10*3/uL RBC 3.47 L (3.80-5.40) m/uL Hgb 11.5 L (12.0-15.0) g/dL Hct 36.8 L (37.2-46.3) % MCV 106.1 H (80.0-100.0) fL MCH 33.1 H (27.0-32.0) pg MCHC 31.3 L (32.0-37.0) g/dL Plt Count (150-450) k/uL Immature Gran # 0.08 H (0.00-0.04) X 10*3/uL Neutrophils # 12.11 H (1.80-7.70) X 10*3/uL Neutrophils # (Manual) (1.3-7.7) k/uL Eosinophils # 0 L (0.04-0.35) X 10*3/uL Metamyelocytes # (Man) (0) k/uL Myelocytes # (Manual) (0) k/uL Macrocytosis Macrocytosis (manual) 2+ A (None Seen) PT (10.0-12.5) sec INR (<1.2) Potassium (3.5-5.5) mmol/L Chloride (98-107) mmol/L Carbon Dioxide (22-30) mmol/L Anion Gap (4.00-12.00) mmol/L Est GFR (CKD-EPI) (>=60) Glucose (74-99) mg/dL Plasma Lactic Acid Quintin 7.6 H* (0.7-2.0) mmol/L Calcium (8.4-10.2) mg/dL Magnesium (1.5-2.4) mg/dL AST (14-36) U/L Alkaline Phosphatase (38-126) U/L Troponin I (0.000-0.034) ng/mL Albumin (3.5-5.0) g/dL Globulin (1.6-3.3) g/dL Albumin/Globulin Ratio (1.60-3.17) Ratio Lipase (23-300) U/L Urine Appearance Cloudy H (Clear) Urine Protein 1+ H (Negative) Ur Leukocyte Esterase Small H (Negative) Urine WBC 14 H (0-5) /hpf Amorphous Sediment Rare H (None) /hpf Urine Bacteria Many H (None) /hpf Hyaline Casts 39 H (0-2) /lpf Urine Mucus Rare H (None) /hpf 08/20/24 08/20/24 08/20/24 Range/Units 06:37 06:37 10:25 WBC (4.50-10.00) X 10*3/uL RBC (3.80-5.40) m/uL Hgb (12.0-15.0) g/dL Hct (37.2-46.3) % MCV (80.0-100.0) fL MCH (27.0-32.0) pg MCHC (32.0-37.0) g/dL Plt Count (150-450) k/uL Immature Gran # (0.00-0.04) X 10*3/uL Neutrophils # (1.80-7.70) X 10*3/uL Neutrophils # (Manual) (1.3-7.7) k/uL Eosinophils # (0.04-0.35) X 10*3/uL Metamyelocytes # (Man) (0) k/uL Myelocytes # (Manual) (0) k/uL Macrocytosis Macrocytosis (manual) (None Seen) PT (10.0-12.5) sec INR (<1.2) Potassium 3.4 L (3.5-5.5) mmol/L Chloride (98-107) mmol/L Carbon Dioxide 13.5 L (22-30) mmol/L Anion Gap 21.50 H (4.00-12.00) mmol/L Est GFR (CKD-EPI) 53 L (>=60) Glucose 139 H (74-99) mg/dL Plasma Lactic Acid Quintin 7.9 H* 8.0 H* (0.7-2.0) mmol/L Calcium 7.6 L (8.4-10.2) mg/dL Magnesium 1.1 L (1.5-2.4) mg/dL AST 40 H (14-36) U/L Alkaline Phosphatase (38-126) U/L Troponin I (0.000-0.034) ng/mL Albumin 2.6 L (3.5-5.0) g/dL Globulin 3.8 H (1.6-3.3) g/dL Albumin/Globulin Ratio 0.68 L (1.60-3.17) Ratio Lipase (23-300) U/L Urine Appearance (Clear) Urine Protein (Negative) Ur Leukocyte Esterase (Negative) Urine WBC (0-5) /hpf Amorphous Sediment (None) /hpf Urine Bacteria (None) /hpf Hyaline Casts (0-2) /lpf Urine Mucus (None) /hpf 08/20/24 08/20/24 08/20/24 Range/Units 11:39 13:21 13:21 WBC 20.3 H (4.50-10.00) X 10*3/uL RBC 3.00 L (3.80-5.40) m/uL Hgb 10.0 L D (12.0-15.0) g/dL Hct 32.5 L (37.2-46.3) % MCV 108.2 H (80.0-100.0) fL MCH (27.0-32.0) pg MCHC 30.8 L (32.0-37.0) g/dL Plt Count (150-450) k/uL Immature Gran # (0.00-0.04) X 10*3/uL Neutrophils # (1.80-7.70) X 10*3/uL Neutrophils # (Manual) 18.00 H (1.3-7.7) k/uL Eosinophils # (0.04-0.35) X 10*3/uL Metamyelocytes # (Man) 0.41 H (0) k/uL Myelocytes # (Manual) (0) k/uL Macrocytosis Marked A Macrocytosis (manual) (None Seen) PT 16.3 H (10.0-12.5) sec INR 1.6 H (<1.2) Potassium (3.5-5.5) mmol/L Chloride (98-107) mmol/L Carbon Dioxide (22-30) mmol/L Anion Gap (4.00-12.00) mmol/L Est GFR (CKD-EPI) (>=60) Glucose (74-99) mg/dL Plasma Lactic Acid Quintin (0.7-2.0) mmol/L Calcium (8.4-10.2) mg/dL Magnesium (1.5-2.4) mg/dL AST (14-36) U/L Alkaline Phosphatase (38-126) U/L Troponin I 1.800 H* (0.000-0.034) ng/mL Albumin (3.5-5.0) g/dL Globulin (1.6-3.3) g/dL Albumin/Globulin Ratio (1.60-3.17) Ratio Lipase (23-300) U/L Urine Appearance (Clear) Urine Protein (Negative) Ur Leukocyte Esterase (Negative) Urine WBC (0-5) /hpf Amorphous Sediment (None) /hpf Urine Bacteria (None) /hpf Hyaline Casts (0-2) /lpf Urine Mucus (None) /hpf 08/20/24 08/20/24 Range/Units 13:21 14:47 WBC (4.50-10.00) X 10*3/uL RBC (3.80-5.40) m/uL Hgb (12.0-15.0) g/dL Hct (37.2-46.3) % MCV (80.0-100.0) fL MCH (27.0-32.0) pg MCHC (32.0-37.0) g/dL Plt Count (150-450) k/uL Immature Gran # (0.00-0.04) X 10*3/uL Neutrophils # (1.80-7.70) X 10*3/uL Neutrophils # (Manual) (1.3-7.7) k/uL Eosinophils # (0.04-0.35) X 10*3/uL Metamyelocytes # (Man) (0) k/uL Myelocytes # (Manual) (0) k/uL Macrocytosis Macrocytosis (manual) (None Seen) PT (10.0-12.5) sec INR (<1.2) Potassium (3.5-5.5) mmol/L Chloride (98-107) mmol/L Carbon Dioxide (22-30) mmol/L Anion Gap (4.00-12.00) mmol/L Est GFR (CKD-EPI) (>=60) Glucose (74-99) mg/dL Plasma Lactic Acid Quintin 8.8 H* (0.7-2.0) mmol/L Calcium (8.4-10.2) mg/dL Magnesium (1.5-2.4) mg/dL AST (14-36) U/L Alkaline Phosphatase (38-126) U/L Troponin I 1.180 H* (0.000-0.034) ng/mL Albumin (3.5-5.0) g/dL Globulin (1.6-3.3) g/dL Albumin/Globulin Ratio (1.60-3.17) Ratio Lipase (23-300) U/L Urine Appearance (Clear) Urine Protein (Negative) Ur Leukocyte Esterase (Negative) Urine WBC (0-5) /hpf Amorphous Sediment (None) /hpf Urine Bacteria (None) /hpf Hyaline Casts (0-2) /lpf Urine Mucus (None) /hpf Diabetes panel 08/19/24 08/20/24 Range/Units 19:59 06:37 Sodium 137 140 (137-145) mmol/L Potassium 4.1 3.4 L (3.5-5.1) mmol/L Chloride 108 H 105 (98-107) mmol/L Carbon Dioxide 7 L* 13.5 L (22-30) mmol/L BUN 15 17.7 (7-17) mg/dL Creatinine 0.72 1.1 (0.52-1.04) mg/dL Glucose 220 H 139 H (74-99) mg/dL Calcium 7.8 L 7.6 L (8.4-10.2) mg/dL AST 41 H 40 H (14-36) U/L ALT 29 21 (4-34) U/L Alkaline Phosphatase 134 H 94 (38-126) U/L Total Protein 7.4 6.4 (6.3-8.2) g/dL Albumin 3.2 L 2.6 L (3.5-5.0) g/dL Calcium panel 08/19/24 08/20/24 Range/Units 19:59 06:37 Calcium 7.8 L 7.6 L (8.4-10.2) mg/dL Phosphorus 5.1 (2.4-5.1) mg/dL Albumin 3.2 L 2.6 L (3.5-5.0) g/dL Pituitary panel 08/19/24 08/20/24 Range/Units 19:59 06:37 Sodium 137 140 (137-145) mmol/L Potassium 4.1 3.4 L (3.5-5.1) mmol/L Chloride 108 H 105 (98-107) mmol/L Carbon Dioxide 7 L* 13.5 L (22-30) mmol/L BUN 15 17.7 (7-17) mg/dL Creatinine 0.72 1.1 (0.52-1.04) mg/dL Glucose 220 H 139 H (74-99) mg/dL Calcium 7.8 L 7.6 L (8.4-10.2) mg/dL Adrenal panel 08/19/24 08/20/24 Range/Units 19:59 06:37 Sodium 137 140 (137-145) mmol/L Potassium 4.1 3.4 L (3.5-5.1) mmol/L Chloride 108 H 105 (98-107) mmol/L Carbon Dioxide 7 L* 13.5 L (22-30) mmol/L BUN 15 17.7 (7-17) mg/dL Creatinine 0.72 1.1 (0.52-1.04) mg/dL Glucose 220 H 139 H (74-99) mg/dL Calcium 7.8 L 7.6 L (8.4-10.2) mg/dL Total Bilirubin 0.8 0.3 (0.2-1.3) mg/dL AST 41 H 40 H (14-36) U/L ALT 29 21 (4-34) U/L Alkaline Phosphatase 134 H 94 (38-126) U/L Total Protein 7.4 6.4 (6.3-8.2) g/dL Albumin 3.2 L 2.6 L (3.5-5.0) g/dL Assessment and Plan Assessment: 74-year-old female with history of right-sided UPJ obstruction, causing significant hydronephrosis with mass effect of the kidney. She is admitted to the hospital with multiple issues at this time. Discussed given ongoing problem we are not given do anything during this hospital admission for her hydronephrosis. Discussed with her she will eventually require a robotic right-sided nephrectomy given her pain in the atrophic kidney. Will arrange for that as an outpatient, she will need to be cleared by cardiology prior to proceeding with any surgical intervention from my and given the elevation in troponins. -She will be set up for a right robotic simple nephrectomy as an outpatient, if she is cleared medically and from cardiac standpoint
--- NOTE | 2024-08-20 17:26 | P.HPIM ---
History of Present Illness H&P Date: 08/20/24 History of present illness; Patient is a 74-year-old female with large cystic mass in right upper quadrant and atrophic right kidney who presents with abdominal pain and altered mental status. Patient states that pain started yesterday and progressed to the day. She describes pain as stabbing in nature. Previously with the pain she took Tylenol which only moderately improved her symptoms. She has associated symptoms of fever, shortness of breath, nausea, and denies chest pain or palpitations, vomiting. Patient was admitted 5 weeks ago with similar symptoms and was found to have cystic mass in right upper quadrant and atrophic kidney on CT abdomen with likely compression. Labs significant for hemoglobin 11.6, MCV 107.2, platelets 607, PT 13.7, INR 1.3, bicarb 7, glucose 220, lactic acid venous 11.1 => 7.9, calcium 7.8, AST 41, ALT 29, ALP 134, troponin 0.253, lipase 18, UA significant for cloudy appearance, 1+ protein, small leukocyte esterase, urine WBC 14, amorphous sediment rare, urine bacteria many, hyaline cast 39, urine mucus rare Chest x-ray done independently interpreted in the ER showed right lower lung airspace opacities. CT abdomen pelvis done independently interpreted showed large cystic mass involving right kidney, stable from prior CT Spoke with the ER physician, patient admission was accepted by internal medicine service for treatment. REVIEW OF SYSTEMS: Pertinent positives and negatives noted in HPI. PHYSICAL EXAMINATION: Vitals reviewed GENERAL: Moderately distressed. Thin appearing. HEENT: Pupils are round and equally reacting to light. EOMI. No scleral icterus. Normocephalic, atraumatic. CARDIOVASCULAR: S1 and S2 present. No murmurs, rubs, or gallops. PULMONARY: Chest is clear to auscultation, no wheezing, rhonchi, or crackles. ABDOMEN: Soft, nontender, nondistended, normoactive bowel sounds. No palpable organomegaly. MUSCULOSKELETAL: Joint deformities in hands and feet EXTREMITIES: No apparent cyanosis, clubbing, or pedal edema. NEUROLOGICAL: Alert. Gross neurological examination did not reveal any focal deficits. SKIN: Rashes bilateral lower extremities. Labs reviewed during day WBC 14.97 => 20.3, hemoglobin 11.5 => 10.0, MCV 106.1 => 108.2, potassium 3.4, bicarb 13.5, anion gap 21.5, glucose 139, lactic acid 7.6 => 7.9 => 8.0 => 8.8 => 7.0, troponin 1.80 => 1.18 Imaging reviewed Assessment and plan Patient is a 74-year-old female with renal disease who presents with abdominal pain and altered mental status. #Sepsis #Abdominal pain #Lactic acidosis #Elevated troponin WBC 20.3, respiratory rate 32, with altered mental status Initial troponin 0.253 => 1.80 => 1.18 Given fluid resuscitation Given bicarbonate Dilaudid 1 Mg IVP every 3 hours as needed Begin vancomycin, dosing per pharmacy Begin cefepime 2 g IVPB every 12 hours Begin IV heparin - Begin IV D5 half NS at 75 mL/h with bicarbonate - CT AP findings of large cystic mass involving right kidney Echo pending Infectious disease consulted Cardiology consulted Urology consulted Chronic Medical Conditions #GERD - Resume home Pantoprazole #Anxiety/Depression - Resume home Xanax twice daily as needed F: As above E: Replete as needed N: Regular diet as tolerated DVT ppx: Heparin Code status: Full code Anticipated discharge place: Pending clinical course Anticipated discharge time: Pending clinical course Dictation was produced using [employer] dictation software. Please excuse any grammatical, word or spelling errors. Attestation I have seen and examined this patient with my resident , discussed the same with the resident/AUGUST, and agree with the dictator's assessment and plan as written Dr. Aneudy whitehead Past Medical History Past Medical History: Renal Disease Additional Past Medical History / Comment(s): hospitalized last week rt kidney not working and rt flank area , started 3 weeks ago had increased fatigue,no apetite,fx left hip Apr 2024 History of Any Multi-Drug Resistant Organisms: None Reported Past Surgical History: Orthopedic Surgery Additional Past Surgical History / Comment(s): ORIF left hip 04/22/24,bone spurs Past Anesthesia/Blood Transfusion Reactions: No Reported Reaction Additional Past Anesthesia/Blood Transfusion Reaction / Comment(s): no hx blood transfusions Past Psychological History: No Psychological Hx Reported Smoking Status: Former smoker - Past Family History Mother Family Medical History: No Reported History Medications and Allergies Home Medications Medication Instructions Recorded Confirmed Type Zolpidem [Ambien] 10 mg PO HS 05/03/15 08/19/24 History ALPRAZolam [Xanax] 0.25 mg PO BID PRN 07/12/24 08/19/24 History Alendronate Sodium [Fosamax] 70 mg PO [place]WE[place]Y 07/12/24 08/19/24 History Ergocalciferol (Vitamin D2) 1,250 mcg PO Q14D 07/12/24 08/19/24 History [Drisdol (50,000 Iu)] Multivitamins, Thera [Multivitamin] 1 tab PO DAILY #30 tablet 07/14/24 08/19/24 Rx HYDROcodone/APAP 7.5-325MG [[place] 1 tab PO Q6H PRN 08/19/24 08/19/24 History 7.5-325] Megestrol [Megace] 400 mg PO DAILY PRN 08/19/24 08/19/24 History Omeprazole 20 mg PO DAILY 08/19/24 08/19/24 History Potassium Chloride ER [K-Dur 10] 10 meq PO DAILY 08/19/24 08/19/24 History Allergies Allergy/AdvReac Type Severity Reaction Status Date / Time No Known Allergies Allergy Verified 08/19/24 21:15 Physical Exam Vitals: Vital Signs Temp Pulse Resp BP Pulse Ox 08/20/24 07:20 118 H 20 106/72 98 08/20/24 05:00 115 H 20 125/80 08/20/24 03:00 112 H 24 97/67 97 08/20/24 00:00 117 H 20 103/66 99 08/19/24 22:00 134 H 20 106/65 94 L 08/19/24 21:30 126 H 08/19/24 21:09 124 H 08/19/24 20:18 128 H 22 108/76 98 08/19/24 19:00 97.7 F 139 H 32 H 140/66 96 Intake and Output 08/19/24 08/20/24 08/20/24 22:59 06:59 14:59 Output Total 257 Balance -257 Output: Post Void Residual 257 Other: Weight 40.823 kg Results CBC & Chem 7: 08/22/24 05:42 08/22/24 05:42 Labs: Abnormal Lab Results - Last 24 Hours (Table) 08/19/24 08/19/24 08/19/24 Range/Units 19:59 19:59 19:59 RBC 3.46 L (3.80-5.40) m/uL MCV 107.2 H D (80.0-100.0) fL Plt Count 607 H (150-450) k/uL Metamyelocytes # (Man) 0.06 H (0) k/uL Myelocytes # (Manual) 0.06 H (0) k/uL PT 13.7 H (10.0-12.5) sec INR 1.3 H (<1.2) Chloride 108 H (98-107) mmol/L Carbon Dioxide 7 L* (22-30) mmol/L Glucose 220 H (74-99) mg/dL Plasma Lactic Acid Quintin (0.7-2.0) mmol/L Calcium 7.8 L (8.4-10.2) mg/dL AST 41 H (14-36) U/L Alkaline Phosphatase 134 H (38-126) U/L Troponin I (0.000-0.034) ng/mL Albumin 3.2 L (3.5-5.0) g/dL Lipase 18 L (23-300) U/L Urine Appearance (Clear) Urine Protein (Negative) Ur Leukocyte Esterase (Negative) Urine WBC (0-5) /hpf Amorphous Sediment (None) /hpf Urine Bacteria (None) /hpf Hyaline Casts (0-2) /lpf Urine Mucus (None) /hpf 08/19/24 08/19/24 08/20/24 Range/Units 19:59 19:59 00:05 RBC (3.80-5.40) m/uL MCV (80.0-100.0) fL Plt Count (150-450) k/uL Metamyelocytes # (Man) (0) k/uL Myelocytes # (Manual) (0) k/uL PT (10.0-12.5) sec INR (<1.2) Chloride (98-107) mmol/L Carbon Dioxide (22-30) mmol/L Glucose (74-99) mg/dL Plasma Lactic Acid Quintin 11.1 H* 8.1 H* (0.7-2.0) mmol/L Calcium (8.4-10.2) mg/dL AST (14-36) U/L Alkaline Phosphatase (38-126) U/L Troponin I 0.253 H* (0.000-0.034) ng/mL Albumin (3.5-5.0) g/dL Lipase (23-300) U/L Urine Appearance (Clear) Urine Protein (Negative) Ur Leukocyte Esterase (Negative) Urine WBC (0-5) /hpf Amorphous Sediment (None) /hpf Urine Bacteria (None) /hpf Hyaline Casts (0-2) /lpf Urine Mucus (None) /hpf 08/20/24 08/20/24 08/20/24 Range/Units 03:35 06:36 06:37 RBC (3.80-5.40) m/uL MCV (80.0-100.0) fL Plt Count (150-450) k/uL Metamyelocytes # (Man) (0) k/uL Myelocytes # (Manual) (0) k/uL PT (10.0-12.5) sec INR (<1.2) Chloride (98-107) mmol/L Carbon Dioxide (22-30) mmol/L Glucose (74-99) mg/dL Plasma Lactic Acid Quintin 7.6 H* 7.9 H* (0.7-2.0) mmol/L Calcium (8.4-10.2) mg/dL AST (14-36) U/L Alkaline Phosphatase (38-126) U/L Troponin I (0.000-0.034) ng/mL Albumin (3.5-5.0) g/dL Lipase (23-300) U/L Urine Appearance Cloudy H (Clear) Urine Protein 1+ H (Negative) Ur Leukocyte Esterase Small H (Negative) Urine WBC 14 H (0-5) /hpf Amorphous Sediment Rare H (None) /hpf Urine Bacteria Many H (None) /hpf Hyaline Casts 39 H (0-2) /lpf Urine Mucus Rare H (None) /hpf
[2024-08-20] MEDS ORDERED: MAGNESIUM SULFATE-D5W PMX 1 GM in DEXTROSE/WATER 1 100ML.BAG IVPB SCH (17:45)
[2024-08-20] MEDS: LACTATED RINGERS 1,000 ML IV ONE (19:33)
[2024-08-20] MEDS: SODIUM CHLORIDE 0.9% 1,000 ML IV ONE (19:34)
[2024-08-20] MEDS: ALPRAZolam 0.25 MG TAB PO PRN (20:29)
[2024-08-21] MEDS: SODIUM CHLORIDE 0.9% 500 ML 500 ML IV ONE (00:10)
[2024-08-21] MEDS: ZOLPIDEM 5 MG TAB PO PRN (01:21)
[2024-08-21 03:57] LABS: HCT 29.3 % (34.0-46.0); HGB 9.4 gm/dL (11.4-16.0); MCH 33.5 pg (25.0-35.0); MCHC 31.9 g/dL (31.0-37.0); MCV 105.2 fL (80.0-100.0); Macrocytosis Moderate; Mean Platelet Volume 7.9; Platelet Count 335 k/uL (150-450); RBC 2.79 m/uL (3.80-5.40); RDW 13.9 % (11.5-15.5); WBC 17.4 k/uL (3.8-10.6)
[2024-08-21 04:02] LABS: INR 1.5 (<1.2); Prothrombin Time 15.5 sec (10.0-12.5)
[2024-08-21 04:37] LABS: Band Neutrophils % 7 %; Lymphocytes # (M) 1.91 k/uL (1.0-4.8); Monocytes # (M) 0.87 k/uL (0-1.0); Neutrophils % (M) 77 %; Nucleated Red Blood Cells 0 /100 WBC (0-0); Total Cells Counted 100
[2024-08-21 04:42] LABS: Tear Drop Cells Present
[2024-08-21 06:57] LABS: Basophils % (A) 0 %; Eosinophils % (A) 0 %; HCT 29.2 % (34.0-46.0); HGB 9.3 gm/dL (11.4-16.0); Lymphocytes # (A) 1.5 k/uL (1.0-4.8); Lymphocytes % (A) 10 %; MCH 33.3 pg (25.0-35.0); MCHC 31.9 g/dL (31.0-37.0); MCV 104.3 fL (80.0-100.0); Macrocytosis Slight; Mean Platelet Volume 7.2; Monocytes # (A) 0.3 k/uL (0-1.0); Monocytes % (A) 2 %; Neutrophils # (A) 13.6 k/uL (1.3-7.7); Neutrophils % (A) 87 %; Platelet Count 320 k/uL (150-450); RDW 13.8 % (11.5-15.5); WBC 15.6 k/uL (3.8-10.6)
[2024-08-21 07:14] LABS: ALT 19 U/L (4-34); AST 35 U/L (14-36); African American GFR (CKD) 55 (>60 ml/min/1.73 sqM); Albumin 2.1 g/dL (3.5-5.0); Alkaline Phosphatase 94 U/L (38-126); Anion Gap 12 mmol/L; Blood Urea Nitrogen 28 mg/dL (7-17); Calcium 6.9 mg/dL (8.4-10.2); Carbon Dioxide 16 mmol/L (22-30); Chloride 106 mmol/L (98-107); Glucose 160 mg/dL (74-99); Magnesium 1.6 mg/dL (1.6-2.3); Non-African American GFR(CKD) 47 (>60 ml/min/1.73 sqM); Potassium 3.6 mmol/L (3.5-5.1); Sodium 134 mmol/L (137-145); Total Bilirubin 0.3 mg/dL (0.2-1.3); Total Protein 5.3 g/dL (6.3-8.2)
[2024-08-21 07:31] LABS: Glucose,Whole Blood 168 mg/dL (70-110)
--- NOTE | 2024-08-21 07:59 | XR ---
EXAMINATION TYPE: XR chest 1V DATE OF EXAM: 08/21/2024 CLINICAL HISTORY: Difficulty breathing progress study. TECHNIQUE: Single AP portable upright view of the chest is obtained. COMPARISON: Chest x-ray from 2 days earlier FINDINGS: There are bibasilar opacities on current study. Low lung volumes redemonstrated. Cardiac s ilhouette size is upper limits of normal. Osseous structures are intact. IMPRESSION: Persistent right basilar acute infiltrate and/or atelectasis. New left basilar acute infi ltrate and/or atelectasis noted. [facility], , 08/21/2024 7:56 AM
[2024-08-21 08:00] LABS: ABG Base Excess -8.2 mmol/L; ABG HCO3 15 mmol/L (21-25); ABG Oxygen Saturation 99.9 % (94-97); ABG PCO2 24 mmHg (35-45); ABG PH 7.41 (7.35-7.45); ABG PO2 147 mmHg (83-108); ABG TCO2 16 mmol/L (19-24); Allen Test Performed? Yes
[2024-08-21] MEDS: FUROSEMIDE 10 MG/ML 2 ML VIAL IV ONE (08:29)
[2024-08-21 08:50] LABS: Glucose,Whole Blood 175 mg/dL (70-110)
--- NOTE | 2024-08-21 08:56 | P.CONS ---
History of Present Illness - Reason for Consult Consult date: 08/20/24 Sepsis Requesting physician: Aneudy Osorio - Chief Complaint Abdominal pain x days - History of Present Illness Patient is a 74-year-old female with a past medical history significant for right sided hydronephrosis secondary to ureteropelvic junction obstruction and recently did have a right-sided retrograde pyelogram that was suggestive of hydronephrosis secondary to UPJ obstruction patient did have a urine culture done on 07/12/2024 grew E. coli that was a sensitive pathogen however I did not see any antibiotics on her discharge from 07/14/2024 patient now presenting back to the hospital concerning for abdominal pain patient pain has been mostly on the right side patient is currently the pain to be sharp moderate to severe intensity without radiation this is a nausea but no vomiting he denies having any headache no chest pain shortness of breath or cough and no diarrhea patient on presentation to the hospital was afebrile no fever have been recorded subsequently patient was tachycardic but not hypotensive mildly hypoxic currently on 2 L nasal cannula oxygen patient did have a white count of 20,000 with a left shift creatinine normal at 1.1 lactic acid is 5.7 initial lactic acid was 11.1 urine has been positive patient did have a abdominal pelvis CT we did shows large multicystic right renal lesion that was does create compression of the gallbladder and interval development of small volume free fluid in the pelvis patient was given dose of Rocephin subsequently but has been switched over to vancomycin and cefepime infectious was consulted because of sepsis Review of Systems Positive point and negatives has been mentioned in the HPI, complete review of systems was performed and all other systems are negative Past Medical History Past Medical History: Renal Disease Additional Past Medical History / Comment(s): hospitalized last week rt kidney n ot working and rt flank area , started 3 weeks ago had increased fatigue,no apetite,fx left hip Apr 2024 History of Any Multi-Drug Resistant Organisms: None Reported Past Surgical History: Orthopedic Surgery Additional Past Surgical History / Comment(s): ORIF left hip 04/22/24,bone spurs Past Anesthesia/Blood Transfusion Reactions: No Reported Reaction Additional Past Anesthesia/Blood Transfusion Reaction / Comm: no hx blood transfusions Past Psychological History: No Psychological Hx Reported Smoking Status: Former smoker - Past Family History Mother Family Medical History: No Reported History Medications and Allergies Home Medications Medication Instructions Recorded Confirmed Type Zolpidem [Ambien] 10 mg PO HS 05/03/15 08/19/24 History ALPRAZolam [Xanax] 0.25 mg PO BID PRN 07/12/24 08/19/24 History Alendronate Sodium [Fosamax] 70 mg PO [place]WE[place]Y 07/12/24 08/19/24 History Ergocalciferol (Vitamin D2) 1,250 mcg PO Q14D 07/12/24 08/19/24 History [Drisdol (50,000 Iu)] Multivitamins, Thera [Multivitamin] 1 tab PO DAILY #30 tablet 07/14/24 08/19/24 Rx HYDROcodone/APAP 7.5-325MG [[place] 1 tab PO Q6H PRN 08/19/24 08/19/24 History 7.5-325] Megestrol [Megace] 400 mg PO DAILY PRN 08/19/24 08/19/24 History Omeprazole 20 mg PO DAILY 08/19/24 08/19/24 History Potassium Chloride ER [K-Dur 10] 10 meq PO DAILY 08/19/24 08/19/24 History Allergies Allergy/AdvReac Type Severity Reaction Status Date / Time No Known Allergies Allergy Verified 08/19/24 21:15 Physical Exam Vitals: Vital Signs Temp Pulse Resp BP Pulse Ox 08/20/24 12:45 122 H 20 110/60 95 08/20/24 11:05 126 H 22 08/20/24 07:20 118 H 20 106/72 98 08/20/24 05:00 115 H 20 125/80 08/20/24 03:00 112 H 24 97/67 97 08/20/24 00:00 117 H 20 103/66 99 08/19/24 22:00 134 H 20 106/65 94 L 08/19/24 21:30 126 H 08/19/24 21:09 124 H 08/19/24 20:18 128 H 22 108/76 98 08/19/24 19:00 97.7 F 139 H 32 H 140/66 96 Intake and Output 08/19/24 08/20/24 08/20/24 22:59 06:59 14:59 Output Total 257 Balance -257 Output: Post Void Residual 257 Other: Weight 40.823 kg GENERAL DESCRIPTION: Elderly female lying in bed, no distress. No tachypnea or accessory muscle of respiration use. HEENT: Shows Pallor , no scleral icterus. Oral mucous membrane is dry. NECK: Trachea central, no thyromegaly. LUNGS: Unlabored breathing. Clear to auscultation anteriorly. No wheeze or crackle. HEART: S1, S2, regular rate and rhythm. No loud murmur ABDOMEN: Soft, mild tenderness EXTREMITIES: No edema of feet. SKIN: No rash, no masses palpable. NEUROLOGICAL: The patient is awake, alert, oriented x3, mood and affect normal. Results CBC & Chem 7: 08/21/24 06:21 08/21/24 06:21 Labs: Abnormal Lab Results - Last 24 Hours (Table) 08/19/24 08/19/24 08/19/24 Range/Units 19:59 19:59 19:59 WBC (4.50-10.00) X 10*3/uL RBC 3.46 L (3.80-5.40) m/uL Hgb (12.0-15.0) g/dL Hct (37.2-46.3) % MCV 107.2 H D (80.0-100.0) fL MCH (27.0-32.0) pg MCHC (32.0-37.0) g/dL Plt Count 607 H (150-450) k/uL Immature Gran # (0.00-0.04) X 10*3/uL Neutrophils # (1.80-7.70) X 10*3/uL Eosinophils # (0.04-0.35) X 10*3/uL Metamyelocytes # (Man) 0.06 H (0) k/uL Myelocytes # (Manual) 0.06 H (0) k/uL Macrocytosis (manual) (None Seen) PT 13.7 H (10.0-12.5) sec INR 1.3 H (<1.2) Potassium (3.5-5.5) mmol/L Chloride 108 H (98-107) mmol/L Carbon Dioxide 7 L* (22-30) mmol/L Anion Gap (4.00-12.00) mmol/L Est GFR (CKD-EPI) (>=60) Glucose 220 H (74-99) mg/dL Plasma Lactic Acid Quintin (0.7-2.0) mmol/L Calcium 7.8 L (8.4-10.2) mg/dL Magnesium (1.5-2.4) mg/dL AST 41 H (14-36) U/L Alkaline Phosphatase 134 H (38-126) U/L Troponin I (0.000-0.034) ng/mL Albumin 3.2 L (3.5-5.0) g/dL Globulin (1.6-3.3) g/dL Albumin/Globulin Ratio (1.60-3.17) Ratio Lipase 18 L (23-300) U/L Urine Appearance (Clear) Urine Protein (Negative) Ur Leukocyte Esterase (Negative) Urine WBC (0-5) /hpf Amorphous Sediment (None) /hpf Urine Bacteria (None) /hpf Hyaline Casts (0-2) /lpf Urine Mucus (None) /hpf 08/19/24 08/19/24 08/20/24 Range/Units 19:59 19:59 00:05 WBC (4.50-10.00) X 10*3/uL RBC (3.80-5.40) m/uL Hgb (12.0-15.0) g/dL Hct (37.2-46.3) % MCV (80.0-100.0) fL MCH (27.0-32.0) pg MCHC (32.0-37.0) g/dL Plt Count (150-450) k/uL Immature Gran # (0.00-0.04) X 10*3/uL Neutrophils # (1.80-7.70) X 10*3/uL Eosinophils # (0.04-0.35) X 10*3/uL Metamyelocytes # (Man) (0) k/uL Myelocytes # (Manual) (0) k/uL Macrocytosis (manual) (None Seen) PT (10.0-12.5) sec INR (<1.2) Potassium (3.5-5.5) mmol/L Chloride (98-107) mmol/L Carbon Dioxide (22-30) mmol/L Anion Gap (4.00-12.00) mmol/L Est GFR (CKD-EPI) (>=60) Glucose (74-99) mg/dL Plasma Lactic Acid Quintin 11.1 H* 8.1 H* (0.7-2.0) mmol/L Calcium (8.4-10.2) mg/dL Magnesium (1.5-2.4) mg/dL AST (14-36) U/L Alkaline Phosphatase (38-126) U/L Troponin I 0.253 H* (0.000-0.034) ng/mL Albumin (3.5-5.0) g/dL Globulin (1.6-3.3) g/dL Albumin/Globulin Ratio (1.60-3.17) Ratio Lipase (23-300) U/L Urine Appearance (Clear) Urine Protein (Negative) Ur Leukocyte Esterase (Negative) Urine WBC (0-5) /hpf Amorphous Sediment (None) /hpf Urine Bacteria (None) /hpf Hyaline Casts (0-2) /lpf Urine Mucus (None) /hpf 08/20/24 08/20/24 08/20/24 Range/Units 03:35 06:36 06:37 WBC 14.97 H (4.50-10.00) X 10*3/uL RBC 3.47 L (3.80-5.40) m/uL Hgb 11.5 L (12.0-15.0) g/dL Hct 36.8 L (37.2-46.3) % MCV 106.1 H (80.0-100.0) fL MCH 33.1 H (27.0-32.0) pg MCHC 31.3 L (32.0-37.0) g/dL Plt Count (150-450) k/uL Immature Gran # 0.08 H (0.00-0.04) X 10*3/uL Neutrophils # 12.11 H (1.80-7.70) X 10*3/uL Eosinophils # 0 L (0.04-0.35) X 10*3/uL Metamyelocytes # (Man) (0) k/uL Myelocytes # (Manual) (0) k/uL Macrocytosis (manual) 2+ A (None Seen) PT (10.0-12.5) sec INR (<1.2) Potassium (3.5-5.5) mmol/L Chloride (98-107) mmol/L Carbon Dioxide (22-30) mmol/L Anion Gap (4.00-12.00) mmol/L Est GFR (CKD-EPI) (>=60) Glucose (74-99) mg/dL Plasma Lactic Acid Quintin 7.6 H* (0.7-2.0) mmol/L Calcium (8.4-10.2) mg/dL Magnesium (1.5-2.4) mg/dL AST (14-36) U/L Alkaline Phosphatase (38-126) U/L Troponin I (0.000-0.034) ng/mL Albumin (3.5-5.0) g/dL Globulin (1.6-3.3) g/dL Albumin/Globulin Ratio (1.60-3.17) Ratio Lipase (23-300) U/L Urine Appearance Cloudy H (Clear) Urine Protein 1+ H (Negative) Ur Leukocyte Esterase Small H (Negative) Urine WBC 14 H (0-5) /hpf Amorphous Sediment Rare H (None) /hpf Urine Bacteria Many H (None) /hpf Hyaline Casts 39 H (0-2) /lpf Urine Mucus Rare H (None) /hpf 08/20/24 08/20/24 08/20/24 Range/Units 06:37 06:37 10:25 WBC (4.50-10.00) X 10*3/uL RBC (3.80-5.40) m/uL Hgb (12.0-15.0) g/dL Hct (37.2-46.3) % MCV (80.0-100.0) fL MCH (27.0-32.0) pg MCHC (32.0-37.0) g/dL Plt Count (150-450) k/uL Immature Gran # (0.00-0.04) X 10*3/uL Neutrophils # (1.80-7.70) X 10*3/uL Eosinophils # (0.04-0.35) X 10*3/uL Metamyelocytes # (Man) (0) k/uL Myelocytes # (Manual) (0) k/uL Macrocytosis (manual) (None Seen) PT (10.0-12.5) sec INR (<1.2) Potassium 3.4 L (3.5-5.5) mmol/L Chloride (98-107) mmol/L Carbon Dioxide 13.5 L (22-30) mmol/L Anion Gap 21.50 H (4.00-12.00) mmol/L Est GFR (CKD-EPI) 53 L (>=60) Glucose 139 H (74-99) mg/dL Plasma Lactic Acid Quintin 7.9 H* 8.0 H* (0.7-2.0) mmol/L Calcium 7.6 L (8.4-10.2) mg/dL Magnesium 1.1 L (1.5-2.4) mg/dL AST 40 H (14-36) U/L Alkaline Phosphatase (38-126) U/L Troponin I (0.000-0.034) ng/mL Albumin 2.6 L (3.5-5.0) g/dL Globulin 3.8 H (1.6-3.3) g/dL Albumin/Globulin Ratio 0.68 L (1.60-3.17) Ratio Lipase (23-300) U/L Urine Appearance (Clear) Urine Protein (Negative) Ur Leukocyte Esterase (Negative) Urine WBC (0-5) /hpf Amorphous Sediment (None) /hpf Urine Bacteria (None) /hpf Hyaline Casts (0-2) /lpf Urine Mucus (None) /hpf 12//24 Range/Units 11:39 WBC (4.50-10.00) X 10*3/uL RBC (3.80-5.40) m/uL Hgb (12.0-15.0) g/dL Hct (37.2-46.3) % MCV (80.0-100.0) fL MCH (27.0-32.0) pg MCHC (32.0-37.0) g/dL Plt Count (150-450) k/uL Immature Gran # (0.00-0.04) X 10*3/uL Neutrophils # (1.80-7.70) X 10*3/uL Eosinophils # (0.04-0.35) X 10*3/uL Metamyelocytes # (Man) (0) k/uL Myelocytes # (Manual) (0) k/uL Macrocytosis (manual) (None Seen) PT (10.0-12.5) sec INR (<1.2) Potassium (3.5-5.5) mmol/L Chloride (98-107) mmol/L Carbon Dioxide (22-30) mmol/L Anion Gap (4.00-12.00) mmol/L Est GFR (CKD-EPI) (>=60) Glucose (74-99) mg/dL Plasma Lactic Acid Quintin (0.7-2.0) mmol/L Calcium (8.4-10.2) mg/dL Magnesium (1.5-2.4) mg/dL AST (14-36) U/L Alkaline Phosphatase (38-126) U/L Troponin I 1.800 H* (0.000-0.034) ng/mL Albumin (3.5-5.0) g/dL Globulin (1.6-3.3) g/dL Albumin/Globulin Ratio (1.60-3.17) Ratio Lipase (23-300) U/L Urine Appearance (Clear) Urine Protein (Negative) Ur Leukocyte Esterase (Negative) Urine WBC (0-5) /hpf Amorphous Sediment (None) /hpf Urine Bacteria (None) /hpf Hyaline Casts (0-2) /lpf Urine Mucus (None) /hpf Assessment and Plan (1) Sepsis Current Visit: Yes Status: Acute Code(s): A41.9 - SEPSIS, UNSPECIFIED ORGAN ISM SNOMED Code(s): 31649321 (2) Urinary tract infection Current Visit: No Status: Acute Code(s): N39.0 - URINARY TRACT INFECTION, SITE NOT SPECIFIED SNOMED Code(s): 32324099 Plan: 1patient with sepsis in this patient who did have significant elevated white count tachycardia elevated lactic acid source is likely renal in this patient recently has been diagnosed with a right ureteropelvic junction obstruction with right-sided hydronephrosis urine culture that was positive for E. coli 2-await urology evaluation for further surgical workup for the right kidney lesion which is likely infected and deep culture 3-patient is broadly covered with the cefepime and vancomycin while waiting for the culture to finalize We will follow on clinical condition and cultures to further adjust medication if needed Thank you for this consultation we will follow the patient along with you Dictation was produced using [employer] dictation software. please excuse any grammatical, word or spelling errors. Time with Patient: Greater than 30
[2024-08-21] MEDS: POTASSIUM CHLORIDE ER 10 MEQ TAB.ER.PRT PO SCH (09:51)
[2024-08-21] MEDS ORDERED: Potassium Replacement Protocol 1 EACH MISC MISCELLANE PRN (10:00)
[2024-08-21] MEDS ORDERED: Magnesium Replacement Protocol 1 EACH MISC MISCELLANE PRN (10:00)
--- NOTE | 2024-08-21 10:33 | P.CRDCN ---
History of Present Illness Consult date: 08/21/24 Reason for Consult (text): Elevated troponin History of present illness: This is Tony Juares NP, I'm dictating on behalf of Dr. Lopez's H&P and A&P The patient was interviewed and examined. HPI: Patient is a pleasant 74-year-old female with a past medical history that includes kidney disease who presented to the hospital with complaints of abdominal pain. She was reporting severe abdominal pain with difficulty catching her breath with severe history of COPD. We were consulted for elevated troponins. Prior to arriving to see the patient on the cardiac floor, she went into respiratory distress, and was transferred to the ICU. Patient apparently aspirated on some water, and became quite dyspneic. They were attempting to complete an echocardiogram, and the heart rate was noted to be too fast. Upon examination this morning the patient appears to be in no acute distress. Lungs demonstrate crackles throughout. Heart rate is still elevated around 116. ROS: [No fever, chills, or rigors] [no cough, phlegm, or expectoration] [no nausea, vomiting, or diarrhea] [no hematuria, dysuria] [no musculoskelatal complaints] [no strokes or seizures] [no skin lesions] EXAMINATION: GENERAL: Well-appearing, well-nourished and in no acute distress. NECK: Supple without JVD or thyromegaly. LUNGS: Breath sounds demonstrate crackles to auscultation bilaterally. Respiration equal and unlabored. No wheezes, rales or rhonchi. HEART: Accelerated rate and regular rhythm without murmurs, rubs or gallops. S1 and S2 heard. EXTREMITIES: Normal range of motion, no edema. No clubbing or cyanosis. Peripheral pulses intact and strong. 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 Interval development of small volume free fluid within the pelvis, this may be related to impression #1 and represent rupture of one of the cystic components or urine leakage, stable normal compression deformities of the thoracic and lumbar spine. Chest x-ray dated 08/19/2024 demonstrates findings concerning for right lower lung pneumonia. Chest x-ray dated 08/21/2024 demonstrates persistent right basilar acute infiltr ate and/or atelectasis. New left basilar acute infiltrate and/or atelectasis noted. VITALS: Temp 97.8, pulse 137, respirations 25, blood pressure 124/73, O2 saturation 100% on 15 L nonrebreather. IMPRESSION: 1. Acute hypoxic respiratory failure 2. Pneumonia 3. Elevated troponin, likely secondary to hypoxia 4. Sinus tachycardia PLAN: Start metoprolol 2.5 mg IV push every 8 hours, hold for systolic less than 100. Once heart rate is better controlled, obtain echocardiogram. Further recommendations based on patient's clinical course. Thank you for the consult and allowing us to participate in the care of this patient. Past Medical History Past Medical History: Renal Disease Additional Past Medical History / Comment(s): hospitalized last week rt kidney not working and rt flank area , started 3 weeks ago had increased fatigue,no apetite,fx left hip Apr 2024 History of Any Multi-Drug Resistant Organisms: None Reported Past Surgical History: Orthopedic Surgery Additional Past Surgical History / Comment(s): ORIF left hip 04/22/24,bone spurs Past Anesthesia/Blood Transfusion Reactions: No Reported Reaction Additional Past Anesthesia/Blood Transfusion Reaction / Comment(s): no hx blood transfusions Past Psychological History: No Psychological Hx Reported Smoking Status: Former smoker - Past Family History Mother Family Medical History: No Reported History Additional Family Medical History / Comment(s): breast cancer Medications and Allergies Home Medications Medication Instructions Recorded Confirmed Type Zolpidem [Ambien] 10 mg PO HS 05/03/15 08/19/24 History ALPRAZolam [Xanax] 0.25 mg PO BID PRN 07/12/24 08/19/24 History Alendronate Sodium [Fosamax] 70 mg PO [place]WE[place] 07/12/24 08/19/24 History Ergocalciferol (Vitamin D2) 1,250 mcg PO Q14D 07/12/24 08/19/24 History [Drisdol (50,000 Iu)] Multivitamins, Thera [Multivitamin] 1 tab PO DAILY #30 tablet 07/14/24 08/19/24 Rx HYDROcodone/APAP 7.5-325MG [[place] 1 tab PO Q6H PRN 08/19/24 08/19/24 History 7.5-325] Megestrol [Megace] 400 mg PO DAILY PRN 08/19/24 08/19/24 History Omeprazole 20 mg PO DAILY 08/19/24 08/19/24 History Potassium Chloride ER [K-Dur 10] 10 meq PO DAILY 08/19/24 08/19/24 History Allergies Allergy/AdvReac Type Severity Reaction Status Date / Time No Known Allergies Allergy Verified 08/19/24 21:15 Physical Exam Vitals: Vital Signs Temp Pulse Pulse Resp BP BP Pulse Ox 08/21/24 09:43 99 08/21/24 08:01 137 H 25 H 124/73 100 08/21/24 07:50 99 08/21/24 07:49 99 08/21/24 07:30 97.8 F 138 H 32 H 126/93 79 L 08/21/24 04:40 98.6 F 116 H 18 101/64 97 08/21/24 01:51 121 H 08/21/24 01:36 98.1 F 121 H 20 100/62 100 08/21/24 00:00 122 H 18 107/67 97 08/20/24 23:30 149 H 21 96/80 98 08/20/24 23:00 141 H 12 126/77 95 08/20/24 22:00 131 H 23 129/76 96 08/20/24 19:48 122 H 18 114/86 99 08/20/24 16:00 122 H 20 105/80 95 08/20/24 13:58 123 H 22 118/79 96 08/20/24 12:45 122 H 20 110/60 95 08/20/24 11:05 126 H 22 Intake and Output 08/20/24 08/21/24 08/21/24 22:59 06:59 14:59 Intake Total 920 Balance 920 Intake: Intake, IV Titration 920 Amount Cefepime 2 gm In Sodium 100 Chloride 0.9% 100 ml @ 25 mls/hr IVPB Q12H JESSICA Rx# :[id number] Dextrose 5%-0.45% NaCl 1, 300 000 ml @ 75 mls/hr IV . [id number] JESSICA with Sodium Bicarb (1 Meq/ml) 150 ml Rx#:[id number] Heparin Sod,Pork in 0.45% 20 NaCl 25,000 unit In 0.45 % NaCl 1 250ml.bag @ 12 UNITS/KG/HR 4.899 mls/hr IV .Q24H JESSICA Rx#: [id number] Sodium Chloride 0.9% 500 500 ml 500 ml @ 999 mls/hr IV .Q31M ONE Rx#:[id number] Other: Voiding Method Indwelling Catheter Weight 40.823 kg Results 08/21/24 06:21 08/21/24 06:21 Cardiac Enzymes 08/20/24 08/20/24 08/20/24 Range/Units 06:37 11:39 14:47 AST 40 H (13-35) U/L Troponin I 1.800 H* 1.180 H* (0.000-0.034) ng/mL 08/21/24 08/21/24 Range/Units 06:21 08:08 AST 35 (13-35) U/L Troponin I 0.608 H* (0.000-0.034) ng/mL Coagulation 08/20/24 08/20/24 08/21/24 Range/Units 13:21 18:34 03:29 PT 16.3 H 15.5 H (10.0-12.5) sec APTT 29.6 40.7 H (22.0-30.0) sec 08/21/24 Range/Units 06:21 PT (10.0-12.5) sec APTT 43.6 H (22.0-30.0) sec CBC 08/20/24 08/20/24 08/21/24 Range/Units 06:37 13:21 03:29 WBC 14.97 H 20.3 H 17.4 H (4.50-10.00) X 10*3/uL RBC 3.47 L 3.00 L 2.79 L (4.10-5.20) X 10*6/uL Hgb 11.5 L 10.0 L D 9.4 L (12.0-15.0) g/dL Hct 36.8 L 32.5 L 29.3 L (37.2-46.3) % Plt Count 431 427 335 (140-440) X 10*3/uL 08/21/24 Range/Units 06:21 WBC 15.6 H (4.50-10.00) X 10*3/uL RBC 2.80 L (4.10-5.20) X 10*6/uL Hgb 9.3 L (12.0-15.0) g/dL Hct 29.2 L (37.2-46.3) % Plt Count 320 (140-440) X 10*3/uL Comprehensive Metabolic Panel 08/20/24 08/21/24 Range/Units 06:37 06:21 Sodium 140 134 L (135-145) mmol/L Potassium 3.4 L 3.6 (3.5-5.5) mmol/L Chloride 105 106 (96-109) mmol/L Carbon Dioxide 13.5 L 16 L (21.6-31.8) mmol/L BUN 17.7 28 H (9.0-27.0) mg/dL Creatinine 1.1 1.16 H (0.6-1.5) mg/dL Glucose 139 H 160 H (70-110) mg/dL Calcium 7.6 L 6.9 L (8.7-10.3) mg/dL AST 40 H 35 (13-35) U/L ALT 21 19 (8-44) U/L Alkaline Phosphatase 94 94 (41-126) U/L Total Protein 6.4 5.3 L (6.2-8.2) g/dL Albumin 2.6 L 2.1 L (3.8-4.9) g/dL Current Medications Generic Name Dose Route Start Last Admin Trade Name Freq PRN Reason Stop Dose Admin Alprazolam 0.25 mg 08/20/24 17:17 08/20/24 20:29 Alprazolam 0.25 Mg Tab PO 0.25 mg BID PRN Administration Anxiety Heparin Sodium (Porcine) 0 unit 08/20/24 12:40 Heparin Sodium 1,000 Un/Ml (10ml Vl) IV PER PROTOCOL PRN Low PTT Protocol Hydromorphone HCl 1 mg 08/19/24 20:29 08/20/24 15:43 Hydromorphone 1 Mg/Ml 1 Ml Syringe IVP 1 mg Q3HR PRN Administration Severe Pain (Scale 7 to 10) Heparin Sodium/Sodium Chloride 250 mls @ 4.899 mls/hr 08/20/24 12:45 08/20/24 13:40 25,000 unit/ Sodium Chloride IV 12 units/kg/hr .Q24H JESSICA 4.899 mls/hr Administration Protocol 12 UNITS/KG/HR Sodium Bicarbonate 150 ml/ 1,150 mls @ 50 mls/hr 08/20/24 13:30 08/20/24 13:49 Dextrose/Sodium Chloride IV 75 mls/hr .Q23H JESSICA Administration Cefepime HCl 2 gm/ Sodium 100 mls @ 25 mls/hr 08/20/24 14:00 08/21/24 01:21 Chloride IVPB 25 mls/hr Q12H JESSICA Administration Protocol Vancomycin HCl 750 mg/ Sodium 250 mls @ 125 mls/hr 08/21/24 12:00 Chloride IVPB 08/21/24 13:59 ONCE ONE Potassium Chloride 10 meq/ IV 100 mls @ 100 mls/hr 08/21/24 10:15 Solution IVPB 08/21/24 12:14 Q1H JESSICA Protocol Magnesium Sulfate/Dextrose 1 100 mls @ 100 mls/hr 08/21/24 10:15 gm/ IV Solution IVPB 08/21/24 12:14 Q1H JESSICA Protocol Miscellaneous Information 1 each 08/20/24 12:39 Vancomycin Iv Per Pharmacy 1 Each Misc MISCELLANE DIRECTED PRN Per Protocol Protocol Miscellaneous Information 1 each 08/21/24 10:00 Potassium Replacement Protocol 1 Each Misc MISCELLANE DAILY PRN Per Protocol Miscellaneous Information 1 each 08/21/24 10:00 Magnesium Replacement Protocol 1 Each Misc MISCELLANE DAILY PRN Per Protocol Protocol Naloxone HCl 0.2 mg 08/19/24 20:29 Naloxone 0.4 Mg/Ml 1 Ml Vial IV Q2M PRN Opioid Reversal Ondansetron HCl 4 mg 08/19/24 20:29 08/20/24 15:44 Ondansetron 4 Mg/2 Ml Vial IVP 4 mg Q8HR PRN Administration Nausea And Vomiting Pantoprazole Sodium 40 mg 08/20/24 09:00 08/20/24 08:44 Pantoprazole 40 Mg/10 Ml Vial IV 40 mg DAILY JESSICA Administration Potassium Chloride 10 meq 08/21/24 09:00 08/21/24 09:51 Potassium Chloride Er 10 Meq Tab.Er.Prt PO Not Given DAILY JESSICA Zolpidem Tartrate 5 mg 08/20/24 20:55 08/21/24 01:21 Zolpidem 5 Mg Tab PO 5 mg HS PRN Administration Insomnia Intake and Output 08/20/24 08/21/24 08/21/24 22:59 06:59 14:59 Intake Total 920 Balance 920 Intake: Intake, IV Titration 920 Amount Cefepime 2 gm In Sodium 100 Chloride 0.9% 100 ml @ 25 mls/hr IVPB Q12H JESSICA Rx# :[id number] Dextrose 5%-0.45% NaCl 1, 300 000 ml @ 75 mls/hr IV . [id number] JESSICA with Sodium Bicarb (1 Meq/ml) 150 ml Rx#:[id number] Heparin Sod,Pork in 0.45% 20 NaCl 25,000 unit In 0.45 % NaCl 1 250ml.bag @ 12 UNITS/KG/HR 4.899 mls/hr IV .Q24H JESSICA Rx#: [id number] Sodium Chloride 0.9% 500 500 ml 500 ml @ 999 mls/hr IV .Q31M ONE Rx#:[id number] Other: Voiding Method Indwelling Catheter Weight 40.823 kg 08/21/24 06:21 08/21/24 06:21
[2024-08-21] MEDS: MAGNESIUM SULFATE-D5W PMX 1 GM in DEXTROSE/WATER 1 100ML.BAG IVPB SCH (10:58)
[2024-08-21] MEDS: POTASSIUM CHLORIDE 10 MEQ in WATER FOR INJECTION 1 100ML.BAG IVPB SCH (10:59)
[2024-08-21] MEDS: METOPROLOL TARTRATE 5 MG/5 ML VIAL IVP SCH (11:17)
[2024-08-21 11:26] LABS: Glucose,Whole Blood 152 mg/dL (70-110)
--- NOTE | 2024-08-21 11:28 | P.CNPUL ---
History of Present Illness Consult date: 08/21/24 Requesting physician: Popeye Rodriguez Reason for consult: dyspnea, COPD, hypoxemia, pneumonia, abnormal CXR/CT Chief complaint: Abdominal pain, hydronephrosis, aspiration. History of present illness: Pulmonary consult dated August 21, 2024. 74-year-old female who was initially seen in the emergency department, on August 19. She apparently came in complaining of abdominal pain. The pain was apparently severe, and she had difficulty catching her breath. The patient was seen by the ER physician, and admitted with a diagnosis of intractable abdominal pain, and mental status changes. This morning, a rapid response was called on this team, and my ICU charge nurse, went to the patient, to see her. The patient apparently was not really having any abdominal pain this morning, but rather, it likely aspirated according to the charge nurse. The patient was seen by the primary service, and because the patient was tachycardic, and was in significant distress, the patient was transferred down to the intensive care unit, for further monitoring and management. The patient is seen in the ICU, room 266. She is currently on a nonrebreather. Her heart rate is 126, her saturations are 100%, and her respiratory symptoms are in the low 30s. She seems a bit more settled. She has got IV heparin running, and D5 with half- normal saline with 1 amp of sodium bicarb and at 50 cc an hour. She is not having any abdominal pain at this time. She was given vancomycin and cefepime. Current labs include a white count of 15.6, hemoglobin 9.3, hematocrit 29.2, and a platelet count of 320,000. The patient's PTT is 43.6. Blood gases show pO2 of 147, pCO2 of 24, and a pH of 7.41. These blood gases are consistent with a mixed acid-base disturbance, including a combined respiratory alkalosis, metabolic acidosis. Looking at her electrolyte profile, she appears to have a nonanion gap metabolic acidosis, as her sodium is 134, potassium 3.6, chlorides 106, bicarbonate concentration 16, anion gap 12, BUN 28, creatinine 1.16. The patient's lactic acid has jumped up to 4.9 from 3. Glucose is 175. Calcium 6.9. Troponin 0.608. Radiographic studies suggest the possibility of right lower lobe pneumonia. Review of Systems REVIEW OF SYSTEMS: CONSTITUTIONAL: Anxiety. NEUROLOGIC: [ Negative.] HEENT: [ Negative.] CARDIAC: Tachycardia. PULMONARY: Shortness of breath. GI: Abdominal pain. : [Negative.] RHEUMATOLOGIC: [ Negative.] IMMUNOLOGIC: [ Negative.] ENDOCRINE: [Negative. ] DERMATOLOGIC: [Negative.] Past Medical History Past Medical History: Renal Disease Additional Past Medical History / Comment(s): hospitalized last week rt kidney not working and rt flank area , started 3 weeks ago had increased fatigue,no apetite,fx left hip Apr 2024 History of Any Multi-Drug Resistant Organisms: None Reported Past Surgical History: Orthopedic Surgery Additional Past Surgical History / Comment(s): ORIF left hip 04/22/24,bone spurs Past Anesthesia/Blood Transfusion Reactions: No Reported Reaction Additional Past Anesthesia/Blood Transfusion Reaction / Comment(s): no hx blood transfusions Past Psychological History: No Psychological Hx Reported Smoking Status: Former smoker - Past Family History Mother Family Medical History: No Reported History Additional Family Medical History / Comment(s): breast cancer Medications and Allergies Home Medications Medication Instructions Recorded Confirmed Type Zolpidem [Ambien] 10 mg PO HS 05/03/15 08/19/24 History ALPRAZolam [Xanax] 0.25 mg PO BID PRN 07/12/24 08/19/24 History Alendronate Sodium [Fosamax] 70 mg PO [place] 07/12/24 08/19/24 History Ergocalciferol (Vitamin D2) 1,250 mcg PO Q14D 07/12/24 08/19/24 History [Drisdol (50,000 Iu)] Multivitamins, Thera [Multivitamin] 1 tab PO DAILY #30 tablet 07/14/24 08/19/24 Rx HYDROcodone/APAP 7.5-325MG [Natoma 1 tab PO Q6H PRN 08/19/24 08/19/24 History 7.5-325] Megestrol [Megace] 400 mg PO DAILY PRN 08/19/24 08/19/24 History Omeprazole 20 mg PO DAILY 08/19/24 08/19/24 History Potassium Chloride ER [K-Dur 10] 10 meq PO DAILY 08/19/24 08/19/24 History Allergies Allergy/AdvReac Type Severity Reaction Status Date / Time No Known Allergies Allergy Verified 08/19/24 21:15 Physical Exam Osteopathic Statement: *. No significant issues noted on an osteopathic structural exam other than those noted in the History and Physical/Consult. Vitals: Vital Signs Temp Pulse Pulse Resp BP BP Pulse Ox 08/21/24 09:43 99 08/21/24 08:01 137 H 25 H 124/73 100 08/21/24 07:50 99 08/21/24 07:49 99 08/21/24 07:30 97.8 F 138 H 32 H 126/93 79 L 08/21/24 04:40 98.6 F 116 H 18 101/64 97 08/21/24 01:51 121 H 08/21/24 01:36 98.1 F 121 H 20 100/62 100 08/21/24 00:00 122 H 18 107/67 97 08/20/24 23:30 149 H 21 96/80 98 08/20/24 23:00 141 H 12 126/77 95 08/20/24 22:00 131 H 23 129/76 96 08/20/24 19:48 122 H 18 114/86 99 08/20/24 16:00 122 H 20 105/80 95 08/20/24 13:58 123 H 22 118/79 96 08/20/24 12:45 122 H 20 110/60 95 08/20/24 11:05 126 H 22 Intake and Output 08/20/24 08/21/24 08/21/24 22:59 06:59 14:59 Intake Total 920 Balance 920 Intake: Intake, IV Titration 920 Amount Cefepime 2 gm In Sodium 100 Chloride 0.9% 100 ml @ 25 mls/hr IVPB Q12H JESSICA Rx# :[id number] Dextrose 5%-0.45% NaCl 1, 300 000 ml @ 75 mls/hr IV . [id number] JESSICA with Sodium Bicarb (1 Meq/ml) 150 ml Rx#:[id number] Heparin Sod,Pork in 0.45% 20 NaCl 25,000 unit In 0.45 % NaCl 1 250ml.bag @ 12 UNITS/KG/HR 4.899 mls/hr IV .Q24H JESSICA Rx#: [id number] Sodium Chloride 0.9% 500 500 ml 500 ml @ 999 mls/hr IV .Q31M ONE Rx#:[id number] Other: Voiding Method Indwelling Catheter Weight 40.823 kg Mildly tachypneic, currently on a nonrebreather mask, mild conversational dyspnea, anxious. HEENT examination is grossly unremarkable. Mucous membranes are moist. No oral lesions. Neck supple. Full range of motion. No adenopathy thyromegaly or neck vein distention. Cardiovascular examination reveals regular rhythm rate. S1-S2 normal. No S3 or S4. No discernible murmur noted. Heart rate 125 bpm. Lungs reveal scattered rhonchi and wheezes. No crackles. Breath sounds equal bilaterally. Abdomen soft and nontender. No masses. The patient is not having any abdominal pain. Extremities are intact. No cyanosis clubbing or edema. Skin is without rash or lesion. Neurologic examination is brief but nonfocal. Results - Laboratory Findings CBC and BMP: 08/21/24 06:21 08/21/24 06:21 ABG ABG pH 7.41 (7.35-7.45) 08/21/24 07:57 ABG pCO2 24 mmHg (35-45) L 08/21/24 07:57 ABG pO2 147 mmHg (83-108) H 08/21/24 07:57 ABG O2 Saturation 99.9 % (94-97) H 08/21/24 07:57 PT/INR, D-dimer PT 15.5 sec (10.0-12.5) H 08/21/24 03:29 INR 1.5 (<1.2) H 08/21/24 03:29 D-Dimer 6.21 mg/L FEU (<0.60) H 08/21/24 00:13 Abnormal lab findings: Abnormal Labs 08/19/24 08/19/24 08/19/24 19:59 19:59 19:59 WBC RBC 3.46 L Hgb Hct MCV 107.2 H D MCH MCHC Plt Count 607 H Immature Gran # Neutrophils # Neutrophils # (Manual) Eosinophils # Metamyelocytes # (Man) 0.06 H Myelocytes # (Manual) 0.06 H Macrocytosis Macrocytosis (manual) PT 13.7 H INR 1.3 H APTT D-Dimer ABG pCO2 ABG pO2 ABG HCO3 ABG Total CO2 ABG O2 Saturation Hemoglobin Sodium Potassium Chloride 108 H Carbon Dioxide 7 L* Anion Gap BUN Creatinine Est GFR (CKD-EPI) Glucose 220 H POC Glucose (mg/dL) Plasma Lactic Acid Quintin Calcium 7.8 L Magnesium AST 41 H Alkaline Phosphatase 134 H Troponin I Total Protein Albumin 3.2 L Globulin Albumin/Globulin Ratio Lipase 18 L Urine Appearance Urine Protein Ur Leukocyte Esterase Urine WBC Amorphous Sediment Urine Bacteria Hyaline Casts Urine Mucus 08/19/24 08/19/24 08/20/24 19:59 19:59 00:05 WBC RBC Hgb Hct MCV MCH MCHC Plt Count Immature Gran # Neutrophils # Neutrophils # (Manual) Eosinophils # Metamyelocytes # (Man) Myelocytes # (Manual) Macrocytosis Macrocytosis (manual) PT INR APTT D-Dimer ABG pCO2 ABG pO2 ABG HCO3 ABG Total CO2 ABG O2 Saturation Hemoglobin Sodium Potassium Chloride Carbon Dioxide Anion Gap BUN Creatinine Est GFR (CKD-EPI) Glucose POC Glucose (mg/dL) Plasma Lactic Acid Quintin 11.1 H* 8.1 H* Calcium Magnesium AST Alkaline Phosphatase Troponin I 0.253 H* Total Protein Albumin Globulin Albumin/Globulin Ratio Lipase Urine Appearance Urine Protein Ur Leukocyte Esterase Urine WBC Amorphous Sediment Urine Bacteria Hyaline Casts Urine Mucus 08/20/24 08/20/24 08/20/24 03:35 06:36 06:37 WBC 14.97 H RBC 3.47 L Hgb 11.5 L Hct 36.8 L MCV 106.1 H MCH 33.1 H MCHC 31.3 L Plt Count Immature Gran # 0.08 H Neutrophils # 12.11 H Neutrophils # (Manual) Eosinophils # 0 L Metamyelocytes # (Man) Myelocytes # (Manual) Macrocytosis Macrocytosis (manual) 2+ A PT INR APTT D-Dimer ABG pCO2 ABG pO2 ABG HCO3 ABG Total CO2 ABG O2 Saturation Hemoglobin Sodium Potassium Chloride Carbon Dioxide Anion Gap BUN Creatinine Est GFR (CKD-EPI) Glucose POC Glucose (mg/dL) Plasma Lactic Acid Quintin 7.6 H* Calcium Magnesium AST Alkaline Phosphatase Troponin I Total Protein Albumin Globulin Albumin/Globulin Ratio Lipase Urine Appearance Cloudy H Urine Protein 1+ H Ur Leukocyte Esterase Small H Urine WBC 14 H Amorphous Sediment Rare H Urine Bacteria Many H Hyaline Casts 39 H Urine Mucus Rare H 08/20/24 08/20/24 08/20/24 06:37 06:37 10:25 WBC RBC Hgb Hct MCV MCH MCHC Plt Count Immature Gran # Neutrophils # Neutrophils # (Manual) Eosinophils # Metamyelocytes # (Man) Myelocytes # (Manual) Macrocytosis Macrocytosis (manual) PT INR APTT D-Dimer ABG pCO2 ABG pO2 ABG HCO3 ABG Total CO2 ABG O2 Saturation Hemoglobin Sodium Potassium 3.4 L Chloride Carbon Dioxide 13.5 L Anion Gap 21.50 H BUN Creatinine Est GFR (CKD-EPI) 53 L Glucose 139 H POC Glucose (mg/dL) Plasma Lactic Acid Quintin 7.9 H* 8.0 H* Calcium 7.6 L Magnesium 1.1 L AST 40 H Alkaline Phosphatase Troponin I Total Protein Albumin 2.6 L Globulin 3.8 H Albumin/Globulin Ratio 0.68 L Lipase Urine Appearance Urine Protein Ur Leukocyte Esterase Urine WBC Amorphous Sediment Urine Bacteria Hyaline Casts Urine Mucus 08/20/24 08/20/24 08/20/24 11:39 13:21 13:21 WBC 20.3 H RBC 3.00 L Hgb 10.0 L D Hct 32.5 L MCV 108.2 H MCH MCHC 30.8 L Plt Count Immature Gran # Neutrophils # Neutrophils # (Manual) 18.00 H Eosinophils # Metamyelocytes # (Man) 0.41 H Myelocytes # (Manual) Macrocytosis Marked A Macrocytosis (manual) PT 16.3 H INR 1.6 H APTT D-Dimer ABG pCO2 ABG pO2 ABG HCO3 ABG Total CO2 ABG O2 Saturation Hemoglobin Sodium Potassium Chloride Carbon Dioxide Anion Gap BUN Creatinine Est GFR (CKD-EPI) Glucose POC Glucose (mg/dL) Plasma Lactic Acid Quintin Calcium Magnesium AST Alkaline Phosphatase Troponin I 1.800 H* Total Protein Albumin Globulin Albumin/Globulin Ratio Lipase Urine Appearance Urine Protein Ur Leukocyte Esterase Urine WBC Amorphous Sediment Urine Bacteria Hyaline Casts Urine Mucus 08/20/24 08/20/24 08/20/24 13:21 14:47 16:14 WBC RBC Hgb Hct MCV MCH MCHC Plt Count Immature Gran # Neutrophils # Neutrophils # (Manual) Eosinophils # Metamyelocytes # (Man) Myelocytes # (Manual) Macrocytosis Macrocytosis (manual) PT INR APTT D-Dimer ABG pCO2 ABG pO2 ABG HCO3 ABG Total CO2 ABG O2 Saturation Hemoglobin Sodium Potassium Chloride Carbon Dioxide Anion Gap BUN Creatinine Est GFR (CKD-EPI) Glucose POC Glucose (mg/dL) Plasma Lactic Acid Quintin 8.8 H* 7.0 H* Calcium Magnesium AST Alkaline Phosphatase Troponin I 1.180 H* Total Protein Albumin Globulin Albumin/Globulin Ratio Lipase Urine Appearance Urine Protein Ur Leukocyte Esterase Urine WBC Amorphous Sediment Urine Bacteria Hyaline Casts Urine Mucus 08/20/24 08/20/24 08/20/24 18:34 20:14 23:37 WBC RBC Hgb Hct MCV MCH MCHC Plt Count Immature Gran # Neutrophils # Neutrophils # (Manual) Eosinophils # Metamyelocytes # (Man) Myelocytes # (Manual) Macrocytosis Macrocytosis (manual) PT INR APTT 40.7 H D-Dimer ABG pCO2 ABG pO2 ABG HCO3 ABG Total CO2 ABG O2 Saturation Hemoglobin Sodium Potassium Chloride Carbon Dioxide Anion Gap BUN Creatinine Est GFR (CKD-EPI) Glucose POC Glucose (mg/dL) Plasma Lactic Acid Quintin 6.0 H* 5.7 H* Calcium Magnesium AST Alkaline Phosphatase Troponin I Total Protein Albumin Globulin Albumin/Globulin Ratio Lipase Urine Appearance Urine Protein Ur Leukocyte Esterase Urine WBC Amorphous Sediment Urine Bacteria Hyaline Casts Urine Mucus 08/21/24 08/21/24 08/21/24 00:13 03:29 03:29 WBC 17.4 H RBC 2.79 L Hgb 9.4 L Hct 29.3 L MCV 105.2 H MCH MCHC Plt Count Immature Gran # Neutrophils # Neutrophils # (Manual) 14.60 H Eosinophils # Metamyelocytes # (Man) Myelocytes # (Manual) Macrocytosis Macrocytosis (manual) PT 15.5 H INR 1.5 H APTT D-Dimer 6.21 H ABG pCO2 ABG pO2 ABG HCO3 ABG Total CO2 ABG O2 Saturation Hemoglobin Sodium Potassium Chloride Carbon Dioxide Anion Gap BUN Creatinine Est GFR (CKD-EPI) Glucose POC Glucose (mg/dL) Plasma Lactic Acid Quintin Calcium Magnesium AST Alkaline Phosphatase Troponin I Total Protein Albumin Globulin Albumin/Globulin Ratio Lipase Urine Appearance Urine Protein Ur Leukocyte Esterase Urine WBC Amorphous Sediment Urine Bacteria Hyaline Casts Urine Mucus 08/21/24 08/21/24 08/21/24 03:29 06:21 06:21 WBC 15.6 H RBC 2.80 L Hgb 9.3 L Hct 29.2 L MCV 104.3 H MCH MCHC Plt Count Immature Gran # Neutrophils # 13.6 H Neutrophils # (Manual) Eosinophils # Metamyelocytes # (Man) Myelocytes # (Manual) Macrocytosis Macrocytosis (manual) PT INR APTT D-Dimer ABG pCO2 ABG pO2 ABG HCO3 ABG Total CO2 ABG O2 Saturation Hemoglobin Sodium 134 L Potassium Chloride Carbon Dioxide 16 L Anion Gap BUN 28 H Creatinine 1.16 H Est GFR (CKD-EPI) Glucose 160 H POC Glucose (mg/dL) Plasma Lactic Acid Quintin 4.3 H* Calcium 6.9 L Magnesium AST Alkaline Phosphatase Troponin I Total Protein 5.3 L Albumin 2.1 L Globulin Albumin/Globulin Ratio Lipase Urine Appearance Urine Protein Ur Leukocyte Esterase Urine WBC Amorphous Sediment Urine Bacteria Hyaline Casts Urine Mucus 08/21/24 08/21/24 08/21/24 06:21 06:21 07:29 WBC RBC Hgb Hct MCV MCH MCHC Plt Count Immature Gran # Neutrophils # Neutrophils # (Manual) Eosinophils # Metamyelocytes # (Man) Myelocytes # (Manual) Macrocytosis Macrocytosis (manual) PT INR APTT 43.6 H D-Dimer ABG pCO2 ABG pO2 ABG HCO3 ABG Total CO2 ABG O2 Saturation Hemoglobin Sodium Potassium Chloride Carbon Dioxide Anion Gap BUN Creatinine Est GFR (CKD-EPI) Glucose POC Glucose (mg/dL) 168 H Plasma Lactic Acid Quintin 3.0 H* Calcium Magnesium AST Alkaline Phosphatase Troponin I Total Protein Albumin Globulin Albumin/Globulin Ratio Lipase Urine Appearance Urine Protein Ur Leukocyte Esterase Urine WBC Amorphous Sediment Urine Bacteria Hyaline Casts Urine Mucus 08/21/24 08/21/24 08/21/24 07:57 08:08 08:08 WBC RBC Hgb Hct MCV MCH MCHC Plt Count Immature Gran # Neutrophils # Neutrophils # (Manual) Eosinophils # Metamyelocytes # (Man) Myelocytes # (Manual) Macrocytosis Macrocytosis (manual) PT INR APTT D-Dimer ABG pCO2 24 L ABG pO2 147 H ABG HCO3 15 L ABG Total CO2 16 L ABG O2 Saturation 99.9 H Hemoglobin 10.1 L Sodium Potassium Chloride Carbon Dioxide Anion Gap BUN Creatinine Est GFR (CKD-EPI) Glucose POC Glucose (mg/dL) Plasma Lactic Acid Quintin 4.9 H* Calcium Magnesium AST Alkaline Phosphatase Troponin I 0.608 H* Total Protein Albumin Globulin Albumin/Globulin Ratio Lipase Urine Appearance Urine Protein Ur Leukocyte Esterase Urine WBC Amorphous Sediment Urine Bacteria Hyaline Casts Urine Mucus 08/21/24 08:48 WBC RBC Hgb Hct MCV MCH MCHC Plt Count Immature Gran # Neutrophils # Neutrophils # (Manual) Eosinophils # Metamyelocytes # (Man) Myelocytes # (Manual) Macrocytosis Macrocytosis (manual) PT INR APTT D-Dimer ABG pCO2 ABG pO2 ABG HCO3 ABG Total CO2 ABG O2 Saturation Hemoglobin Sodium Potassium Chloride Carbon Dioxide Anion Gap BUN Creatinine Est GFR (CKD-EPI) Glucose POC Glucose (mg/dL) 175 H Plasma Lactic Acid Quintin Calcium Magnesium AST Alkaline Phosphatase Troponin I Total Protein Albumin Globulin Albumin/Globulin Ratio Lipase Urine Appearance Urine Protein Ur Leukocyte Esterase Urine WBC Amorphous Sediment Urine Bacteria Hyaline Casts Urine Mucus - Diagnostic Findings Chest x-ray: image reviewed Assessment and Plan Assessment: Acute respiratory distress with hypoxemia, likely related to aspiration and possible aspiration pneumonia. Rule out non-ST segment elevation myocardial infarction. Nonanion gap metabolic acidosis, likely secondary to lactic acidemia. 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 Rule out urinary tract infection/urosepsis. Prior history of tobacco use, with possible underlying COPD. Recent 40 pound weight loss. History of osteoporosis. Plan: Plan dated August 21, 2024. The patient is seen in the intensive care unit, room 266. She was brought down to the intensive care unit, for further monitoring and management. Currently, on a nonrebreather, her saturations are 100%. He has sinus tachycardia with a rate of 126. Blood pressure stable 120s systolic. She is on a nonrebreather, and receiving IV heparin. She is also got D5 with half-normal saline with 1 ampoule of sodium bicarb and at 50 cc an hour. She continues on vancomycin and cefepime. Labs, x-rays, and all medications are reviewed. We will continue to follow the patient, make recommendations along the way. I will check a procalcitonin level. Time with Patient: Greater than 30
--- NOTE | 2024-08-21 13:00 | P.PN ---
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 On today's evaluation that is 08/21/2024, patient did not have any fever and denies any chills, patient is breathing comfortably slightly comfortably now and is currently on 8 L high flow nasal oxygen patient mention improvement in abdominal pain no nausea vomiting or diarrhea. Patient white count is down to 15.6 creatinine is 1.16 chest x-ray with right- sided acute infiltrate Objective - Vital Signs Vital signs: Vital Signs Temp 98.4 F 08/21/24 12:00 Pulse 114 H 08/21/24 12:00 Resp 20 08/21/24 12:00 BP 96/64 08/21/24 12:00 Pulse Ox 97 08/21/24 12:00 FiO2 Intake & Output 08/20/24 08/21/24 08/21/24 18:59 06:59 18:59 Intake Total 920 400 Output Total 225 Balance 920 175 Weight 40.823 kg Intake: IV 400 Dextrose 5%-0.45% NaCl 1, 100 000 ml @ 50 mls/hr IV . Q20H JESSICA Rx#:[id number] Magnesium Sulfate-D5w Pmx 200 1 gm In Dextrose/Water 1 100ml.bag @ 100 mls/hr IVPB Q1H JESSICA Rx#: [id number] Potassium Chloride 10 meq 100 In Water For Injection 1 100ml.bag @ 100 mls/hr IVPB Q1H JESSICA Rx#: [id number] Intake, IV Titration 920 Amount Cefepime 2 gm In Sodium 100 Chloride 0.9% 100 ml @ 25 mls/hr IVPB Q12H JESSICA Rx# :[id number] Dextrose 5%-0.45% NaCl 1, 300 000 ml @ 50 mls/hr IV . Q23H JESSICA with Sodium Bicarb (1 Meq/ml) 150 ml Rx#:[id number] Heparin Sod,Pork in 0.45% 20 NaCl 25,000 unit In 0.45 % NaCl 1 250ml.bag @ 12 UNITS/KG/HR 4.899 mls/hr IV .Q24H JESSICA Rx#: [id number] Sodium Chloride 0.9% 500 500 ml 500 ml @ 999 mls/hr IV .Q31M ONE Rx#:[id number] Output: Urine 225 Other: Voiding Method Indwelling Catheter Indwelling Catheter - Exam GENERAL DESCRIPTION: An elderly female lying in bed in no distress RESPIRATORY SYSTEM: Unlabored breathing , decreased breath sounds at bases HEART: S1 S2 regular rate and rhythm , ABDOMEN: Soft , no tenderness EXTREMITIES: No edema feet - Labs CBC & Chem 7: 08/21/24 06:21 08/21/24 06:21 Labs: Abnormal Lab Results - Last 24 Hours (Table) 08/20/24 08/20/24 08/20/24 Range/Units 06:37 13:21 13:21 WBC 14.97 H 20.3 H (4.50-10.00) X 10*3/uL RBC 3.47 L 3.00 L (4.10-5.20) X 10*6/uL Hgb 11.5 L 10.0 L D (12.0-15.0) g/dL Hct 36.8 L 32.5 L (37.2-46.3) % MCV 106.1 H 108.2 H (80.0-97.0) FL MCH 33.1 H (27.0-32.0) pg MCHC 31.3 L 30.8 L (32.0-37.0) g/dL Immature Gran # 0.08 H (0.00-0.04) X 10*3/uL Neutrophils # 12.11 H (1.80-7.70) X 10*3/uL Neutrophils # (Manual) 18.00 H (1.3-7.7) k/uL Eosinophils # 0 L (0.04-0.35) X 10*3/uL Metamyelocytes # (Man) 0.41 H (0) k/uL Macrocytosis Marked A Macrocytosis (manual) 2+ A (None Seen) PT 16.3 H (10.0-12.5) sec INR 1.6 H (<1.2) APTT (22.0-30.0) sec D-Dimer (<0.60) mg/L FEU ABG pCO2 (35-45) mmHg ABG pO2 (83-108) mmHg ABG HCO3 (21-25) mmol/L ABG Total CO2 (19-24) mmol/L ABG O2 Saturation (94-97) % Hemoglobin (11.4-16.0) gm/dL Sodium (137-145) mmol/L Carbon Dioxide (22-30) mmol/L BUN (7-17) mg/dL Creatinine (0.52-1.04) mg/dL Glucose (74-99) mg/dL POC Glucose (mg/dL) (70-110) mg/dL Plasma Lactic Acid Quintin (0.7-2.0) mmol/L Calcium (8.4-10.2) mg/dL Troponin I (0.000-0.034) ng/mL Total Protein (6.3-8.2) g/dL Albumin (3.5-5.0) g/dL 08/20/24 08/20/24 08/20/24 Range/Units 13:21 14:47 16:14 WBC (4.50-10.00) X 10*3/uL RBC (4.10-5.20) X 10*6/uL Hgb (12.0-15.0) g/dL Hct (37.2-46.3) % MCV (80.0-97.0) FL MCH (27.0-32.0) pg MCHC (32.0-37.0) g/dL Immature Gran # (0.00-0.04) X 10*3/uL Neutrophils # (1.80-7.70) X 10*3/uL Neutrophils # (Manual) (1.3-7.7) k/uL Eosinophils # (0.04-0.35) X 10*3/uL Metamyelocytes # (Man) (0) k/uL Macrocytosis Macrocytosis (manual) (None Seen) PT (10.0-12.5) sec INR (<1.2) APTT (22.0-30.0) sec D-Dimer (<0.60) mg/L FEU ABG pCO2 (35-45) mmHg ABG pO2 (83-108) mmHg ABG HCO3 (21-25) mmol/L ABG Total CO2 (19-24) mmol/L ABG O2 Saturation (94-97) % Hemoglobin (11.4-16.0) gm/dL Sodium (137-145) mmol/L Carbon Dioxide (22-30) mmol/L BUN (7-17) mg/dL Creatinine (0.52-1.04) mg/dL Glucose (74-99) mg/dL POC Glucose (mg/dL) (70-110) mg/dL Plasma Lactic Acid Quintin 8.8 H* 7.0 H* (0.7-2.0) mmol/L Calcium (8.4-10.2) mg/dL Troponin I 1.180 H* (0.000-0.034) ng/mL Total Protein (6.3-8.2) g/dL Albumin (3.5-5.0) g/dL 08/20/24 08/20/24 08/20/24 Range/Units 18:34 20:14 23:37 WBC (4.50-10.00) X 10*3/uL RBC (4.10-5.20) X 10*6/uL Hgb (12.0-15.0) g/dL Hct (37.2-46.3) % MCV (80.0-97.0) FL MCH (27.0-32.0) pg MCHC (32.0-37.0) g/dL Immature Gran # (0.00-0.04) X 10*3/uL Neutrophils # (1.80-7.70) X 10*3/uL Neutrophils # (Manual) (1.3-7.7) k/uL Eosinophils # (0.04-0.35) X 10*3/uL Metamyelocytes # (Man) (0) k/uL Macrocytosis Macrocytosis (manual) (None Seen) PT (10.0-12.5) sec INR (<1.2) APTT 40.7 H (22.0-30.0) sec D-Dimer (<0.60) mg/L FEU ABG pCO2 (35-45) mmHg ABG pO2 (83-108) mmHg ABG HCO3 (21-25) mmol/L ABG Total CO2 (19-24) mmol/L ABG O2 Saturation (94-97) % Hemoglobin (11.4-16.0) gm/dL Sodium (137-145) mmol/L Carbon Dioxide (22-30) mmol/L BUN (7-17) mg/dL Creatinine (0.52-1.04) mg/dL Glucose (74-99) mg/dL POC Glucose (mg/dL) (70-110) mg/dL Plasma Lactic Acid Quintin 6.0 H* 5.7 H* (0.7-2.0) mmol/L Calcium (8.4-10.2) mg/dL Troponin I (0.000-0.034) ng/mL Total Protein (6.3-8.2) g/dL Albumin (3.5-5.0) g/dL 08/21/24 08/21/24 08/21/24 Range/Units 00:13 03:29 03:29 WBC 17.4 H (4.50-10.00) X 10*3/uL RBC 2.79 L (4.10-5.20) X 10*6/uL Hgb 9.4 L (12.0-15.0) g/dL Hct 29.3 L (37.2-46.3) % MCV 105.2 H (80.0-97.0) FL MCH (27.0-32.0) pg MCHC (32.0-37.0) g/dL Immature Gran # (0.00-0.04) X 10*3/uL Neutrophils # (1.80-7.70) X 10*3/uL Neutrophils # (Manual) 14.60 H (1.3-7.7) k/uL Eosinophils # (0.04-0.35) X 10*3/uL Metamyelocytes # (Man) (0) k/uL Macrocytosis Macrocytosis (manual) (None Seen) PT 15.5 H (10.0-12.5) sec INR 1.5 H (<1.2) APTT (22.0-30.0) sec D-Dimer 6.21 H (<0.60) mg/L FEU ABG pCO2 (35-45) mmHg ABG pO2 (83-108) mmHg ABG HCO3 (21-25) mmol/L ABG Total CO2 (19-24) mmol/L ABG O2 Saturation (94-97) % Hemoglobin (11.4-16.0) gm/dL Sodium (137-145) mmol/L Carbon Dioxide (22-30) mmol/L BUN (7-17) mg/dL Creatinine (0.52-1.04) mg/dL Glucose (74-99) mg/dL POC Glucose (mg/dL) (70-110) mg/dL Plasma Lactic Acid Quintin (0.7-2.0) mmol/L Calcium (8.4-10.2) mg/dL Troponin I (0.000-0.034) ng/mL Total Protein (6.3-8.2) g/dL Albumin (3.5-5.0) g/dL 08/21/24 08/21/24 08/21/24 Range/Units 03:29 06:21 06:21 WBC 15.6 H (4.50-10.00) X 10*3/uL RBC 2.80 L (4.10-5.20) X 10*6/uL Hgb 9.3 L (12.0-15.0) g/dL Hct 29.2 L (37.2-46.3) % MCV 104.3 H (80.0-97.0) FL MCH (27.0-32.0) pg MCHC (32.0-37.0) g/dL Immature Gran # (0.00-0.04) X 10*3/uL Neutrophils # 13.6 H (1.80-7.70) X 10*3/uL Neutrophils # (Manual) (1.3-7.7) k/uL Eosinophils # (0.04-0.35) X 10*3/uL Metamyelocytes # (Man) (0) k/uL Macrocytosis Macrocytosis (manual) (None Seen) PT (10.0-12.5) sec INR (<1.2) APTT (22.0-30.0) sec D-Dimer (<0.60) mg/L FEU ABG pCO2 (35-45) mmHg ABG pO2 (83-108) mmHg ABG HCO3 (21-25) mmol/L ABG Total CO2 (19-24) mmol/L ABG O2 Saturation (94-97) % Hemoglobin (11.4-16.0) gm/dL Sodium 134 L (137-145) mmol/L Carbon Dioxide 16 L (22-30) mmol/L BUN 28 H (7-17) mg/dL Creatinine 1.16 H (0.52-1.04) mg/dL Glucose 160 H (74-99) mg/dL POC Glucose (mg/dL) (70-110) mg/dL Plasma Lactic Acid Quintin 4.3 H* (0.7-2.0) mmol/L Calcium 6.9 L (8.4-10.2) mg/dL Troponin I (0.000-0.034) ng/mL Total Protein 5.3 L (6.3-8.2) g/dL Albumin 2.1 L (3.5-5.0) g/dL 08/21/24 08/21/24 08/21/24 Range/Units 06:21 06:21 07:29 WBC (4.50-10.00) X 10*3/uL RBC (4.10-5.20) X 10*6/uL Hgb (12.0-15.0) g/dL Hct (37.2-46.3) % MCV (80.0-97.0) FL MCH (27.0-32.0) pg MCHC (32.0-37.0) g/dL Immature Gran # (0.00-0.04) X 10*3/uL Neutrophils # (1.80-7.70) X 10*3/uL Neutrophils # (Manual) (1.3-7.7) k/uL Eosinophils # (0.04-0.35) X 10*3/uL Metamyelocytes # (Man) (0) k/uL Macrocytosis Macrocytosis (manual) (None Seen) PT (10.0-12.5) sec INR (<1.2) APTT 43.6 H (22.0-30.0) sec D-Dimer (<0.60) mg/L FEU ABG pCO2 (35-45) mmHg ABG pO2 (83-108) mmHg ABG HCO3 (21-25) mmol/L ABG Total CO2 (19-24) mmol/L ABG O2 Saturation (94-97) % Hemoglobin (11.4-16.0) gm/dL Sodium (137-145) mmol/L Carbon Dioxide (22-30) mmol/L BUN (7-17) mg/dL Creatinine (0.52-1.04) mg/dL Glucose (74-99) mg/dL POC Glucose (mg/dL) 168 H (70-110) mg/dL Plasma Lactic Acid Quintin 3.0 H* (0.7-2.0) mmol/L Calcium (8.4-10.2) mg/dL Troponin I (0.000-0.034) ng/mL Total Protein (6.3-8.2) g/dL Albumin (3.5-5.0) g/dL 08/21/24 08/21/24 08/21/24 Range/Units 07:57 08:08 08:08 WBC (4.50-10.00) X 10*3/uL RBC (4.10-5.20) X 10*6/uL Hgb (12.0-15.0) g/dL Hct (37.2-46.3) % MCV (80.0-97.0) FL MCH (27.0-32.0) pg MCHC (32.0-37.0) g/dL Immature Gran # (0.00-0.04) X 10*3/uL Neutrophils # (1.80-7.70) X 10*3/uL Neutrophils # (Manual) (1.3-7.7) k/uL Eosinophils # (0.04-0.35) X 10*3/uL Metamyelocytes # (Man) (0) k/uL Macrocytosis Macrocytosis (manual) (None Seen) PT (10.0-12.5) sec INR (<1.2) APTT (22.0-30.0) sec D-Dimer (<0.60) mg/L FEU ABG pCO2 24 L (35-45) mmHg ABG pO2 147 H (83-108) mmHg ABG HCO3 15 L (21-25) mmol/L ABG Total CO2 16 L (19-24) mmol/L ABG O2 Saturation 99.9 H (94-97) % Hemoglobin 10.1 L (11.4-16.0) gm/dL Sodium (137-145) mmol/L Carbon Dioxide (22-30) mmol/L BUN (7-17) mg/dL Creatinine (0.52-1.04) mg/dL Glucose (74-99) mg/dL POC Glucose (mg/dL) (70-110) mg/dL Plasma Lactic Acid Quintin 4.9 H* (0.7-2.0) mmol/L Calcium (8.4-10.2) mg/dL Troponin I 0.608 H* (0.000-0.034) ng/mL Total Protein (6.3-8.2) g/dL Albumin (3.5-5.0) g/dL 08/21/24 08/21/24 08/21/24 Range/Units 08:48 11:24 12:09 WBC (4.50-10.00) X 10*3/uL RBC (4.10-5.20) X 10*6/uL Hgb (12.0-15.0) g/dL Hct (37.2-46.3) % MCV (80.0-97.0) FL MCH (27.0-32.0) pg MCHC (32.0-37.0) g/dL Immature Gran # (0.00-0.04) X 10*3/uL Neutrophils # (1.80-7.70) X 10*3/uL Neutrophils # (Manual) (1.3-7.7) k/uL Eosinophils # (0.04-0.35) X 10*3/uL Metamyelocytes # (Man) (0) k/uL Macrocytosis Macrocytosis (manual) (None Seen) PT (10.0-12.5) sec INR (<1.2) APTT (22.0-30.0) sec D-Dimer (<0.60) mg/L FEU ABG pCO2 (35-45) mmHg ABG pO2 (83-108) mmHg ABG HCO3 (21-25) mmol/L ABG Total CO2 (19-24) mmol/L ABG O2 Saturation (94-97) % Hemoglobin (11.4-16.0) gm/dL Sodium (137-145) mmol/L Carbon Dioxide (22-30) mmol/L BUN (7-17) mg/dL Creatinine (0.52-1.04) mg/dL Glucose (74-99) mg/dL POC Glucose (mg/dL) 175 H 152 H (70-110) mg/dL Plasma Lactic Acid Quintin 4.2 H* (0.7-2.0) mmol/L Calcium (8.4-10.2) mg/dL Troponin I (0.000-0.034) ng/mL Total Protein (6.3-8.2) g/dL Albumin (3.5-5.0) g/dL Assessment and Plan (1) Sepsis Current Visit: Yes Status: Acute Code(s): A41.9 - SEPSIS, UNSPECIFIED ORGANISM SNOMED Code(s): 40621529 (2) Urinary tract infection Current Visit: No Status: Acute Code(s): N39.0 - URINARY TRACT INFECTION, SITE NOT SPECIFIED SNOMED Code(s): 83825825 (3) Aspiration pneumonitis Current Visit: Yes Status: Acute Code(s): J69.0 - PNEUMONITIS DUE TO INHALATION OF FOOD AND VOMIT SNOMED Code(s): 297849000 Plan: 1patient with sepsis in this patient who did have significant elevated white count tachycardia elevated lactic acid source is likely renal in this patient recently has been diagnosed with a right ureteropelvic junction obstruction with right-sided hydronephrosis urine culture that was positive for E. coli 2-patient benefit from surgical invention sooner than later to the right kidney especially that the source of infection and possible abscess 3-patient did have worsening of respiratory status requiring transfer to ICU with a question of possible aspiration with acute infiltrate on the right side on the chest x-ray I will discontinue vancomycin and cefepime and start the patient on Zosyn Family at the bedside question answered Dictation was produced using [employer] dictation software. please excuse any grammatical, word or spelling errors. Time with Patient: Less than 30
--- NOTE | 2024-08-21 14:00 | P.PN ---
Subjective Progress Note Date: 08/21/24 History of present illness; Patient is a 74-year-old female with large cystic mass in right upper quadrant and atrophic right kidney who presents with abdominal pain and altered mental status. Patient states that pain started yesterday and progressed to the day. She describes pain as stabbing in nature. Previously with the pain she took Tylenol which only moderately improved her symptoms. She has associated symptoms of fever, shortness of breath, nausea, and denies chest pain or palpitations, vomiting. Patient was admitted 5 weeks ago with similar symptoms and was found to have cystic mass in right upper quadrant and atrophic kidney on CT abdomen with likely compression. Labs significant for hemoglobin 11.6, MCV 107.2, platelets 607, PT 13.7, INR 1.3, bicarb 7, glucose 220, lactic acid venous 11.1 => 7.9, calcium 7.8, AST 41, ALT 29, ALP 134, troponin 0.253, lipase 18, UA significant for cloudy appearance, 1+ protein, small leukocyte esterase, urine WBC 14, amorphous sediment rare, urine bacteria many, hyaline cast 39, urine mucus rare Chest x-ray done independently interpreted in the ER showed right lower lung airspace opacities. CT abdomen pelvis done independently interpreted showed large cystic mass involving right kidney, stable from prior CT 08/21/2024 Patient seen and examined at bedside. Patient had increased respiratory distress this morning requiring use of nonrebreather mask 15 L. This occurred after an apparent sip of water which she may have aspirated and caused her to cough. She was given 1 dose of IV Lasix 20 mg. And chest x-ray that showed some basilar infiltrates versus atelectasis. Concern for pneumonia and pulmonary consulted. She was subsequently transferred to ICU. She remains on D5 NS with bicarbonate, heparin drip, Zosyn, vancomycin and cefepime was discontinued. Blood and urine cultures pending. Echo pending. Urology, cardiology, infectious disease is also following, notes reviewed. Today's labs WBC 15.6, hemoglobin 9.3, MCV 104, platelets 320, ABG 7.4 on FiO2 100, sodium 134, potassium 36, bicarb 16, BUN 28, creatinine 1.16, glucose 168, lactic acid 5.7 => 4.3 => 3.0 => 4.9 => 4.2, troponin 0.608 REVIEW OF SYSTEMS: Pertinent positives and negatives noted in HPI. PHYSICAL EXAMINATION: Vitals reviewed GENERAL: Moderately distressed. Thin appearing. HEENT: Pupils are round and equally reacting to light. EOMI. No scleral icterus. Normocephalic, atraumatic. CARDIOVASCULAR: S1 and S2 present. No murmurs, rubs, or gallops. PULMONARY: Scattered rhonchi and wheezes. ABDOMEN: Soft, nontender, nondistended, normoactive bowel sounds. No palpable organomegaly. MUSCULOSKELETAL: Joint deformities in hands and feet EXTREMITIES: No apparent cyanosis, clubbing, or pedal edema. NEUROLOGICAL: Alert. Gross neurological examination did not reveal any focal deficits. SKIN: Rashes bilateral lower extremities. Assessment and plan Patient is a 74-year-old female with renal disease who presents with abdominal pain and altered mental status. 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, with anticipated nephrectomy #Lactic acidosis WBC 20.3, respiratory rate 32, with altered mental status Dilaudid 1 Mg IVP every 3 hours as needed Begin vancomycin, dosing per pharmacy Discontinue cefepime 2 g IVPB every 12 hours Begin Zosyn - Begin IV D5 half NS at 50 mL/h with bicarbonate - CT AP findings of large cystic mass involving right kidney Echo pending Urine and blood cultures pending Infectious disease following Urology following #Acute respiratory distress with hypoxemia, likely due to aspiration possible aspiration pneumonia #COPD Currently on nonrebreather Chest x-ray suspicious for aspiration pneumonia versus atelectasis Procalcitonin pending Pulmonology following #Elevated troponin Initial troponin 0.253 => 1.80 => 1.18 => 0.608 Continue IV heparin Cardiology following Chronic Medical Conditions #GERD - Resume home Pantoprazole #Anxiety/Depression - Resume home Xanax twice daily as needed F: As above E: Replete as needed N: Regular diet as tolerated DVT ppx: Heparin Code status: Full code Anticipated discharge place: Pending clinical course Anticipated discharge time: Pending clinical course Dictation was produced using [employer] dictation software. Please excuse any grammatical, word or spelling errors. Attestation I have seen and examined this patient with my resident , discussed the same with the resident/AUGUST, and agree with the dictator's assessment and plan as written Dr. Aneudy whitehead Objective - Vital Signs Vital signs: Vital Signs Temp 98.4 F 08/21/24 12:00 Pulse 114 H 08/21/24 13:00 Resp 21 08/21/24 13:00 BP 100/64 08/21/24 13:00 Pulse Ox 95 08/21/24 13:00 FiO2 Intake & Output 08/20/24 08/21/24 08/21/24 18:59 06:59 18:59 Intake Total 920 400 Output Total 225 Balance 920 175 Weight 40.823 kg Intake: IV 400 Dextrose 5%-0.45% NaCl 1, 100 000 ml @ 50 mls/hr IV . Q20H [facility] Rx#:[id number] Magnesium Sulfate-D5w Pmx 200 1 gm In Dextrose/Water 1 100ml.bag @ 100 mls/hr IVPB Q1H [facility] Rx#: [id number] Potassium Chloride 10 meq 100 In Water For Injection 1 100ml.bag @ 100 mls/hr IVPB Q1H [facility] Rx#: [id number] Intake, IV Titration 920 Amount Cefepime 2 gm In Sodium 100 Chloride 0.9% 100 ml @ 25 mls/hr IVPB Q12H [facility] Rx# :[id number] Dextrose 5%-0.45% NaCl 1, 300 000 ml @ 50 mls/hr IV . Q23H [facility] with Sodium Bicarb (1 Meq/ml) 150 ml Rx#:[id number] Heparin Sod,Pork in 0.45% 20 NaCl 25,000 unit In 0.45 % NaCl 1 250ml.bag @ 12 UNITS/KG/HR 4.899 mls/hr IV .Q24H [facility] Rx#: [id number] Sodium Chloride 0.9% 500 500 ml 500 ml @ 999 mls/hr IV .Q31M [facility] Rx#:[id number] Output: Urine 225 Other: Voiding Method Indwelling Catheter Indwelling Catheter - Labs CBC & Chem 7: 08/22/24 05:42 08/22/24 05:42 Labs: Abnormal Lab Results - Last 24 Hours (Table) 08/20/24 08/20/24 08/20/24 Range/Units 13:21 13:21 13:21 WBC 20.3 H (3.8-10.6) k/uL RBC 3.00 L (3.80-5.40) m/uL Hgb 10.0 L D (11.4-16.0) gm/dL Hct 32.5 L (34.0-46.0) % MCV 108.2 H (80.0-100.0) fL MCHC 30.8 L (31.0-37.0) g/dL Neutrophils # (1.3-7.7) k/uL Neutrophils # (Manual) 18.00 H (1.3-7.7) k/uL Metamyelocytes # (Man) 0.41 H (0) k/uL Macrocytosis Marked A PT 16.3 H (10.0-12.5) sec INR 1.6 H (<1.2) APTT (22.0-30.0) sec D-Dimer (<0.60) mg/L FEU ABG pCO2 (35-45) mmHg ABG pO2 (83-108) mmHg ABG HCO3 (21-25) mmol/L ABG Total CO2 (19-24) mmol/L ABG O2 Saturation (94-97) % Hemoglobin (11.4-16.0) gm/dL Sodium (137-145) mmol/L Carbon Dioxide (22-30) mmol/L BUN (7-17) mg/dL Creatinine (0.52-1.04) mg/dL Glucose (74-99) mg/dL POC Glucose (mg/dL) (70-110) mg/dL Plasma Lactic Acid Quintin 8.8 H* (0.7-2.0) mmol/L Calcium (8.4-10.2) mg/dL Troponin I (0.000-0.034) ng/mL Total Protein (6.3-8.2) g/dL Albumin (3.5-5.0) g/dL 08/20/24 08/20/24 08/20/24 Range/Units 14:47 16:14 18:34 WBC (3.8-10.6) k/uL RBC (3.80-5.40) m/uL Hgb (11.4-16.0) gm/dL Hct (34.0-46.0) % MCV (80.0-100.0) fL MCHC (31.0-37.0) g/dL Neutrophils # (1.3-7.7) k/uL Neutrophils # (Manual) (1.3-7.7) k/uL Metamyelocytes # (Man) (0) k/uL Macrocytosis PT (10.0-12.5) sec INR (<1.2) APTT 40.7 H (22.0-30.0) sec D-Dimer (<0.60) mg/L FEU ABG pCO2 (35-45) mmHg ABG pO2 (83-108) mmHg ABG HCO3 (21-25) mmol/L ABG Total CO2 (19-24) mmol/L ABG O2 Saturation (94-97) % Hemoglobin (11.4-16.0) gm/dL Sodium (137-145) mmol/L Carbon Dioxide (22-30) mmol/L BUN (7-17) mg/dL Creatinine (0.52-1.04) mg/dL Glucose (74-99) mg/dL POC Glucose (mg/dL) (70-110) mg/dL Plasma Lactic Acid Quintin 7.0 H* (0.7-2.0) mmol/L Calcium (8.4-10.2) mg/dL Troponin I 1.180 H* (0.000-0.034) ng/mL Total Protein (6.3-8.2) g/dL Albumin (3.5-5.0) g/dL 08/20/24 08/20/24 08/21/24 Range/Units 20:14 23:37 00:13 WBC (3.8-10.6) k/uL RBC (3.80-5.40) m/uL Hgb (11.4-16.0) gm/dL Hct (34.0-46.0) % MCV (80.0-100.0) fL MCHC (31.0-37.0) g/dL Neutrophils # (1.3-7.7) k/uL Neutrophils # (Manual) (1.3-7.7) k/uL Metamyelocytes # (Man) (0) k/uL Macrocytosis PT (10.0-12.5) sec INR (<1.2) APTT (22.0-30.0) sec D-Dimer 6.21 H (<0.60) mg/L FEU ABG pCO2 (35-45) mmHg ABG pO2 (83-108) mmHg ABG HCO3 (21-25) mmol/L ABG Total CO2 (19-24) mmol/L ABG O2 Saturation (94-97) % Hemoglobin (11.4-16.0) gm/dL Sodium (137-145) mmol/L Carbon Dioxide (22-30) mmol/L BUN (7-17) mg/dL Creatinine (0.52-1.04) mg/dL Glucose (74-99) mg/dL POC Glucose (mg/dL) (70-110) mg/dL Plasma Lactic Acid Quintin 6.0 H* 5.7 H* (0.7-2.0) mmol/L Calcium (8.4-10.2) mg/dL Troponin I (0.000-0.034) ng/mL Total Protein (6.3-8.2) g/dL Albumin (3.5-5.0) g/dL 08/21/24 08/21/24 08/21/24 Range/Units 03:29 03:29 03:29 WBC 17.4 H (3.8-10.6) k/uL RBC 2.79 L (3.80-5.40) m/uL Hgb 9.4 L (11.4-16.0) gm/dL Hct 29.3 L (34.0-46.0) % MCV 105.2 H (80.0-100.0) fL MCHC (31.0-37.0) g/dL Neutrophils # (1.3-7.7) k/uL Neutrophils # (Manual) 14.60 H (1.3-7.7) k/uL Metamyelocytes # (Man) (0) k/uL Macrocytosis PT 15.5 H (10.0-12.5) sec INR 1.5 H (<1.2) APTT (22.0-30.0) sec D-Dimer (<0.60) mg/L FEU ABG pCO2 (35-45) mmHg ABG pO2 (83-108) mmHg ABG HCO3 (21-25) mmol/L ABG Total CO2 (19-24) mmol/L ABG O2 Saturation (94-97) % Hemoglobin (11.4-16.0) gm/dL Sodium (137-145) mmol/L Carbon Dioxide (22-30) mmol/L BUN (7-17) mg/dL Creatinine (0.52-1.04) mg/dL Glucose (74-99) mg/dL POC Glucose (mg/dL) (70-110) mg/dL Plasma Lactic Acid Quintin 4.3 H* (0.7-2.0) mmol/L Calcium (8.4-10.2) mg/dL Troponin I (0.000-0.034) ng/mL Total Protein (6.3-8.2) g/dL Albumin (3.5-5.0) g/dL 08/21/24 08/21/24 08/21/24 Range/Units 06:21 06:21 06:21 WBC 15.6 H (3.8-10.6) k/uL RBC 2.80 L (3.80-5.40) m/uL Hgb 9.3 L (11.4-16.0) gm/dL Hct 29.2 L (34.0-46.0) % MCV 104.3 H (80.0-100.0) fL MCHC (31.0-37.0) g/dL Neutrophils # 13.6 H (1.3-7.7) k/uL Neutrophils # (Manual) (1.3-7.7) k/uL Metamyelocytes # (Man) (0) k/uL Macrocytosis PT (10.0-12.5) sec INR (<1.2) APTT 43.6 H (22.0-30.0) sec D-Dimer (<0.60) mg/L FEU ABG pCO2 (35-45) mmHg ABG pO2 (83-108) mmHg ABG HCO3 (21-25) mmol/L ABG Total CO2 (19-24) mmol/L ABG O2 Saturation (94-97) % Hemoglobin (11.4-16.0) gm/dL Sodium 134 L (137-145) mmol/L Carbon Dioxide 16 L (22-30) mmol/L BUN 28 H (7-17) mg/dL Creatinine 1.16 H (0.52-1.04) mg/dL Glucose 160 H (74-99) mg/dL POC Glucose (mg/dL) (70-110) mg/dL Plasma Lactic Acid Quintin (0.7-2.0) mmol/L Calcium 6.9 L (8.4-10.2) mg/dL Troponin I (0.000-0.034) ng/mL Total Protein 5.3 L (6.3-8.2) g/dL Albumin 2.1 L (3.5-5.0) g/dL 08/21/24 08/21/24 08/21/24 Range/Units 06:21 07:29 07:57 WBC (3.8-10.6) k/uL RBC (3.80-5.40) m/uL Hgb (11.4-16.0) gm/dL Hct (34.0-46.0) % MCV (80.0-100.0) fL MCHC (31.0-37.0) g/dL Neutrophils # (1.3-7.7) k/uL Neutrophils # (Manual) (1.3-7.7) k/uL Metamyelocytes # (Man) (0) k/uL Macrocytosis PT (10.0-12.5) sec INR (<1.2) APTT (22.0-30.0) sec D-Dimer (<0.60) mg/L FEU ABG pCO2 24 L (35-45) mmHg ABG pO2 147 H (83-108) mmHg ABG HCO3 15 L (21-25) mmol/L ABG Total CO2 16 L (19-24) mmol/L ABG O2 Saturation 99.9 H (94-97) % Hemoglobin 10.1 L (11.4-16.0) gm/dL Sodium (137-145) mmol/L Carbon Dioxide (22-30) mmol/L BUN (7-17) mg/dL Creatinine (0.52-1.04) mg/dL Glucose (74-99) mg/dL POC Glucose (mg/dL) 168 H (70-110) mg/dL Plasma Lactic Acid Quintin 3.0 H* (0.7-2.0) mmol/L Calcium (8.4-10.2) mg/dL Troponin I (0.000-0.034) ng/mL Total Protein (6.3-8.2) g/dL Albumin (3.5-5.0) g/dL 08/21/24 08/21/24 08/21/24 Range/Units 08:08 08:08 08:48 WBC (3.8-10.6) k/uL RBC (3.80-5.40) m/uL Hgb (11.4-16.0) gm/dL Hct (34.0-46.0) % MCV (80.0-100.0) fL MCHC (31.0-37.0) g/dL Neutrophils # (1.3-7.7) k/uL Neutrophils # (Manual) (1.3-7.7) k/uL Metamyelocytes # (Man) (0) k/uL Macrocytosis PT (10.0-12.5) sec INR (<1.2) APTT (22.0-30.0) sec D-Dimer (<0.60) mg/L FEU ABG pCO2 (35-45) mmHg ABG pO2 (83-108) mmHg ABG HCO3 (21-25) mmol/L ABG Total CO2 (19-24) mmol/L ABG O2 Saturation (94-97) % Hemoglobin (11.4-16.0) gm/dL Sodium (137-145) mmol/L Carbon Dioxide (22-30) mmol/L BUN (7-17) mg/dL Creatinine (0.52-1.04) mg/dL Glucose (74-99) mg/dL POC Glucose (mg/dL) 175 H (70-110) mg/dL Plasma Lactic Acid Quintin 4.9 H* (0.7-2.0) mmol/L Calcium (8.4-10.2) mg/dL Troponin I 0.608 H* (0.000-0.034) ng/mL Total Protein (6.3-8.2) g/dL Albumin (3.5-5.0) g/dL 08/21/24 08/21/24 Range/Units 11:24 12:09 WBC (3.8-10.6) k/uL RBC (3.80-5.40) m/uL Hgb (11.4-16.0) gm/dL Hct (34.0-46.0) % MCV (80.0-100.0) fL MCHC (31.0-37.0) g/dL Neutrophils # (1.3-7.7) k/uL Neutrophils # (Manual) (1.3-7.7) k/uL Metamyelocytes # (Man) (0) k/uL Macrocytosis PT (10.0-12.5) sec INR (<1.2) APTT (22.0-30.0) sec D-Dimer (<0.60) mg/L FEU ABG pCO2 (35-45) mmHg ABG pO2 (83-108) mmHg ABG HCO3 (21-25) mmol/L ABG Total CO2 (19-24) mmol/L ABG O2 Saturation (94-97) % Hemoglobin (11.4-16.0) gm/dL Sodium (137-145) mmol/L Carbon Dioxide (22-30) mmol/L BUN (7-17) mg/dL Creatinine (0.52-1.04) mg/dL Glucose (74-99) mg/dL POC Glucose (mg/dL) 152 H (70-110) mg/dL Plasma Lactic Acid Quintin 4.2 H* (0.7-2.0) mmol/L Calcium (8.4-10.2) mg/dL Troponin I (0.000-0.034) ng/mL Total Protein (6.3-8.2) g/dL Albumin (3.5-5.0) g/dL
[2024-08-21] MEDS: VANCOMYCIN 750 MG in SODIUM CHLORIDE 0.9% 250 ML IVPB ONE (14:41)
[2024-08-21] MEDS: PIPERACILLIN-TAZOBACTAM 3.375 GM in SODIUM CHLORIDE 0.9% 100 ML IVPB SCH (17:06)
--- NOTE | 2024-08-22 04:42 | XR ---
EXAMINATION TYPE: XR chest 1V DATE OF EXAM: 08/22/2024 CLINICAL HISTORY: Difficulty breathing progress study. TECHNIQUE: Single AP portable upright view of the chest is obtained. COMPARISON: Chest x-ray from one day earlier FINDINGS: Persistent low lung volumes and bibasilar opacities. Cardiac silhouette size is stable and upper limits of normal. Osseous structures are intact. IMPRESSION: Persistent low lung volumes with bibasilar acute infiltrate and/or atelectasis. No signif icant change from one day earlier. [facility], , 08/22/2024 4:39 AM
[2024-08-22 06:04] LABS: Basophils % (A) 0 %; Eosinophils # (A) 0.1 k/uL (0-0.7); Eosinophils % (A) 0 %; HCT 31.3 % (34.0-46.0); HGB 10.2 gm/dL (11.4-16.0); Lymphocytes # (A) 1.4 k/uL (1.0-4.8); Lymphocytes % (A) 12 %; MCHC 32.6 g/dL (31.0-37.0); MCV 104.4 fL (80.0-100.0); Macrocytosis Slight; Mean Platelet Volume 8.2; Monocytes # (A) 0.2 k/uL (0-1.0); Monocytes % (A) 1 %; Neutrophils # (A) 10.4 k/uL (1.3-7.7); Neutrophils % (A) 86 %; Platelet Count 202 k/uL (150-450); RDW 13.9 % (11.5-15.5); WBC 12.2 k/uL (3.8-10.6)
[2024-08-22 06:05] LABS: ALT 23 U/L (4-34); African American GFR (CKD) 73 (>60 ml/min/1.73 sqM); Anion Gap 8 mmol/L; Blood Urea Nitrogen 34 mg/dL (7-17); Calcium 7.4 mg/dL (8.4-10.2); Carbon Dioxide 21 mmol/L (22-30); Chloride 105 mmol/L (98-107); Glucose 149 mg/dL (74-99); Non-African American GFR(CKD) 63 (>60 ml/min/1.73 sqM); Sodium 134 mmol/L (137-145)
[2024-08-22 06:07] LABS: AST 69 U/L (14-36); Albumin 2.6 g/dL (3.5-5.0); Alkaline Phosphatase 102 U/L (38-126); Magnesium 2.3 mg/dL (1.6-2.3); Potassium 4.8 mmol/L (3.5-5.1); Total Protein 6.4 g/dL (6.3-8.2)
[2024-08-22] MEDS: HEPARIN SODIUM 1,000 UN/ML (10ML VL) IV PRN (08:01)
--- NOTE | 2024-08-22 10:31 | P.PN ---
Subjective Progress Note Date: 08/22/24 Denies any flank pain at this time. Objective - Vital Signs Vital signs: Vital Signs Temp 98.1 F 08/22/24 08:00 Pulse 102 H 08/22/24 10:00 Resp 24 08/22/24 10:00 BP 94/55 08/22/24 10:00 Pulse Ox 96 08/22/24 10:00 FiO2 Intake & Output 08/21/24 08/22/24 08/22/24 18:59 06:59 18:59 Intake Total 800 600 507.146 Output Total 485 335 155 Balance 315 265 352.146 Intake: IV 800 600 300 Dextrose 5%-0.45% NaCl 1, 400 50 000 ml @ 50 mls/hr IV . Q20H [facility] Rx#:[id number] Dextrose 5%-0.45% NaCl 1, 550 200 000 ml @ 50 mls/hr IV . Q23H [facility] with Sodium Bicarb (1 Meq/ml) 150 ml Rx#:[id number] Magnesium Sulfate-D5w Pmx 200 1 gm In Dextrose/Water 1 100ml.bag @ 100 mls/hr IVPB Q1H [facility] Rx#: [id number] Piperacillin-Tazobactam 3 100 .375 gm In Sodium Chloride 0.9% 100 ml @ 25 mls/hr IVPB Q8HR [facility] Rx# :[id number] Potassium Chloride 10 meq 200 In Water For Injection 1 100ml.bag @ 100 mls/hr IVPB Q1H [facility] Rx#: [id number] Intake, IV Titration 207.146 Amount Heparin Sod,Pork in 0.45% 207.146 NaCl 25,000 unit In 0.45 % NaCl 1 250ml.bag @ 12 UNITS/KG/HR 4.899 mls/hr IV .Q24H [facility] Rx#: [id number] Output: Urine 485 335 155 Other: Voiding Method Indwelling Catheter Indwelling Catheter Indwelling Catheter - Constitutional General appearance: Present: no acute distress - Gastrointestinal General gastrointestinal: Present: soft. Absent: distended, tenderness - Labs CBC & Chem 7: 08/22/24 05:42 08/22/24 05:42 Labs: Abnormal Lab Results - Last 24 Hours (Table) 08/21/24 08/21/24 08/21/24 Range/Units 08:08 11:24 12:09 WBC (3.8-10.6) k/uL RBC (3.80-5.40) m/uL Hgb (11.4-16.0) gm/dL Hct (34.0-46.0) % MCV (80.0-100.0) fL Neutrophils # (1.3-7.7) k/uL APTT (22.0-30.0) sec Sodium (137-145) mmol/L Carbon Dioxide (22-30) mmol/L BUN (7-17) mg/dL Glucose (74-99) mg/dL POC Glucose (mg/dL) 152 H (70-110) mg/dL Plasma Lactic Acid Quintin 4.2 H* (0.7-2.0) mmol/L Calcium (8.4-10.2) mg/dL AST (14-36) U/L Albumin (3.5-5.0) g/dL Procalcitonin 19.90 H (0.02-0.50) ng/mL 08/21/24 08/21/24 08/21/24 Range/Units 15:14 18:29 21:37 WBC (3.8-10.6) k/uL RBC (3.80-5.40) m/uL Hgb (11.4-16.0) gm/dL Hct (34.0-46.0) % MCV (80.0-100.0) fL Neutrophils # (1.3-7.7) k/uL APTT (22.0-30.0) sec Sodium (137-145) mmol/L Carbon Dioxide (22-30) mmol/L BUN (7-17) mg/dL Glucose (74-99) mg/dL POC Glucose (mg/dL) (70-110) mg/dL Plasma Lactic Acid Quintin 3.4 H* 3.8 H* 2.7 H* (0.7-2.0) mmol/L Calcium (8.4-10.2) mg/dL AST (14-36) U/L Albumin (3.5-5.0) g/dL Procalcitonin (0.02-0.50) ng/mL 08/22/24 08/22/24 08/22/24 Range/Units 00:35 05:42 05:42 WBC 12.2 H (3.8-10.6) k/uL RBC 3.00 L (3.80-5.40) m/uL Hgb 10.2 L (11.4-16.0) gm/dL Hct 31.3 L (34.0-46.0) % MCV 104.4 H (80.0-100.0) fL Neutrophils # 10.4 H (1.3-7.7) k/uL APTT (22.0-30.0) sec Sodium 134 L (137-145) mmol/L Carbon Dioxide 21 L (22-30) mmol/L BUN 34 H (7-17) mg/dL Glucose 149 H (74-99) mg/dL POC Glucose (mg/dL) (70-110) mg/dL Plasma Lactic Acid Quintin 2.9 H* (0.7-2.0) mmol/L Calcium 7.4 L (8.4-10.2) mg/dL AST 69 H (14-36) U/L Albumin 2.6 L (3.5-5.0) g/dL Procalcitonin (0.02-0.50) ng/mL 08/22/24 Range/Units 05:42 WBC (3.8-10.6) k/uL RBC (3.80-5.40) m/uL Hgb (11.4-16.0) gm/dL Hct (34.0-46.0) % MCV (80.0-100.0) fL Neutrophils # (1.3-7.7) k/uL APTT 33.2 H (22.0-30.0) sec Sodium (137-145) mmol/L Carbon Dioxide (22-30) mmol/L BUN (7-17) mg/dL Glucose (74-99) mg/dL POC Glucose (mg/dL) (70-110) mg/dL Plasma Lactic Acid Quintin (0.7-2.0) mmol/L Calcium (8.4-10.2) mg/dL AST (14-36) U/L Albumin (3.5-5.0) g/dL Procalcitonin (0.02-0.50) ng/mL Microbiology - Last 24 Hours (Table) 08/20/24 23:14 Urine Culture - Final Urine,Catheterized Assessment and Plan Assessment: 74-year-old female with history of right-sided UPJ obstruction, causing significant hydronephrosis with mass effect of the kidney. She is admitted to the hospital with multiple issues at this time. Discussed given ongoing problem we are not given do anything during this hospital admission for her hydronephrosis. Discussed with her she will eventually require a robotic right- sided nephrectomy given her pain in the atrophic kidney. Will arrange for that as an outpatient, she will need to be cleared by cardiology prior to proceeding with any surgical intervention from my and given the elevation in troponins. -She will be set up for a right robotic simple nephrectomy as an outpatient, if she is cleared medically and from cardiac standpoint -I am going to obtain a CT urogram to better define her anatomy for her planned procedure
--- NOTE | 2024-08-22 11:10 | P.PN ---
Subjective Progress Note Date: 08/22/24 Principal diagnosis: Hypotension, respiratory failure. Pulmonary consult dated August 21, 2024. 74-year-old female who was initially seen in the emergency department, on [facility] er 12. She apparently came in complaining of abdominal pain. The pain was apparently severe, and she had difficulty catching her breath. The patient was seen by the ER physician, and admitted with a diagnosis of intractable abdominal pain, and mental status changes. This morning, a rapid response was called on this team, and my ICU charge nurse, went to the patient, to see her. The patient apparently was not really having any abdominal pain this morning, but rather, it likely aspirated according to the charge nurse. The patient was seen by the primary service, and because the patient was tachycardic, and was in significant distress, the patient was transferred down to the intensive care unit, for further monitoring and management. The patient is seen in the ICU, room 266. She is currently on a nonrebreather. Her heart rate is 126, her saturations are 100%, and her respiratory symptoms are in the low 30s. She seems a bit more settled. She has got IV heparin running, and D5 with half- normal saline with 1 amp of sodium bicarb and at 50 cc an hour. She is not having any abdominal pain at this time. She was given vancomycin and cefepime. Current labs include a white count of 15.6, hemoglobin 9.3, hematocrit 29.2, and a platelet count of 320,000. The patient's PTT is 43.6. Blood gases show pO2 of 147, pCO2 of 24, and a pH of 7.41. These blood gases are consistent with a mixed acid-base disturbance, including a combined respiratory alkalosis, metabolic acidosis. Looking at her electrolyte profile, she appears to have a nonanion gap metabolic acidosis, as her sodium is 134, potassium 3.6, chlorides 106, bicarbonate concentration 16, anion gap 12, BUN 28, creatinine 1.16. The patient's lactic acid has jumped up to 4.9 from 3. Glucose is 175. Calcium 6.9. Troponin 0.608. Radiographic studies suggest the possibility of right lower lobe pneumonia. Progress note dated August 22, 2024. 74-year-old female seen in consultation yesterday. Today she is seen in room 266. She continues on oxygen at 2 L. The patient has an IV with dextrose and half-normal saline with 1 ampoule of sodium bicarb and at 50 cc an hour. The patient is also getting heparin via weight-based protocol. The patient did pass her swallow evaluation. Will add some breathing treatments to her regimen. Current labs include a white count 12.2, hemoglobin 10.2, macro 31.3, and p latelet count 202,000. Sodium 134, potassium 4.8, chlorides 105, CO2 21, BUN 34, creatinine 0.91. Calcium is 7.4. Albumin is 2.6. Chest x-ray shows bibasilar infiltrates or atelectasis. Chest x-ray is essentially unchanged. Objective - Vital Signs Vital signs: Vital Signs Temp 98.1 F 08/22/24 08:00 Pulse 102 H 08/22/24 10:00 Resp 24 08/22/24 10:00 BP 94/55 08/22/24 10:00 Pulse Ox 96 08/22/24 10:00 FiO2 Intake & Output 08/21/24 08/22/24 08/22/24 18:59 06:59 18:59 Intake Total 800 600 507.146 Output Total 485 335 155 Balance 315 265 352.146 Intake: IV 800 600 300 Dextrose 5%-0.45% NaCl 1, 400 50 000 ml @ 50 mls/hr IV . Q20H [facility] Rx#:[id number] Dextrose 5%-0.45% NaCl 1, 550 200 000 ml @ 50 mls/hr IV . Q23H [facility] with Sodium Bicarb (1 Meq/ml) 150 ml Rx#:[id number] Magnesium Sulfate-D5w Pmx 200 1 gm In Dextrose/Water 1 100ml.bag @ 100 mls/hr IVPB Q1H [facility] Rx#: [id number] Piperacillin-Tazobactam 3 100 .375 gm In Sodium Chloride 0.9% 100 ml @ 25 mls/hr IVPB Q8HR [facility] Rx# :[id number] Potassium Chloride 10 meq 200 In Water For Injection 1 100ml.bag @ 100 mls/hr IVPB Q1H [facility] Rx#: [id number] Intake, IV Titration 207.146 Amount Heparin Sod,Pork in 0.45% 207.146 NaCl 25,000 unit In 0.45 % NaCl 1 250ml.bag @ 12 UNITS/KG/HR 4.899 mls/hr IV .Q24H [facility] Rx#: [id number] Output: Urine 485 335 155 Other: Voiding Method Indwelling Catheter Indwelling Catheter Indwelling Catheter - Exam Extremely hard of hearing, currently on 2 L nasal cannula. No respiratory distress. Laying nearly flat in bed. HEENT examination is grossly unremarkable. Mucous membranes are moist. No oral lesions. Neck supple. Full range of motion. No adenopathy thyromegaly or neck vein distention. Cardiovascular examination reveals regular rhythm rate. S1-S2 normal. No S3 or S4. No discernible murmur noted. Lungs reveal scattered rhonchi and wheezes. No crackles. Breath sounds equal b ilaterally. Abdomen soft and nontender. No masses. The patient is not having any abdominal pain. Extremities are intact. No cyanosis clubbing or edema. Skin is without rash or lesion. Neurologic examination is brief but nonfocal. - Labs CBC & Chem 7: 08/22/24 05:42 08/22/24 05:42 Labs: Abnormal Lab Results - Last 24 Hours (Table) 08/21/24 08/21/24 08/21/24 Range/Units 08:08 11:24 12:09 WBC (3.8-10.6) k/uL RBC (3.80-5.40) m/uL Hgb (11.4-16.0) gm/dL Hct (34.0-46.0) % MCV (80.0-100.0) fL Neutrophils # (1.3-7.7) k/uL APTT (22.0-30.0) sec Sodium (137-145) mmol/L Carbon Dioxide (22-30) mmol/L BUN (7-17) mg/dL Glucose (74-99) mg/dL POC Glucose (mg/dL) 152 H (70-110) mg/dL Plasma Lactic Acid Quintin 4.2 H* (0.7-2.0) mmol/L Calcium (8.4-10.2) mg/dL AST (14-36) U/L Albumin (3.5-5.0) g/dL Procalcitonin 19.90 H (0.02-0.50) ng/mL 08/21/24 08/21/24 08/21/24 Range/Units 15:14 18:29 21:37 WBC (3.8-10.6) k/uL RBC (3.80-5.40) m/uL Hgb (11.4-16.0) gm/dL Hct (34.0-46.0) % MCV (80.0-100.0) fL Neutrophils # (1.3-7.7) k/uL APTT (22.0-30.0) sec Sodium (137-145) mmol/L Carbon Dioxide (22-30) mmol/L BUN (7-17) mg/dL Glucose (74-99) mg/dL POC Glucose (mg/dL) (70-110) mg/dL Plasma Lactic Acid Quintin 3.4 H* 3.8 H* 2.7 H* (0.7-2.0) mmol/L Calcium (8.4-10.2) mg/dL AST (14-36) U/L Albumin (3.5-5.0) g/dL Procalcitonin (0.02-0.50) ng/mL 08/22/24 08/22/24 08/22/24 Range/Units 00:35 05:42 05:42 WBC 12.2 H (3.8-10.6) k/uL RBC 3.00 L (3.80-5.40) m/uL Hgb 10.2 L (11.4-16.0) gm/dL Hct 31.3 L (34.0-46.0) % MCV 104.4 H (80.0-100.0) fL Neutrophils # 10.4 H (1.3-7.7) k/uL APTT (22.0-30.0) sec Sodium 134 L (137-145) mmol/L Carbon Dioxide 21 L (22-30) mmol/L BUN 34 H (7-17) mg/dL Glucose 149 H (74-99) mg/dL POC Glucose (mg/dL) (70-110) mg/dL Plasma Lactic Acid Quintin 2.9 H* (0.7-2.0) mmol/L Calcium 7.4 L (8.4-10.2) mg/dL AST 69 H (14-36) U/L Albumin 2.6 L (3.5-5.0) g/dL Procalcitonin (0.02-0.50) ng/mL 08/22/24 Range/Units 05:42 WBC (3.8-10.6) k/uL RBC (3.80-5.40) m/uL Hgb (11.4-16.0) gm/dL Hct (34.0-46.0) % MCV (80.0-100.0) fL Neutrophils # (1.3-7.7) k/uL APTT 33.2 H (22.0-30.0) sec Sodium (137-145) mmol/L Carbon Dioxide (22-30) mmol/L BUN (7-17) mg/dL Glucose (74-99) mg/dL POC Glucose (mg/dL) (70-110) mg/dL Plasma Lactic Acid Quintin (0.7-2.0) mmol/L Calcium (8.4-10.2) mg/dL AST (14-36) U/L Albumin (3.5-5.0) g/dL Procalcitonin (0.02-0.50) ng/mL Microbiology - Last 24 Hours (Table) 08/20/24 23:14 Urine Culture - Final Urine,Catheterized Assessment and Plan Assessment: Acute respiratory distress with hypoxemia, likely related to aspiration and possible aspiration pneumonia. Rule out non-ST segment elevation myocardial infarction. Non-anion gap metabolic acidosis, likely secondary to lactic acidemia. 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 Rule out urinary tract infection/urosepsis. Prior history of tobacco use, with possible underlying COPD. Recent 40 pound weight loss. History of osteoporosis. Plan: Plan dated August 21, 2024. The patient is seen in the intensive care unit, room 266. She was brought down to the intensive care unit, for further monitoring and management. Currently, on a nonrebreather, her saturations are 100%. He has sinus tachycardia with a rate of 126. Blood pressure stable 120s systolic. She is on a nonrebreather, and receiving IV heparin. She is also got D5 with half-normal saline with 1 am poule of sodium bicarb and at 50 cc an hour. She continues on vancomycin and cefepime. Labs, x-rays, and all medications are reviewed. We will continue to follow the patient, make recommendations along the way. I will check a procalcitonin level. Plan dated August 22, 2024. The patient is seen today in room 266. She was placed on Zosyn for possible aspiration pneumonia. She did pass her swallow evaluation. We add some breathing treatments because of her wheezes. She is currently on 2 L of oxygen. She is resting comfortably. She is getting dextrose with half-normal saline and 1 ampoule of sodium bicarb at 50 cc an hour. She also continues on heparin drip. Labs, x-rays, and all medications are reviewed. We will continue to follow the patient, make recommendations. Prognosis is certainly guarded. Time with Patient: Greater than 30
[2024-08-22] MEDS: IPRATROPIUM-ALBUTEROL 3 ML NEB INHALATION SCH (11:25)
--- NOTE | 2024-08-22 11:55 | P.PN ---
Subjective Progress Note Date: 08/22/24 History of present illness; Patient is a 74-year-old female with large cystic mass in right upper quadrant and atrophic right kidney who presents with abdominal pain and altered mental status. Patient states that pain started yesterday and progressed to the day. She describes pain as stabbing in nature. Previously with the pain she took Tylenol which only moderately improved her symptoms. She has associated symptoms of fever, shortness of breath, nausea, and denies chest pain or palpitations, vomiting. Patient was admitted 5 weeks ago with similar symptoms and was found to have cystic mass in right upper quadrant and atrophic kidney on CT abdomen with likely compression. Labs significant for hemoglobin 11.6, MCV 107.2, platelets 607, PT 13.7, INR 1.3, bicarb 7, glucose 220, lactic acid venous 11.1 => 7.9, calcium 7.8, AST 41, ALT 29, ALP 134, troponin 0.253, lipase 18, UA significant for cloudy appearance, 1+ protein, small leukocyte esterase, urine WBC 14, amorphous sediment rare, urine bacteria many, hyaline cast 39, urine mucus rare Chest x-ray done independently interpreted in the ER showed right lower lung airspace opacities. CT abdomen pelvis done independently interpreted showed large cystic mass involving right kidney, stable from prior CT 08/21/2024 Patient seen and examined at bedside. Patient had increased respiratory distress this morning requiring use of nonrebreather mask 15 L. This occurred after an apparent sip of water which she may have aspirated and caused her to cough. She was given 1 dose of IV Lasix 20 mg. And chest x-ray that showed some basilar infiltrates versus atelectasis. Concern for pneumonia and pulmonary consulted. She was subsequently transferred to ICU. She remains on D5 NS with bicarbonate, heparin drip, Zosyn, vancomycin and cefepime was discontinued. Blood and urine cultures pending. Echo pending. Urology, cardiology, infectious disease is also following, notes reviewed. Today's labs WBC 15.6, hemoglobin 9.3, MCV 104, platelets 320, ABG 7.4 10/01/ on FiO2 100, sodium 134, potassium 36, bicarb 16, BUN 28, creatinine 1.16, glucose 168, lactic acid 5.7 => 4.3 => 3.0 => 4.9 => 4.2, troponin 0.608 08/22. Patient seen and examined. Lab work done this morning showed WBC 12.2, hemoglobin 10.2, sodium 134, potassium 4.8, bicarb 21, BUN 34, creatinine 0.91.. States she feels better. Complaining of wheezing this morning REVIEW OF SYSTEMS: Pertinent positives and negatives noted in HPI. PHYSICAL EXAMINATION: Vitals reviewed GENERAL: Moderately distressed. Thin appearing. HEENT: Pupils are round and equally reacting to light. EOMI. No scleral icterus. Normocephalic, atraumatic. CARDIOVASCULAR: S1 and S2 present. No murmurs, rubs, or gallops. PULMONARY: Coarse breath sound bilaterally, rhonchi audible ABDOMEN: Soft, nontender, nondistended, normoactive bowel sounds. No palpable organomegaly. MUSCULOSKELETAL: Joint deformities in hands and feet EXTREMITIES: No apparent cyanosis, clubbing, or pedal edema. NEUROLOGICAL: Alert. Gross neurological examination did not reveal any focal deficits. SKIN: Rashes bilateral lower extremities. Assessment and plan Patient is a 74-year-old female with renal disease who presents with abdominal pain and altered mental status. #Sepsis #Abdominal pain, UTI #History of nonfunctioning right kidney #Large multicystic right renal lesion, with anticipated nephrectomy #Lactic acidosis Monitor vital sign Monitor CBC Monitor CMP Dilaudid 1 Mg IVP every 3 hours as needed Currently on IV Zosyn Continue IV D5 half NS at 50 mL/h with bicarbonate - CT AP findings of large cystic mass involving right kidney Echo pending Urine and blood cultures pending Infectious disease following Urology following, planning CT urogram and outpatient right robotic nephrectomy #Acute respiratory distress with hypoxemia, likely due to aspiration possible aspiration pneumonia #COPD Currently on nonrebreather Chest x-ray suspicious for aspiration pneumonia versus atelectasis Pulmonology following #Elevated troponin Initial troponin 0.253 => 1.80 => 1.18 => 0.608 Continue IV heparin Cardiology following Chronic Medical Conditions #GERD - Resume home Pantoprazole #Anxiety/Depression - Resume home Xanax twice daily as needed F: As above E: Replete as needed N: Regular diet as tolerated DVT ppx: Heparin Code status: Full code Anticipated discharge place: Pending clinical course Anticipated discharge time: Pending clinical course Dictation was produced using [employer] software. Please excuse any grammatical, word or spelling errors. Objective - Vital Signs Vital signs: Vital Signs Temp 98.1 F 08/22/24 08:00 Pulse 107 H 08/22/24 09:00 Resp 21 08/22/24 09:00 BP 97/60 08/22/24 09:00 Pulse Ox 97 08/22/24 09:00 FiO2 Intake & Output 08/21/24 08/22/24 08/22/24 18:59 06:59 18:59 Intake Total 800 600 407.146 Output Total 485 335 95 Balance 315 265 312.146 Intake: IV 800 600 200 Dextrose 5%-0.45% NaCl 1, 400 50 000 ml @ 50 mls/hr IV . Q20H [facility] Rx#:[id number] Dextrose 5%-0.45% NaCl 1, 550 100 000 ml @ 50 mls/hr IV . Q23H [facility] with Sodium Bicarb (1 Meq/ml) 150 ml Rx#:[id number] Magnesium Sulfate-D5w Pmx 200 1 gm In Dextrose/Water 1 100ml.bag @ 100 mls/hr IVPB Q1H [facility] Rx#: [id number] Piperacillin-Tazobactam 3 100 .375 gm In Sodium Chloride 0.9% 100 ml @ 25 mls/hr IVPB Q8HR [facility] Rx# :[id number] Potassium Chloride 10 meq 200 In Water For Injection 1 100ml.bag @ 100 mls/hr IVPB Q1H [facility] Rx#: [id number] Intake, IV Titration 207.146 Amount Heparin Sod,Pork in 0.45% 207.146 NaCl 25,000 unit In 0.45 % NaCl 1 250ml.bag @ 12 UNITS/KG/HR 4.899 mls/hr IV .Q24H [facility] Rx#: [id number] Output: Urine 485 335 95 Other: Voiding Method Indwelling Catheter Indwelling Catheter Indwelling Catheter - Labs CBC & Chem 7: 08/22/24 05:42 08/22/24 05:42 Labs: Abnormal Lab Results - Last 24 Hours (Table) 08/21/24 08/21/24 08/21/24 Range/Units 08:08 08:08 11:24 WBC (3.8-10.6) k/uL RBC (3.80-5.40) m/uL Hgb (11.4-16.0) gm/dL Hct (34.0-46.0) % MCV (80.0-100.0) fL Neutrophils # (1.3-7.7) k/uL APTT (22.0-30.0) sec Sodium (137-145) mmol/L Carbon Dioxide (22-30) mmol/L BUN (7-17) mg/dL Glucose (74-99) mg/dL POC Glucose (mg/dL) 152 H (70-110) mg/dL Plasma Lactic Acid Quintin 4.9 H* (0.7-2.0) mmol/L Calcium (8.4-10.2) mg/dL AST (14-36) U/L Albumin (3.5-5.0) g/dL Procalcitonin 19.90 H (0.02-0.50) ng/mL 08/21/24 08/21/24 08/21/24 Range/Units 12:09 15:14 18:29 WBC (3.8-10.6) k/uL RBC (3.80-5.40) m/uL Hgb (11.4-16.0) gm/dL Hct (34.0-46.0) % MCV (80.0-100.0) fL Neutrophils # (1.3-7.7) k/uL APTT (22.0-30.0) sec Sodium (137-145) mmol/L Carbon Dioxide (22-30) mmol/L BUN (7-17) mg/dL Glucose (74-99) mg/dL POC Glucose (mg/dL) (70-110) mg/dL Plasma Lactic Acid Quintin 4.2 H* 3.4 H* 3.8 H* (0.7-2.0) mmol/L Calcium (8.4-10.2) mg/dL AST (14-36) U/L Albumin (3.5-5.0) g/dL Procalcitonin (0.02-0.50) ng/mL 08/21/24 08/22/24 08/22/24 Range/Units 21:37 00:35 05:42 WBC 12.2 H (3.8-10.6) k/uL RBC 3.00 L (3.80-5.40) m/uL Hgb 10.2 L (11.4-16.0) gm/dL Hct 31.3 L (34.0-46.0) % MCV 104.4 H (80.0-100.0) fL Neutrophils # 10.4 H (1.3-7.7) k/uL APTT (22.0-30.0) sec Sodium (137-145) mmol/L Carbon Dioxide (22-30) mmol/L BUN (7-17) mg/dL Glucose (74-99) mg/dL POC Glucose (mg/dL) (70-110) mg/dL Plasma Lactic Acid Quintin 2.7 H* 2.9 H* (0.7-2.0) mmol/L Calcium (8.4-10.2) mg/dL AST (14-36) U/L Albumin (3.5-5.0) g/dL Procalcitonin (0.02-0.50) ng/mL 08/22/24 08/22/24 Range/Units 05:42 05:42 WBC (3.8-10.6) k/uL RBC (3.80-5.40) m/uL Hgb (11.4-16.0) gm/dL Hct (34.0-46.0) % MCV (80.0-100.0) fL Neutrophils # (1.3-7.7) k/uL APTT 33.2 H (22.0-30.0) sec Sodium 134 L (137-145) mmol/L Carbon Dioxide 21 L (22-30) mmol/L BUN 34 H (7-17) mg/dL Glucose 149 H (74-99) mg/dL POC Glucose (mg/dL) (70-110) mg/dL Plasma Lactic Acid Quintin (0.7-2.0) mmol/L Calcium 7.4 L (8.4-10.2) mg/dL AST 69 H (14-36) U/L Albumin 2.6 L (3.5-5.0) g/dL Procalcitonin (0.02-0.50) ng/mL Microbiology - Last 24 Hours (Table) 08/20/24 23:14 Urine Culture - Final Urine,Catheterized
--- NOTE | 2024-08-22 12:56 | P.PN ---
Subjective Progress Note Date: 08/22/24 This is Tony Juares NP, I'm dictating on behalf of Dr. Lopez's H&P and A&P. Patient was interviewed and examined. The patient is a pleasant 74-year-old female who presented to the hospital with severe abdominal pain, difficulty breathing, elevated troponins, and pneumonia. Patient reports that she is feeling better today. She is denying chest pain, heart palpitations, dizziness, and lightheadedness. Patient's heart rate has come down on its own without medications. We did start the patient on metoprolol IV 2.5 mg every 8 hours, which nursing reports she did not need yesterday. GENERAL: Well-appearing, well-nourished and in no acute distress. NECK: Supple without JVD or thyromegaly. LUNGS: Breath sounds clear to auscultation bilaterally. Respiration equal and unlabored. No wheezes, rales or rhonchi. HEART: Regular rate and rhythm without murmurs, rubs or gallops. S1 and S2 heard. EXTREMITIES: Normal range of motion, no edema. No clubbing or cyanosis. Peripheral pulses intact and strong. VITALS: Temp 98.2, heart rate 105, respirations 29, blood pressure 103/78, O2 saturation 95% on 2 L TELEMETRY: Sinus tachycardia LABS: White count 12.2, hemoglobin 10.2, platelets 202, sodium 134, potassium 4.8, BUN 34, creatinine 0.91, lactic acid 2.9, calcium 7.4, magnesium 2.3 IMPRESSION: 1. Acute hypoxic respiratory failure 2. Pneumonia 3. Elevated troponin, likely secondary to hypoxia 4. Sinus tachycardia PLAN: Discontinue IV metoprolol. Start metoprolol 12.5 mg oral twice daily. Start atorvastatin 10 mg at bedtime. Continue to monitor heart rate and blood pressure. Further recommendations based on patient's clinical course. Objective - Vital Signs Vital signs: Vital Signs Temp 98.2 F 08/22/24 12:00 Pulse 105 H 08/22/24 12:00 Resp 29 H 08/22/24 12:00 BP 103/78 08/22/24 12:00 Pulse Ox 95 08/22/24 12:00 FiO2 Intake & Output 08/21/24 08/22/24 08/22/24 18:59 06:59 18:59 Intake Total 800 600 607.146 Output Total 485 335 215 Balance 315 265 392.146 Intake: IV 800 600 400 Dextrose 5%-0.45% NaCl 1, 400 50 000 ml @ 50 mls/hr IV . Q20H [facility] Rx#:[id number] Dextrose 5%-0.45% NaCl 1, 550 300 000 ml @ 50 mls/hr IV . Q23H [facility] with Sodium Bicarb (1 Meq/ml) 150 ml Rx#:[id number] Magnesium Sulfate-D5w Pmx 200 1 gm In Dextrose/Water 1 100ml.bag @ 100 mls/hr IVPB Q1H [facility] Rx#: [id number] Piperacillin-Tazobactam 3 100 .375 gm In Sodium Chloride 0.9% 100 ml @ 25 mls/hr IVPB Q8HR [facility] Rx# :[id number] Potassium Chloride 10 meq 200 In Water For Injection 1 100ml.bag @ 100 mls/hr IVPB Q1H [facility] Rx#: [id number] Intake, IV Titration 207.146 Amount Heparin Sod,Pork in 0.45% 207.146 NaCl 25,000 unit In 0.45 % NaCl 1 250ml.bag @ 12 UNITS/KG/HR 4.899 mls/hr IV .Q24H [facility] Rx#: [id number] Output: Urine 485 335 215 Other: Voiding Method Indwelling Catheter Indwelling Catheter Indwelling Catheter - Labs CBC & Chem 7: 08/22/24 05:42 08/22/24 05:42 Labs: Abnormal Lab Results - Last 24 Hours (Table) 08/21/24 08/21/24 08/21/24 Range/Units 08:08 15:14 18:29 WBC (3.8-10.6) k/uL RBC (3.80-5.40) m/uL Hgb (11.4-16.0) gm/dL Hct (34.0-46.0) % MCV (80.0-100.0) fL Neutrophils # (1.3-7.7) k/uL APTT (22.0-30.0) sec Sodium (137-145) mmol/L Carbon Dioxide (22-30) mmol/L BUN (7-17) mg/dL Glucose (74-99) mg/dL Plasma Lactic Acid Quintin 3.4 H* 3.8 H* (0.7-2.0) mmol/L Calcium (8.4-10.2) mg/dL AST (14-36) U/L Albumin (3.5-5.0) g/dL Procalcitonin 19.90 H (0.02-0.50) ng/mL 08/21/24 08/22/24 08/22/24 Range/Units 21:37 00:35 05:42 WBC 12.2 H (3.8-10.6) k/uL RBC 3.00 L (3.80-5.40) m/uL Hgb 10.2 L (11.4-16.0) gm/dL Hct 31.3 L (34.0-46.0) % MCV 104.4 H (80.0-100.0) fL Neutrophils # 10.4 H (1.3-7.7) k/uL APTT (22.0-30.0) sec Sodium (137-145) mmol/L Carbon Dioxide (22-30) mmol/L BUN (7-17) mg/dL Glucose (74-99) mg/dL Plasma Lactic Acid Quintin 2.7 H* 2.9 H* (0.7-2.0) mmol/L Calcium (8.4-10.2) mg/dL AST (14-36) U/L Albumin (3.5-5.0) g/dL Procalcitonin (0.02-0.50) ng/mL 08/22/24 08/22/24 Range/Units 05:42 05:42 WBC (3.8-10.6) k/uL RBC (3.80-5.40) m/uL Hgb (11.4-16.0) gm/dL Hct (34.0-46.0) % MCV (80.0-100.0) fL Neutrophils # (1.3-7.7) k/uL APTT 33.2 H (22.0-30.0) sec Sodium 134 L (137-145) mmol/L Carbon Dioxide 21 L (22-30) mmol/L BUN 34 H (7-17) mg/dL Glucose 149 H (74-99) mg/dL Plasma Lactic Acid Quintin (0.7-2.0) mmol/L Calcium 7.4 L (8.4-10.2) mg/dL AST 69 H (14-36) U/L Albumin 2.6 L (3.5-5.0) g/dL Procalcitonin (0.02-0.50) ng/mL Microbiology - Last 24 Hours (Table) 08/20/24 23:14 Urine Culture - Final Urine,Catheterized
[2024-08-22] MEDS: LACTATED RINGERS 500 ML IV ONE (13:40)
--- NOTE | 2024-08-22 14:26 | P.PN ---
Subjective Progress Note Date: 08/22/24 Principal diagnosis: Reason for follow-up with right-sided kidney infection and aspiration pneumonitis Patient is a 74-year-old female with a past medical history signif icant for right sided hydronephrosis secondary to ureteropelvic junction obstruction and recently did have a right-sided retrograde pyelogram that was suggestive of hydronephrosis secondary to UPJ obstruction patient who presented to hospital with worsening abdominal pain she did have a CT abdominal pelvis with large multicystic right renal lesion concerning for possible abscess patient did have an episode of aspiration with worsening respiratory status for the patient was transferred to the ICU on 08/21/2024. On today's evaluation that is 08/22/2024, Patient is afebrile patient is currently on 2 L current oxygen and denies having any shortness of breath, the patient denies any chest pain did have some cough not bring up any sputum, the patient denies any nausea vomiting did not have any abdominal pain and no diarrhea. Patient white count is down to 12.2, creatinine 0.91 urine culture reported negative blood cultures are pending Objective - Vital Signs Vital signs: Vital Signs Temp 98.2 F 08/22/24 12:00 Pulse 117 H 08/22/24 13:00 Resp 21 08/22/24 13:00 BP 96/59 08/22/24 13:00 Pulse Ox 95 08/22/24 13:00 FiO2 Intake & Output 08/21/24 08/22/24 08/22/24 18:59 06:59 18:59 Intake Total 800 600 685.435 Output Total 485 335 225 Balance 315 265 460.435 Intake: IV 800 600 450 Dextrose 5%-0.45% NaCl 1, 400 50 000 ml @ 50 mls/hr IV . Q20H JESSICA Rx#:[id number] Dextrose 5%-0.45% NaCl 1, 550 350 000 ml @ 50 mls/hr IV . Q23H JESSICA with Sodium Bicarb (1 Meq/ml) 150 ml Rx#:[id number] Magnesium Sulfate-D5w Pmx 200 1 gm In Dextrose/Water 1 100ml.bag @ 100 mls/hr IVPB Q1H JESISCA Rx#: [id number] Piperacillin-Tazobactam 3 100 .375 gm In Sodium Chloride 0.9% 100 ml @ 25 mls/hr IVPB Q8HR JESSICA Rx# :[id number] Potassium Chloride 10 meq 200 In Water For Injection 1 100ml.bag @ 100 mls/hr IVPB Q1H JESSICA Rx#: [id number] Intake, IV Titration 235.435 Amount Heparin Sod,Pork in 0.45% 235.435 NaCl 25,000 unit In 0.45 % NaCl 1 250ml.bag @ 12 UNITS/KG/HR 4.899 mls/hr IV .Q24H JESSICA Rx#: [id number] Output: Urine 485 335 225 Other: Voiding Method Indwelling Catheter Indwelling Catheter Indwelling Catheter - Exam GENERAL DESCRIPTION: An elderly female lying in bed in no distress RESPIRATORY SYSTEM: Unlabored breathing , decreased breath sounds at bases HEART: S1 S2 regular rate and rhythm , ABDOMEN: Soft , no tenderness EXTREMITIES: No edema feet - Labs CBC & Chem 7: 08/22/24 05:42 08/22/24 05:42 Labs: Abnormal Lab Results - Last 24 Hours (Table) 08/21/24 08/21/24 08/21/24 Range/Units 08:08 15:14 18:29 WBC (3.8-10.6) k/uL RBC (3.80-5.40) m/uL Hgb (11.4-16.0) gm/dL Hct (34.0-46.0) % MCV (80.0-100.0) fL Neutrophils # (1.3-7.7) k/uL APTT (22.0-30.0) sec Sodium (137-145) mmol/L Carbon Dioxide (22-30) mmol/L BUN (7-17) mg/dL Glucose (74-99) mg/dL Plasma Lactic Acid Quintin 3.4 H* 3.8 H* (0.7-2.0) mmol/L Calcium (8.4-10.2) mg/dL AST (14-36) U/L Albumin (3.5-5.0) g/dL Procalcitonin 19.90 H (0.02-0.50) ng/mL 08/21/24 08/22/24 08/22/24 Range/Units 21:37 00:35 05:42 WBC 12.2 H (3.8-10.6) k/uL RBC 3.00 L (3.80-5.40) m/uL Hgb 10.2 L (11.4-16.0) gm/dL Hct 31.3 L (34.0-46.0) % MCV 104.4 H (80.0-100.0) fL Neutrophils # 10.4 H (1.3-7.7) k/uL APTT (22.0-30.0) sec Sodium (137-145) mmol/L Carbon Dioxide (22-30) mmol/L BUN (7-17) mg/dL Glucose (74-99) mg/dL Plasma Lactic Acid Quintin 2.7 H* 2.9 H* (0.7-2.0) mmol/L Calcium (8.4-10.2) mg/dL AST (14-36) U/L Albumin (3.5-5.0) g/dL Procalcitonin (0.02-0.50) ng/mL 08/22/24 08/22/24 Range/Units 05:42 05:42 WBC (3.8-10.6) k/uL RBC (3.80-5.40) m/uL Hgb (11.4-16.0) gm/dL Hct (34.0-46.0) % MCV (80.0-100.0) fL Neutrophils # (1.3-7.7) k/uL APTT 33.2 H (22.0-30.0) sec Sodium 134 L (137-145) mmol/L Carbon Dioxide 21 L (22-30) mmol/L BUN 34 H (7-17) mg/dL Glucose 149 H (74-99) mg/dL Plasma Lactic Acid Quintin (0.7-2.0) mmol/L Calcium 7.4 L (8.4-10.2) mg/dL AST 69 H (14-36) U/L Albumin 2.6 L (3.5-5.0) g/dL Procalcitonin (0.02-0.50) ng/mL Microbiology - Last 24 Hours (Table) 08/20/24 23:14 Urine Culture - Final Urine,Catheterized Assessment and Plan (1) Sepsis Current Visit: Yes Status: Acute Code(s): A41.9 - SEPSIS, UNSPECIFIED ORGANISM SNOMED Code(s): 03109839 (2) Urinary tract infection Current Visit: No Status: Acute Code(s): N39.0 - URINARY TRACT INFECTION, SITE NOT SPECIFIED SNOMED Code(s): 65001150 (3) Aspiration pneumonitis Current Visit: Yes Status: Acute Code(s): J69.0 - PNEUMONITIS DUE TO INHALATION OF FOOD AND VOMIT SNOMED Code(s): 313557426 Plan: 1patient with sepsis in this patient who did have significant elevated white count tachycardia elevated lactic acid source is likely renal in this patient recently has been diagnosed with a right ureteropelvic junction obstruction with right-sided hydronephrosis urine culture that was positive for E. coli 2-patient benefit from surgical invention sooner than later to the right kidney especially that the source of infection and possible abscess, CT urogram has been ordered by urology pending completion 3-patient currently being treated with Zosyn to cover for both aspiration pneumonitis as well as possible right kidney infection Family at the bedside question answered Dictation was produced using Ard[employer] dictation software. please excuse any grammatical, word or spelling errors. Time with Patient: Less than 30
[2024-08-22] MEDS: METOPROLOL TARTRATE 12.5 MG TAB PO SCH (14:27)
[2024-08-22] MEDS: IPRATROPIUM-ALBUTEROL 3 ML NEB INHALATION PRN (14:36)
--- NOTE | 2024-08-22 16:09 | CA ---
Transthoracic Echo Report Name: Briana Vanegas Age: 74 Gender: F : 1950 Exam Date: 08/20/2024 15:22 Exam Location: [facility] Ht (in): 59 Wt (lb): 90 Ordering Physician: Claus Desai MD Attending/Referring Phys: Lot Worker Ely Dangelo RDCS Procedure CPT: Indications: troponin Cardiac Hx: Technical Quality: Fair Contrast 1: Total Dose (mL): Contrast 2: Total Dose (mL): MEASUREMENTS (Male / Female) Normal Values 2D ECHO LVOT Diameter 1.9 cm LV Diastolic Volume MOD BP 85.0 cm??? 67 - 155 / 56 - 104 cm??? LV Systolic Volume MOD BP 63.6 cm??? 22 - 58 / 19 - 49 cm??? LV Ejection Fraction MOD BP 25.2 % >= 55 % LV Cardiac Index MOD BP 1847.2 cm???/min???m??? LV Diastolic Volume MOD 4C 92.7 cm??? LV Systolic Volume MOD 4C 71.2 cm??? LV Ejection Fraction MOD 4C 23.1 % LV Cardiac Index MOD 4C 1849.3 cm???/min???m??? LV Diastolic Length 4C 7.0 cm LV Systolic Length 4C 6.6 cm LV Diastolic Volume MOD 2C 76.3 cm??? LV Systolic Volume MOD 2C 54.6 cm??? LV Ejection Fraction MOD 2C 28.4 % LV Cardiac Index MOD 2C 1870.0 cm???/min???m??? LV Diastolic Length 2C 7.3 cm LV Systolic Length 2C 6.4 cm LA Volume 44.2 cm??? 18 - 58 / 22 - 52 cm??? LA Volume Index 34.0 cm???/m??? 16 - 28 cm???/m??? DOPPLER AV Peak Velocity 114.2 cm/s AV Peak Gradient 5.2 mmHg AV Mean Velocity 83.0 cm/s AV Mean Gradient 3.0 mmHg AV Velocity Time Integral 19.3 cm LVOT Peak Velocity 70.3 cm/s LVOT Peak Gradient 2.0 mmHg LVOT Velocity Time Integral 11.9 cm LVOT Stroke Volume 32.1 cm??? LVOT Stroke Volume Index 24.5 ml/m??? LVOT Cardiac Index 2769.3 cm???/min???m??? AV Area Cont Eq vti 1.7 cm??? AV Area Cont Eq pk 1.7 cm??? TR Peak Velocity 224.3 cm/s TR Peak Gradient 20.1 mmHg Right Atrial Pressure 15.0 mmHg Pulmonary Artery Systolic Pressu 35.1 mmHg Right Ventricular Systolic Press 35.1 mmHg PV Peak Velocity 63.1 cm/s PV Peak Gradient 1.6 mmHg FINDINGS Left Ventricle Left ventricular ejection fraction is estimated at 25-30 %. Moderately increased left ventricular systolic volume. Severely decreased left ventricular ejection fraction. Akinetic mid and apical pedro. Right Ventricle Normal right ventricular size and function. Mild pulmonary hypertension. Right Atrium Normal right atrial size. Left Atrium Moderately increased left atrial volume. Mitral Valve Mitral valve thickened. No mitral stenosis. No evidence for mitral valve prolapse. Trace mitral regurgitation. Aortic Valve Aortic valve not well visualized. No aortic stenosis. Mild aortic regurgitation. Tricuspid Valve Structurally normal tricuspid valve. No tricuspid stenosis. Mild tricuspid regurgitation. Pulmonic Valve Pulmonic valve not well visualized. No pulmonic stenosis. No pulmonic regurgitation. Pericardium No pericardial effusion. Left pleural effusion. Aorta Aortic annulus normal. CONCLUSIONS Indication chest discomfort rule out IA Severe LV dysfunction ejection fraction less than 30% very large apical, severe hypokinesis. Only the basal segments vanessa well in the left ventricle Previewed by: Dr. Gianfranco Lopez MD (Electronically Signed) Final Date: 22 August 2024 16:08
[2024-08-22] MEDS ORDERED: guaiFENesin SYRUP 100MG/5ML 200 MG/10 ML CUP PO PRN (17:08)
--- NOTE | 2024-08-22 17:26 | CT ---
EXAMINATION TYPE: CT urogram wo/w con DATE OF EXAM: 08/22/2024 5:14 PM COMPARISON: Multiple prior recent CT abdomen/pelvis studies, most recently dated 08/19/2024. CLINICAL INDICATION: Female, 74 years old with history of Hydronephrosis; PHH, Hydronephrosis. Pt radha ble to keep arms above head and was difficult in keeping arms still in one place. Unable to make 3D i mages due to lack of contrast showing in kidneys/ureters or bladder. TECHNIQUE: Urogram with imaging of the abdomen and pelvis. Coronal and sagittal reformats were performed. 2D and 3D reconstructions are performed to assist visualization of the urinary tract on a separate workstat ion. Contrast used:100cc mL of Isovue 300 with IV Contrast, CT DLP: 1273.8 mGycm, Automated exposure control for dose reduction was used. FINDINGS: Study limited due to suboptimal patient positioning/overlying streak artifact. Partially visualized lower lungs demonstrate small bilateral pleural effusion with adjacent likely lo wer lobe compressive atelectasis. Cirrhotic liver morphology. Gallbladder nonspecific mild wall thickening without evidence of cholelit hiasis. No abnormal biliary ductal dilatation. Spleen normal size and morphology. No suspicious adren al gland nodule. Pancreas unremarkable. Noncontrast portion of the study demonstrate no evidence of nephrolithiasis or urolithiasis. Contrast never enters the right renal collecting system. No suspicious filling defect within the opacified po rtions of the left renal collecting system and left ureters. Diffuse body wall edema/anasarca. 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 No evidence of hydroureter o n the right. Left kidney enhances normal without hydronephrosis or ureter. No suspicious enhancing le ft renal mass. Nonspecific small bowel wall thickening in the left hemiabdomen (image 35 axial). Moderate volume dif fuse ascites throughout the abdomen and pelvis. Uterus unremarkable. Paul catheter in place terminat ing within the urinary bladder lumen. Multilevel chronic thoracic and lumbar spine vertebral body com pression deformities are again visualized, not significantly changed from recent study 08/19/2024. Le ft hip ORIF with intramedullary swathi and gamma nail fixation. IMPRESSION: 1. 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 No evidence of hydroureter. 2. Cirrhotic liver morphology and moderate volume diffuse abdominopelvic ascites. Diffuse bilateral edema/anasarca also noted. 3. Wall thickening of left midabdominal small bowel loops which could reflect either infectious or i nflammatory enteritis versus portal enteropathy. 4. Additional nonacute findings as above, not significantly changed from recent study 08/19/2024. [facility], , 08/22/2024 5:24 PM
--- NOTE | 2024-08-22 18:38 | XR ---
EXAMINATION TYPE: XR chest 1V portable DATE OF EXAM: 08/22/2024 6:22 PM COMPARISON: None. CLINICAL INDICATION: Female, 74 years old with history of SOB, TECHNIQUE: XR chest 1V portable view(s) obtained. FINDINGS: The heart size is normal. The pulmonary vasculature is normal. Patchy infiltrates of the right lung. Findings have worsened from comparison. Correlate for pneumonia . Follow-up is recommended IMPRESSION: 1. There may be some developing patchy infiltrate within the right lung. Follow-up recommended [facility], Workstation: [facility], 08/22/2024 6:35 PM
[2024-08-22 19:12] LABS: ABG HCO3 23 mmol/L (21-25); ABG PCO2 26 mmHg (35-45); ABG PH 7.54 (7.35-7.45); ABG PO2 80 mmHg (83-108); ABG TCO2 23 mmol/L (19-24); Allen Test Performed? Yes
[2024-08-22 19:31] LABS: Glucose,Whole Blood 178 mg/dL (70-110)
[2024-08-22] MEDS: FUROSEMIDE 10 MG/ML 4 ML VIAL IV STA (20:01)
[2024-08-22] MEDS: ATORVASTATIN 10 MG TAB PO SCH (21:27)
[2024-08-22] MEDS: FUROSEMIDE 10 MG/ML 2 ML VIAL IV STA (23:11)
[2024-08-23 04:45] LABS: Basophils % (A) 0 %; Eosinophils % (A) 0 %; HCT 28.4 % (34.0-46.0); HGB 9.2 gm/dL (11.4-16.0); Lymphocytes # (A) 1.4 k/uL (1.0-4.8); Lymphocytes % (A) 12 %; MCH 33.3 pg (25.0-35.0); MCHC 32.4 g/dL (31.0-37.0); MCV 102.6 fL (80.0-100.0); Macrocytosis Slight; Monocytes # (A) 0.4 k/uL (0-1.0); Monocytes % (A) 3 %; Neutrophils # (A) 10.2 k/uL (1.3-7.7); Neutrophils % (A) 84 %; Platelet Count 237 k/uL (150-450); RBC 2.76 m/uL (3.80-5.40); RDW 13.8 % (11.5-15.5); WBC 12.1 k/uL (3.8-10.6)
[2024-08-23 05:03] LABS: ALT 18 U/L (4-34); AST 30 U/L (14-36); African American GFR (CKD) 76 (>60 ml/min/1.73 sqM); Albumin 2.1 g/dL (3.5-5.0); Alkaline Phosphatase 96 U/L (38-126); Anion Gap 9 mmol/L; Blood Urea Nitrogen 29 mg/dL (7-17); Calcium 7.4 mg/dL (8.4-10.2); Carbon Dioxide 27 mmol/L (22-30); Chloride 102 mmol/L (98-107); Glucose 183 mg/dL (74-99); Non-African American GFR(CKD) 66 (>60 ml/min/1.73 sqM); Sodium 138 mmol/L (137-145); Total Bilirubin 0.3 mg/dL (0.2-1.3); Total Protein 5.2 g/dL (6.3-8.2)
[2024-08-23 05:05] LABS: Potassium 2.2 mmol/L (3.5-5.1)
[2024-08-23] MEDS: POTASSIUM CHLORIDE 10 MEQ in WATER FOR INJECTION 1 100ML.BAG IVPB SCH ×3 (05:23→11:48)
--- NOTE | 2024-08-23 08:23 | XR ---
EXAMINATION TYPE: XR chest 1V DATE OF EXAM: 08/23/2024 5:16 AM COMPARISON: 08/22/2024 CLINICAL INDICATION: Female, 74 years old with history of SOB; PHH TECHNIQUE: XR chest 1V Frontal view of the chest. FINDINGS: Lungs/Pleura: No evidence of focal consolidation or pneumothorax. Blunting of the costophrenic angles is present. Pulmonary vascularity: Pulmonary vascular congestion. Heart/mediastinum: Cardiomediastinal silhouette is enlarged. Musculoskeletal: No acute osseous pathology. Other findings: None Lines/Tubes: IMPRESSION: Cardiomegaly, pulmonary vascular congestion and bilateral pleural effusions. Correlate with BNP for c ongestive heart failure. [facility], , 08/23/2024 8:21 AM
--- NOTE | 2024-08-23 09:29 | P.PN ---
Subjective Progress Note Date: 08/23/24 The patient came in the hospital with weakness and rt sided abdominal pain. She has a known non functioning hydronephrotic kidney right. I did a retrograde pyeologram identifying a mid ureteral stricture as well as a upj obstruction. SHe has had an apsiration pnemonia and [place]. HEr urine culture was negative. Her wbc are 12. Her BP is low. Objective - Vital Signs Vital signs: Vital Signs Temp 97.6 F 08/23/24 04:00 Pulse 80 08/23/24 07:00 Resp 13 08/23/24 07:00 BP 94/59 08/23/24 07:00 Pulse Ox 99 08/23/24 09:04 FiO2 40 08/23/24 04:02 Intake & Output 08/22/24 08/23/24 08/23/24 18:59 06:59 18:59 Intake Total 935.435 750 Output Total 330 1695 Balance 605.435 -945 Weight 55.2 kg Intake: IV 700 750 Dextrose 5%-0.45% NaCl 1, 600 650 000 ml @ 50 mls/hr IV . Q23H JESSICA with Sodium Bicarb (1 Meq/ml) 150 ml Rx#:[id number] Piperacillin-Tazobactam 3 100 100 .375 gm In Sodium Chloride 0.9% 100 ml @ 25 mls/hr IVPB Q8HR JESSICA Rx# :[id number] Intake, IV Titration 235.435 Amount Heparin Sod,Pork in 0.45% 235.435 NaCl 25,000 unit In 0.45 % NaCl 1 250ml.bag @ 12 UNITS/KG/HR 4.899 mls/hr IV .Q24H JESSICA Rx#: [id number] Output: Urine 330 1695 Other: Voiding Method Indwelling Catheter Indwelling Catheter - Labs CBC & Chem 7: 08/23/24 04:30 08/23/24 04:30 Labs: Abnormal Lab Results - Last 24 Hours (Table) 08/22/24 08/22/24 08/23/24 Range/Units 18:05 19:29 04:30 WBC 12.1 H (3.8-10.6) k/uL RBC 2.76 L (3.80-5.40) m/uL Hgb 9.2 L (11.4-16.0) gm/dL Hct 28.4 L (34.0-46.0) % MCV 102.6 H (80.0-100.0) fL Neutrophils # 10.2 H (1.3-7.7) k/uL ABG pH 7.54 H (7.35-7.45) ABG pCO2 26 L (35-45) mmHg ABG pO2 80 L (83-108) mmHg Potassium (3.5-5.1) mmol/L BUN (7-17) mg/dL Glucose (74-99) mg/dL POC Glucose (mg/dL) 178 H (70-110) mg/dL Calcium (8.4-10.2) mg/dL Total Protein (6.3-8.2) g/dL Albumin (3.5-5.0) g/dL 08/23/24 Range/Units 04:30 WBC (3.8-10.6) k/uL RBC (3.80-5.40) m/uL Hgb (11.4-16.0) gm/dL Hct (34.0-46.0) % MCV (80.0-100.0) fL Neutrophils # (1.3-7.7) k/uL ABG pH (7.35-7.45) ABG pCO2 (35-45) mmHg ABG pO2 (83-108) mmHg Potassium 2.2 L* (3.5-5.1) mmol/L BUN 29 H (7-17) mg/dL Glucose 183 H (74-99) mg/dL POC Glucose (mg/dL) (70-110) mg/dL Calcium 7.4 L (8.4-10.2) mg/dL Total Protein 5.2 L (6.3-8.2) g/dL Albumin 2.1 L (3.5-5.0) g/dL Microbiology - Last 24 Hours (Table) 08/20/24 23:14 Urine Culture - Final Urine,Catheterized Assessment and Plan Assessment: Impression: possible urinary sepsis. recent pneumonia and [place] Recommendations: I spoke with Dr Parsons about drainage of the right kidney. We unfortunately donot have an invasive radiologist. ALong with her poor medical condition acute and chronic I agree with a transfer to a [facility] for further evaluation and treatment. Time with Patient: Greater than 30
[2024-08-23] MEDS ORDERED: POTASSIUM CHLORIDE 10 MEQ in SODIUM CHLORIDE 0.9% 100 ML IVPB SCH (10:00)
--- NOTE | 2024-08-23 13:18 | P.PN ---
Subjective Progress Note Date: 08/23/24 74-year-old female patient, she apparently came in complaining of abdominal pain. The pain was apparently severe, and she had difficulty catching her breath. The patient was seen by the ER physician, and admitted with a diagnosis of intractable abdominal pain, and mental status changes. This morning, a rapid response was called on this team, and my ICU charge nurse, went to the patient, to see her. The patient apparently was not really having any abdominal pain this morning, but rather, it likely aspirated according to the charge nurse. The patient was seen by the primary service, and because the patient was tachycardic, and was in significant distress, the patient was transferred down to the intensive care unit, for further monitoring and management. The patient is seen in the ICU, room 266. She is currently on a nonrebreather. Her heart rate is 126, her saturations are 100%, and her respiratory symptoms are in the low 30s. She seems a bit more settled. She has got IV heparin running, and D5 with half-normal saline with 1 amp of sodium bicarb and at 50 cc an hour. She is not having any abdominal pain at this time. She was given vancomycin and cefepime. Current labs include a white count of 15.6, hemoglobin 9.3, hematocrit 29.2, and a platelet count of 320,000. The patient's PTT is 43.6. Blood gases show pO2 of 147, pCO2 of 24, and a pH of 7.41. These blood gases are consistent with a mixed acid-base disturbance, including a combined respiratory alkalosis, metabolic acidosis. Looking at her electrolyte profile, she appears to have a nonanion gap metabolic acidosis, as her sodium is 134, potassium 3.6, chlorides 106, bicarbonate concentration 16, anion gap 12, BUN 28, creatinine 1.16. The patient's lactic acid has jumped up to 4.9 from 3. Glucose is 175. Calcium 6.9. Troponin 0.608. Radiographic studies suggest the possibility of right lower lobe pneumonia. Progress note dated August 22, 2024. 74-year-old female seen in consultation yesterday. Today she is seen in room 266. She continues on oxygen at 2 L. The patient has an IV with dextrose and half-normal saline with 1 ampoule of sodium bicarb and at 50 cc an hour. The patient is also getting heparin via weight-based protocol. The patient did pass her swallow evaluation. Will add some breathing treatments to her regimen. Current labs include a white count 12.2, hemoglobin 10.2, macro 31.3, and platelet count 202,000. Sodium 134, potassium 4.8, chlorides 105, CO2 21, BUN 34, creatinine 0.91. Calcium is 7.4. Albumin is 2.6. Chest x-ray shows bibasilar infiltrates or atelectasis. Chest x-ray is essentially unchanged. On 08/23/2024, the patient is being seen in follow-up in the intensive care unit. The patient is a 74-year-old female with a past medical history significant for right sided hydronephrosis secondary to ureteropelvic junction obstruction and recently did have a right-sided retrograde pyelogram that was suggestive of hydronephrosis secondary to UPJ obstruction patient who presented to hospital with worsening abdominal pain she did have a CT abdominal pelvis with large multicystic right renal lesion concerning for possible abscess patient did have an episode of aspiration with worsening respiratory status for the patient was transferred to the ICU on 08/21/2024. The patient this morning is on 4 L of oxygen by nasal cannula. She is quite lethargic. Overnight, she was placed on a BiPAP and this morning she was switched back on oxygen 4 L/min nasal cannula. She is slow in response. She is still having some abdominal fullness and tenderness on examination.The patient has not been able to tolerate any oral intake the white cell count is at 12.1 with a hemoglobin 9.2 and a platelet count of 237, potassium level is at 2.2 that needs to be replaced with a BUN of 29 and a creatinine of 0.8 and a sodium levels at 138. LFTs are esse ntially within normal limits. The patient remains on bicarb infusion at rate of 50 cc an hour. The patient is on IV Zosyn. The chest x-ray from today shows evidence of cardiomegaly, pulm vessel congestion and bilateral pleural effusion. Discussed the case with urology and the patient will ultimately need a right nephrectomy. We thought it was reasonable to also optimize her condition by a IR guided percutaneous drainage of this right renal abscess/collection. Objective - Vital Signs Vital signs: Vital Signs Temp 97.6 F 08/23/24 04:00 Pulse 80 08/23/24 07:00 Resp 13 08/23/24 07:00 BP 94/59 08/23/24 07:00 Pulse Ox 96 08/23/24 07:00 FiO2 40 08/23/24 04:02 Intake & Output 08/22/24 08/23/24 08/23/24 18:59 06:59 18:59 Intake Total 935.435 750 Output Total 330 1695 Balance 605.435 -945 Weight 55.2 kg Intake: IV 700 750 Dextrose 5%-0.45% NaCl 1, 600 650 000 ml @ 50 mls/hr IV . Q23H JESSICA with Sodium Bicarb (1 Meq/ml) 150 ml Rx#:[id number] Piperacillin-Tazobactam 3 100 100 .375 gm In Sodium Chloride 0.9% 100 ml @ 25 mls/hr IVPB Q8HR JESSICA Rx# :[id number] Intake, IV Titration 235.435 Amount Heparin Sod,Pork in 0.45% 235.435 NaCl 25,000 unit In 0.45 % NaCl 1 250ml.bag @ 12 UNITS/KG/HR 4.899 mls/hr IV .Q24H JESSICA Rx#: [id number] Output: Urine 330 1695 Other: Voiding Method Indwelling Catheter Indwelling Catheter - Exam Extremely hard of hearing, very much lethargic, weak, somewhat encephalopathic, currently on 4 L of oxygen nasal cannula Head exam was generally normal. There was no scleral icterus or corneal arcus. Mucous membranes were moist. HEENT examination is grossly unremarkable. Mucous membranes are moist. No oral lesions. Neck supple. Full range of motion. No adenopathy thyromegaly or neck vein distention. Cardiovascular examination reveals regular rhythm rate. S1-S2 normal. No S3 or S4. No discernible murmur noted. Lungs reveal scattered rhonchi and wheezes. No crackles. Breath sounds equal bilaterally. Abdomen examination reveals some mild tenderness in the right side of the abdomen and the area seems to be quite full. No masses. No organomegaly and organs cannot be accurately palpated at this point in time. Extremities are intact. No cyanosis clubbing or edema. Skin is without rash or lesion. Neurologic examination is brief but nonfocal. The patient opens up her eyes and follows some simple commands. She was able to recognize family members. Nevertheless, she is quite lethargic and somewhat encephalopathic at this point in time. - Labs CBC & Chem 7: 08/23/24 04:30 08/23/24 04:30 Labs: Abnormal Lab Results - Last 24 Hours (Table) 08/21/24 08/22/24 08/22/24 Range/Units 08:08 18:05 19:29 WBC (3.8-10.6) k/uL RBC (3.80-5.40) m/uL Hgb (11.4-16.0) gm/dL Hct (34.0-46.0) % MCV (80.0-100.0) fL Neutrophils # (1.3-7.7) k/uL ABG pH 7.54 H (7.35-7.45) ABG pCO2 26 L (35-45) mmHg ABG pO2 80 L (83-108) mmHg Potassium (3.5-5.1) mmol/L BUN (7-17) mg/dL Glucose (74-99) mg/dL POC Glucose (mg/dL) 178 H (70-110) mg/dL Calcium (8.4-10.2) mg/dL Total Protein (6.3-8.2) g/dL Albumin (3.5-5.0) g/dL Procalcitonin 19.90 H (0.02-0.50) ng/mL 08/23/24 08/23/24 Range/Units 04:30 04:30 WBC 12.1 H (3.8-10.6) k/uL RBC 2.76 L (3.80-5.40) m/uL Hgb 9.2 L (11.4-16.0) gm/dL Hct 28.4 L (34.0-46.0) % MCV 102.6 H (80.0-100.0) fL Neutrophils # 10.2 H (1.3-7.7) k/uL ABG pH (7.35-7.45) ABG pCO2 (35-45) mmHg ABG pO2 (83-108) mmHg Potassium 2.2 L* (3.5-5.1) mmol/L BUN 29 H (7-17) mg/dL Glucose 183 H (74-99) mg/dL POC Glucose (mg/dL) (70-110) mg/dL Calcium 7.4 L (8.4-10.2) mg/dL Total Protein 5.2 L (6.3-8.2) g/dL Albumin 2.1 L (3.5-5.0) g/dL Procalcitonin (0.02-0.50) ng/mL Microbiology - Last 24 Hours (Table) 08/20/24 23:14 Urine Culture - Final Urine,Catheterized Assessment and Plan Plan: Abdominal pain with history of right sided hydronephrosis secondary to ureteropelvic junction obstruction and recently did have a right-sided retrograde pyelogram that was suggestive of hydronephrosis secondary to UPJ obstruction patient who presented to hospital with worsening abdominal pain she did have a CT abdominal pelvis with large multicystic right renal lesion concerning for possible abscess. The CT scan of the abdomen that was done on 08/19/2024 showed large multicystic right renal lesion with compression of the gallbladder between the lesion and the hepatic parenchyma. This obviously raises the concern for cystic renal mass versus xanthogranulomatous pyelonephritis. There was also a small amount of free fluid within the pelvis. 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 There was also a cirrhotic contour of the liver with moderate volume in the abdominal pelvics area consistent with ascites and diffuse bilateral edema/anasarca was noted. There was also wall thickening of the left mid abdominal small bowel loops, considering possibility of inflammatory enteritis versus portal enteropathy. The patient was seen by urology and the patient is being considered for a nephrectomy at a later stage Acute respiratory distress with hypoxemia, likely related to aspiration and possible aspiration pneumonia along with a component of CHF. Chest x-ray from this morning was most consistent with CHF and the patient is currently on 4 L O2 nasal cannula. The patient was on BiPAP overnight. Acute hypoxic respiratory failure, currently on 4 L of O2 nasal cannula Acute sepsis, likely secondary to a complicated urinary tract infection/right renal abscess. Previous urine cultures positive for E. coli on 08/10/2024. The patient had severe lactic acidosis at the time of admission and the procalcitonin level was quite elevated. Currently on no pressors Systolic heart failure with impaired LV function with an ejection fraction of 30% based on echocardiogram that was done on 08/20/2024 Acute non-ST segment elevation myocardial infarction, troponins have down trended and the patient is free of any chest pain Severe lactic acidosis, improved Anion gap metabolic acidosis, recovered Acute leukocytosis, improving History of nonfunctioning right kidney, please refer to previous urology evaluations E. coli urinary tract infection with a positive culture on 08/10/2024 Prior history of tobacco use, with possible underlying COPD. Recent 40 pound weight loss. History of osteoporosis. Plan: Keep the patient on O2 at 4 L nasal cannula BiPAP if needed Change IV fluids normal saline at rate of 50 cc an hour Continue IV Zosyn Had a lengthy discussion with the urology team. We thought that the patient is better served in a center where she can have a initial percutaneous drainage of this right kidney abscess/collection with subsequent nephrectomy. She will carry a high surgical risk as the patient has multiple comorbidities including coronary artery disease, recent non-ST segment elevation myocardial infarction a nd systolic heart failure. In addition, the patient has fallen significantly behind on her nutrition and she may carry a higher postoperative respiratory complications and other complications in general. Will work on transferring this patient to [facility] Urology is agreeable Meanwhile, we will continue the current care Condition is critical and will continue to follow make further recommendations based on her progress. This evaluation was done more than 30 minutes. Time with Patient: Greater than 30
[2024-08-23] MEDS: SODIUM CHLORIDE 0.9% 1,000 ML IV SCH (13:27)
--- NOTE | 2024-08-23 15:42 | P.DS ---
Providers Date of admission: 08/20/24 13:40 Expected date of discharge: 08/23/24 Attending physician: Nan Herrera Consults: 08/19/24 20:29 Consult Physician Routine Consulting Provider: Jeremiah Malhotra Consult Reason/Comments: kidney pain Do you want consulting provider notified?: Yes 08/20/24 11:35 Consult Physician Routine Consulting Provider: Albert Burns Consult Reason/Comments: elevated trop Do you want consulting provider notified?: Yes 08/20/24 12:37 Consult Physician Routine Consulting Provider: Estefani Zavala Consult Reason/Comments: sepsis Do you want consulting provider notified?: Yes 08/21/24 08:24 Consult Physician Routine Consulting Provider: Jo Cramer Consult Reason/Comments: resp. distress Do you want consulting provider notified?: Yes Primary care physician: Popeye Rodriguez [facility] Course: Discharge diagnoses; #Sepsis #Abdominal pain #UTI #History of nonfunctioning right kidney #Large multicystic right renal lesion, with anticipated nephrectomy #Lactic acidosis #Acute respiratory distress with hypoxemia, likely due to aspiration possible aspiration pneumonia #COPD #Elevated troponin Hospital course; Patient is hemodynamically stable on 4 L of oxygen NC and cleared for transfer to [facility] by [facility] ambulance. Patient is transferred for higher level of care for initial percutaneous drainage of right kidney abscess collection and subsequent right-sided nephrectomy given pain and obstruction of UPJ in her atrophic right kidney. Patient has multiple comorbidities including coronary artery disease, recent non-ST segment elevation myocardial infarction and systolic heart failure. In addition, the patient has fallen significantly behind on her nutrition and she may carry a higher postoperative respiratory complications and other complications in general. Patient, family and urology are agreeable. HPI Patient is a 74-year-old female with large cystic mass in right upper quadrant and atrophic right kidney who presents with abdominal pain and altered mental status. Patient states that pain started yesterday and progressed to the day. She describes pain as stabbing in nature. Previously with the pain she took Tylenol which only moderately improved her symptoms. She has associated symptoms of fever, shortness of breath, nausea, and denies chest pain or palpitations, vomiting. Patient was admitted 5 weeks ago with similar symptoms and was found to have cystic mass in right upper quadrant and atrophic kidney on CT abdomen with likely compression. Labs significant for hemoglobin 11.6, MCV 107.2, platelets 607, PT 13.7, INR 1.3, bicarb 7, glucose 220, lactic acid venous 11.1 => 7.9, calcium 7.8, AST 41, ALT 29, ALP 134, troponin 0.253, lipase 18, UA significant for cloudy appearance, 1+ protein, small leukocyte esterase, urine WBC 14, amorphous sediment rare, urine bacteria many, hyaline cast 39, urine mucus rare Chest x-ray done independently interpreted in the ER showed right lower lung airspace opacities. CT abdomen pelvis done independently interpreted showed large cystic mass involving right kidney, stable from prior CT 08/21/2024 Patient seen and examined at bedside. Patient had increased respiratory distress this morning requiring use of nonrebreather mask 15 L. This occurred after an apparent sip of water which she may have aspirated and caused her to cough. She was given 1 dose of IV Lasix 20 mg. And chest x-ray that showed some basilar infiltrates versus atelectasis. Concern for pneumonia and pulmonary consulted. She was subsequently transferred to ICU. She remains on D5 NS with bicarbonate, heparin drip, Zosyn, vancomycin and cefepime was discontinued. Blood and urine cultures pending. Echo pending. Urology, cardiology, infectious disease is also following, notes reviewed. Today's labs WBC 15.6, hemoglobin 9.3, MCV 104, platelets 320, ABG 7.4 on FiO2 100, sodium 134, potassium 36, bicarb 16, BUN 28, creatinine 1.16, glucose 168, lac tic acid 5.7 => 4.3 => 3.0 => 4.9 => 4.2, troponin 0.608 08/22. Patient seen and examined. Lab work done this morning showed WBC 12.2, hemoglobin 10.2, sodium 134, potassium 4.8, bicarb 21, BUN 34, creatinine 0.91.. States she feels better. Complaining of wheezing this morning PHYSICAL EXAMINATION: Vitals reviewed GENERAL: Nondistressed. HEENT: Pupils are round and equally reacting to light. EOMI. No scleral icterus. Normocephalic, atraumatic. CARDIOVASCULAR: S1 and S2 present. No murmurs, rubs, or gallops. PULMONARY: Coarse breath sound bilaterally, rhonchi audible ABDOMEN: Soft, nontender, nondistended, normoactive bowel sounds. No palpable organomegaly. MUSCULOSKELETAL: Joint deformities in hands and feet EXTREMITIES: No apparent cyanosis, clubbing, or pedal edema. NEUROLOGICAL: Alert. Gross neurological examination did not reveal any focal deficits. SKIN: Rashes bilateral lower extremities. Dictation was produced using [employer] dictation software. please excuse any g rammatical, word or spelling errors. Plan - Discharge Summary Discharge Rx Participant: No New Discharge Prescriptions: New Metoprolol Tartrate [Lopressor] 12.5 mg PO BID #60 tab Atorvastatin [Lipitor] 10 mg PO HS #30 tab Continue Zolpidem [Ambien] 10 mg PO HS Ergocalciferol (Vitamin D2) [Drisdol (50,000 Iu)] 1,250 mcg PO Q14D Alendronate Sodium [Fosamax] 70 mg PO SWEENEY Megestrol [Megace] 400 mg PO DAILY PRN PRN Reason: appetite Omeprazole 20 mg PO DAILY ALPRAZolam [Xanax] 0.25 mg PO BID PRN PRN Reason: Anxiety Multivitamins, Thera [Multivitamin (formulary)] 1 tab PO DAILY #30 tablet HYDROcodone/APAP 7.5-325MG [[place] 7.5-325] 1 tab PO Q6H PRN PRN Reason: Pain Potassium Chloride ER [K-Dur 10] 10 meq PO DAILY Discharge Medication List Zolpidem [Ambien] 10 mg PO HS 05/03/15 [History] ALPRAZolam [Xanax] 0.25 mg PO BID PRN 07/12/24 [History] Alendronate Sodium [Fosamax] 70 mg PO SWEENEY 07/12/24 [History] Ergocalciferol (Vitamin D2) [Drisdol (50,000 Iu)] 1,250 mcg PO Q14D 07/12/24 [History] Multivitamins, Thera [Multivitamin (formulary)] 1 tab PO DAILY #30 tablet 07/14/24 [Rx] HYDROcodone/APAP 7.5-325MG [[place] 7.5-325] 1 tab PO Q6H PRN 08/19/24 [History] Megestrol [Megace] 400 mg PO DAILY PRN 08/19/24 [History] Omeprazole 20 mg PO DAILY 08/19/24 [History] Potassium Chloride ER [K-Dur 10] 10 meq PO DAILY 08/19/24 [History] Atorvastatin [Lipitor] 10 mg PO HS #30 tab 08/23/24 [Rx] Metoprolol Tartrate [Lopressor] 12.5 mg PO BID #60 tab 08/23/24 [Rx] Follow up Appointment(s)/Referral(s): Popeye Rodriguez MD [Primary Care Provider] - 1-2 days Discharge Disposition: OTHER INSTITUTION NOT DEFINED
[2024-08-23 17:21] VITALS: BP 113/61; PULSE 105; RESP 25; TEMP 98.6
[2024-08-23] MEDS ORDERED: POTASSIUM CHLORIDE ER 20 MEQ TAB.ER PO SCH (18:00)
--- NOTE | 2024-08-23 20:57 | P.PN ---
Subjective Progress Note Date: 08/23/24 Principal diagnosis: Reason for follow-up with right-sided kidney infection and aspiration pneumonitis Patient is a 74-year-old female with a past medical history signif icant for right sided hydronephrosis secondary to ureteropelvic junction obstruction and recently did have a right-sided retrograde pyelogram that was suggestive of hydronephrosis secondary to UPJ obstruction patient who presented to hospital with worsening abdominal pain she did have a CT abdominal pelvis with large multicystic right renal lesion concerning for possible abscess patient did have an episode of aspiration with worsening respiratory status for the patient was transferred to the ICU on 08/21/2024. On today's evaluation that is 08/23/2024, patient has been afebrile, patient is breathing comfortably and is currently on 4 L nasal oxygen, patient denies having any significant chest pain occasional cough, patient denies nausea vomiting or diarrhea and no abdominal pain. Patient white count is 12.1 creatinine 0.88, blood urine culture have been negative so far chest x-ray this morning cardiomegaly pulmonary vascular congestion bilateral effusion Objective - Vital Signs Vital signs: Vital Signs Temp 97.6 F 08/23/24 04:00 Pulse 80 08/23/24 07:00 Resp 13 08/23/24 07:00 BP 94/59 08/23/24 07:00 Pulse Ox 99 08/23/24 09:04 FiO2 40 08/23/24 04:02 Intake & Output 08/22/24 08/23/24 08/23/24 18:59 06:59 18:59 Intake Total 935.435 750 Output Total 330 1695 Balance 605.435 -945 Weight 55.2 kg Intake: IV 700 750 Dextrose 5%-0.45% NaCl 1, 600 650 000 ml @ 50 mls/hr IV . Q23H JESSICA with Sodium Bicarb (1 Meq/ml) 150 ml Rx#:[id number] Piperacillin-Tazobactam 3 100 100 .375 gm In Sodium Chloride 0.9% 100 ml @ 25 mls/hr IVPB Q8HR JESSICA Rx# :[id number] Intake, IV Titration 235.435 Amount Heparin Sod,Pork in 0.45% 235.435 NaCl 25,000 unit In 0.45 % NaCl 1 250ml.bag @ 12 UNITS/KG/HR 4.899 mls/hr IV .Q24H [facility] Rx#: [id number] Output: Urine 330 1695 Other: Voiding Method Indwelling Catheter Indwelling Catheter - Exam GENERAL DESCRIPTION: An elderly female lying in bed in no distress RESPIRATORY SYSTEM: Unlabored breathing , decreased breath sounds at bases HEART: S1 S2 regular rate and rhythm , ABDOMEN: Soft , no tenderness EXTREMITIES: No edema feet - Labs CBC & Chem 7: 08/23/24 04:30 08/23/24 04:30 Labs: Abnormal Lab Results - Last 24 Hours (Table) 08/22/24 08/22/24 08/23/24 Range/Units 18:05 19:29 04:30 WBC 12.1 H (3.8-10.6) k/uL RBC 2.76 L (3.80-5.40) m/uL Hgb 9.2 L (11.4-16.0) gm/dL Hct 28.4 L (34.0-46.0) % MCV 102.6 H (80.0-100.0) fL Neutrophils # 10.2 H (1.3-7.7) k/uL ABG pH 7.54 H (7.35-7.45) ABG pCO2 26 L (35-45) mmHg ABG pO2 80 L (83-108) mmHg Potassium (3.5-5.1) mmol/L BUN (7-17) mg/dL Glucose (74-99) mg/dL POC Glucose (mg/dL) 178 H (70-110) mg/dL Calcium (8.4-10.2) mg/dL Total Protein (6.3-8.2) g/dL Albumin (3.5-5.0) g/dL 08/23/24 Range/Units 04:30 WBC (3.8-10.6) k/uL RBC (3.80-5.40) m/uL Hgb (11.4-16.0) gm/dL Hct (34.0-46.0) % MCV (80.0-100.0) fL Neutrophils # (1.3-7.7) k/uL ABG pH (7.35-7.45) ABG pCO2 (35-45) mmHg ABG pO2 (83-108) mmHg Potassium 2.2 L* (3.5-5.1) mmol/L BUN 29 H (7-17) mg/dL Glucose 183 H (74-99) mg/dL POC Glucose (mg/dL) (70-110) mg/dL Calcium 7.4 L (8.4-10.2) mg/dL Total Protein 5.2 L (6.3-8.2) g/dL Albumin 2.1 L (3.5-5.0) g/dL Microbiology - Last 24 Hours (Table) 08/20/24 23:14 Urine Culture - Final Urine,Catheterized Assessment and Plan (1) Sepsis Status: Acute Code(s): A41.9 - SEPSIS, UNSPECIFIED ORGANISM SNOMED Code(s): 08938669 (2) Urinary tract infection Status: Acute Code(s): N39.0 - URINARY TRACT INFECTION, SITE NOT SPECIFIED SNOMED Code(s): 88405695 (3) Aspiration pneumonitis Status: Acute Code(s): J69.0 - PNEUMONITIS DUE TO INHALATION OF FOOD AND VOMIT SNOMED Code(s): 117227961 Plan: 1patient with sepsis in this patient who did have significant elevated white count tachycardia elevated lactic acid source is likely renal in this patient re cently has been diagnosed with a right ureteropelvic junction obstruction with right-sided hydronephrosis urine culture that was positive for E. coli 2-urology recommending the patient to be transferred to urgent care for drainage of the infected kidney and cultures 3-patient will be continued on Zosyn to cover for both aspiration pneumonitis as well as infected right kidney to the patient is evaluated by ID service at tertiary care Family at the bedside question answered Dictation was produced using [employer] dictation software. please excuse any grammatical, word or spelling errors. Time with Patient: Less than 30
[2024-08-24] MEDS ORDERED: POTASSIUM CHLORIDE ER 10 MEQ TAB.ER.PRT PO SCH (09:00)
--- NOTE | 2024-08-24 13:19 | CDI ---
Documentation Clarification Form Date: 08/24/2024 01:02:33 PM From: Domenica Veloz Phone: Admit Date: 08/20/2024 01:40:00 PM Patient Name: Briana Vanegas Visit Number: [id number] Discharge Date: 08/23/2024 06:20:00 PM ATTENTION: The Clinical Documentation Specialists (CDI) and [facility] Coding Staff appreciate your assistance in clarifying documentation. Please respond to the clarification below the line at the bottom and electronically sign. The CDI & [facility] Coding staff will review the response and follow-up if needed. Please note: Queries are made part of the Legal Health Record. If you have any questions, please contact the author of this message via ITS. Doctor/Provider: Renée Medel on behalf of Tony Juares There is documentation of Elevated troponin in consult note on 08/21/2024. Additional clarification is requested. History/Risk Factors: Patient is a 74-year-old female with largecystic massin right upper quadrant andatrophic right kidneywho presents withabdominal painandaltered mental status. Patient states thatpainstarted yesterday and progressed to the day. She describespainas stabbing in nature Clinical Indicators: cardiology consult on 08/11 -Elevated troponin, likely secondary tohypoxia Troponin0.608.,pn #Elevatedtroponin Initialtroponin0.253 => 1.80 => 1.18 => 0.608 On 08/23 pn -Acute non-ST segment elevationmyocardialinfarction, troponins have down trended and the patient is free of any chest pain . On 08/21 consult note - Rule out non-ST segment elevationmyocardialinfarction. Pn 08/23 -She has had an aspiration pneumonia andMI. HEr urine culture was negative. Treatment: Start metoprolol 2.5 mg IV push every 8 hours, hold for systolic less than 100. Can you please clarify based on Elevated troponin level? [ xx ] Unable to determine (Template Last Revised: November 2020) MTDD
== END 2024-08-23 18:20 | disposition short-term general hospital (02) | DRG 871 ==
LOC: EC 18:58 → 4SSUR 20:32 → 3SCARD 21:58 → OBSVTOIN 08-20 13:40 → 3SCARD 08-20 16:15 → 2SICU 08-21 08:46
PROVIDERS: ADMIT Hospitalist; ATTEND Hospitalist
PROC: 5A09357 Assistance with Respiratory Ventilation, Less than 24 Consecutive Hours, Continuous Positive Airway Pressure (ICD-10-PCS; principal; 2024-08-23)
DX: A41.9 Sepsis, unspecified organism (principal); G93.41 Metabolic encephalopathy; J69.0 Pneumonitis due to inhalation of food and vomit; N15.1 Renal and perinephric abscess; J96.01 Acute respiratory failure with hypoxia; J18.9 Pneumonia, unspecified organism; N13.6 Pyonephrosis; E87.20 Acidosis, unspecified; I50.22 Chronic systolic (congestive) heart failure; E46 Unspecified protein-calorie malnutrition; G93.49 Other encephalopathy; J44.0 Chronic obstructive pulmonary disease with (acute) lower respiratory infection; N26.1 Atrophy of kidney (terminal); I25.10 Atherosclerotic heart disease of native coronary artery without angina pectoris; R62.7 Adult failure to thrive; M81.0 Age-related osteoporosis without current pathological fracture; K21.9 Gastro-esophageal reflux disease without esophagitis; F32.A Depression, unspecified; F41.9 Anxiety disorder, unspecified; I25.2 Old myocardial infarction; Z68.26 Body mass index [BMI] 26.0-26.9, adult; Z87.891 Personal history of nicotine dependence
CPT/HCPCS: 36415; 36600; 51798; 71045; 71046; 74176; 74178; 74400; 80053; 81001; 82150; 82272; 82805; 83605; 83690; 83735; 83880; 84100; 84145; 84484; 85025; 85379; 85610; 85730; 87040; 87086; 93005; 93306; 94640; 94660; 94664; 94760; 96361; 96365; 96366; 96367; 96368; 96375; 96376; 99285